=== PATIENT | female | born 1950 | race Caucasian/White ===

== ENCOUNTER 2017-11-22 10:30 | Observation (INO) | payer MEDICARE ==
[2017-11-22 12:33] LABS: BASOPHIL % 0.2 % (0.0-0.4); Basophil (Absolute #) 0.02 (0-0.4); Eosinophil % 0.5 % (0.00-5.0); Eosinophil (Absolute #) 0.04 (0-0.5); Granulocyte Absolute (ANC) 4.75 (1.4-6.9); Granulocytes % 59.2 % (36.0-66.0); Hemoglobin 12.4 gm/dl (12.0-16.0); Lymphocyte (Absolute #) 2.56 (1.0-4.6); Lymphocytes % 31.9 % (24.0-44.0); Mean Cell Volume 92.5 fl (78-100); Mean Corpuscular Hemoglobin 30.2 pg (26-32); Mean Corpuscular Hgb Concent. 32.6 g/dl (32-36); Mean Platelet Volume 11.1 fl (6-9.5); Monocyte (Absolute #) 0.66 (0.0-1.3); Monocytes % 8.2 % (0.0-12.0); Platelet Count 184 K/mm3 (150-450); Red Blood Count 4.11 M/mm3 (4.1-5.4); Red Cell Distribution Width 14.9 % (11.5-14.0)
[2017-11-22 13:16] LABS: ALKALINE PHOSPHATASE 72 U/L (38-126); ANION GAP 13.7 MEQ/L (5-15); BLOOD UREA NITROGEN 15 mg/dL (7-17); CHLORIDE 103 mmol/L (98-107); Calcium 9.4 mg/dL (8.4-10.2); Carbon Dioxide 27 mmol/L (22-30); Creatinine 1 0.76 mg/dL (0.52-1.04); Glucose 129 mg/dL (74-106); Potassium 4.4 mmol/L (3.5-5.1); SGOT/AST 24 U/L (14-36); SGPT/ALT 26 U/L (0-35); SODIUM 139 mmol/L (137-145); Total Protein 7.2 g/dL (6.3-8.2)
[2017-11-22] MEDS ORDERED: Zofran 4 MG/2 ML VIAL IV PRN (14:10)
[2017-11-22] MEDS ORDERED: NovoLOG Insulin SQ PRN (14:16)
[2017-11-22] MEDS: SUBLIMAZE 100 MCG/2 ML IV PRN ×2 (14:27→20:41)
[2017-11-22] MEDS ORDERED: TYLENOL 325 MG PO PRN (14:43)
[2017-11-22] MEDS ORDERED: PROVENTIL 2.5 MG/3 ML NEB IH PRN (14:43)
[2017-11-22] MEDS ORDERED: Nitrostat 0.4 MG Tablet SL PRN (14:45)
[2017-11-22] MEDS: FLAGYL 500 MG IVPB 500 MG/100 ML BAG IV SCH ×2 (14:53→22:26)
[2017-11-22] MEDS: Sodium Chloride 0.9% 1000 ML 1,000 ML IV SCH (14:53)
[2017-11-22] MEDS ORDERED: MEDICATION INTERVENTION MC SCH (15:00)
[2017-11-22] MEDS ORDERED: NON-FORMULARY ITEM (Dicyclomine Hcl [Dicyclomine Hcl] 10 MG) PO SCH (15:00)
[2017-11-22 16:12] LABS: AMYLASE 57 U/L (30-110); LIPASE 58 U/L (23-300)
[2017-11-22] MEDS: BENTYL 20 MG PO SCH ×2 (16:23→21:06)
[2017-11-22] MEDS: NovoLOG Insulin SQ SCH (16:24)
[2017-11-22] MEDS ORDERED: INSULIN ASPART 30 UNIT SQ SCH (17:00)
--- NOTE | 2017-11-22 18:11 | XRAY ---
Exam: CT of the abdomen and pelvis without and with IV contrast from 11/22/2017. CTDI: 23.68 Comparison: CT of the abdomen and pelvis without IV contrast from 08/20/2016. Indication: Complains of diffuse abdominal pain 1 day, constipation, nausea/vomiting. The patient gives a prior history of partial sigmoid colon resection due to diverticulitis, cholecystectomy, appendectomy, and hysterectomy. She also states that she has had a right lower lobe lung resection and prior right breast surgery. Technique: Non-IV contrast axial images were obtained through the abdomen down to the midpelvis. Subsequently, multiple post-IV contrast axial images were obtained through the abdomen and pelvis during and following automated injection of 100 cc of Isovue-370 contrast material.. Delayed axial images were obtained through the abdomen and pelvis as well. Reconstructed coronal and sagittal images were created and reviewed. No oral contrast was given. Findings: The lung bases reveal no active disease. There is some mild pleural thickening along the posterior and posterior medial aspects of the right lung base representing no change. The non-IV contrast images reveal an unremarkable uniform attenuation within the liver. There is evidence of prior cholecystectomy. No renal calculi or hydronephrosis is seen. Abundant stool is seen within the colon suggesting constipation. There appears to be a small supraumbilical ventral hernia. A portion of colon protrudes into the ventral hernia, although I see no obstruction or strangulation. In retrospect, I believe this is seen on the prior study, although it is easier to detect on the current exam. There is a prominent inferior portion of the right lobe of the liver suggestive of a Simona's lobe (normal variant). No hepatic mass or pathological biliary duct distention is seen. The spleen is of normal size and reveals no mass. A small calcified splenic granuloma is seen. The pancreas is identified and appears unremarkable. There is some prominence of the distal common bile duct at the level of pancreatic head. It measures 10 mm in diameter which is likely a consequence of prior cholecystectomy. The adrenal glands appear unremarkable. Both kidneys function and reveal no mass or hydronephrosis. Bilateral extrarenal pelvi are seen, larger on the right than left, as an incidental note. Portions of both ureters are identified which appear unremarkable. No gross abnormality of the urinary bladder is seen, although it is not well distended. Moderate atherosclerotic vascular calcification is seen within the abdominal aorta, renal arteries, mesenteric arteries, and iliac arteries including the common femoral arteries. No abdominal aortic aneurysm is seen. No abnormal retroperitoneal lymphadenopathy is seen. There is no free intraperitoneal air. The appendix is surgically absent. No inflammatory changes are seen within the right lower quadrant. Suture material is seen within the lower pelvis at the site of partial sigmoid colon resection with reanastomoses. This is unchanged. I still note some scattered diverticula within the descending colon and proximal sigmoid colon. No findings of acute diverticulitis are seen. There is no evidence of bowel obstruction or bowel wall thickening. I again note moderate colonic stool retention suggestive of constipation. The pelvis reveals evidence of prior hysterectomy. I cannot exclude a tiny amount of nonspecific free fluid within the lower pelvis just to the right of midline on delayed axial images #71 and #72. A small amount of air is seen within the vaginal vault. This is unchanged from 08/20/2016. The ovaries are unable to be confidently identified. The skeleton reveals no acute fracture or aggressive bone lesion. 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 Very prominent posterior osteophyte is seen at L3-L4 representing no change. There appears to be compromise of the spinal sac (i.e. spinal stenosis) at this level on axial image #39 of series #5 and sagittal images #95 through number #97 of series #106. I believe this is unchanged from 08/20/2016. Mild posterior osteophyte formation is seen at L4-L5 and L5-S1 as well. Impression: 1. There is a small supraumbilical ventral hernia which contains a "knuckle" of transverse colon within it. However, I see no evidence of bowel obstruction or strangulation. This ventral hernia is a bit more evident than on the prior study of 08/20/2016. 2. Status post partial sigmoid colon resection with reanastomosis. Mild scattered colonic diverticulosis is again seen throughout the remainder of the descending colon and proximal sigmoid colon. No findings of recurrent acute diverticulitis are seen. 3. Abundant scattered stool is seen within the colon consistent with constipation. 4. No other acute inflammatory process or free air or significant free fluid is seen. There may be a tiny amount of free intraperitoneal fluid within the lower pelvis to the right of midline. This is nonspecific. 5. The patient is status post appendectomy, cholecystectomy, and hysterectomy as well. 6. Skeletal findings, as discussed above. These findings are stable.
[2017-11-22] MEDS: Pepcid 20 MG VIAL IV SCH (21:05)
[2017-11-22] MEDS: Ranexa 500 MG PO SCH (21:06)
[2017-11-22] MEDS: NEURONTIN 300 MG PO SCH (21:06)
[2017-11-22] MEDS: FEOSOL 325 MG PO SCH (21:06)
[2017-11-22] MEDS: Novolin N SQ SCH (21:15)
[2017-11-22] MEDS ORDERED: DUONEB 0.5-3 MG/3 ml Neb IH PRN (21:23)
[2017-11-22] MEDS ORDERED: ZOCOR 20MG PO SCH (22:00)
[2017-11-22] MEDS ORDERED: PROTONIX 40 MG IV IV SCH (22:00)
[2017-11-22] MEDS ORDERED: NON-FORMULARY ITEM (Glycopyrrolate/Formoterol Fum [Bevespi Aerosphere Inhaler] 2 PUFF) IH SCH (22:00)
[2017-11-23] MEDS: Sodium Chloride 0.9% 1000 ML 1,000 ML IV SCH (04:33)
[2017-11-23] MEDS: FLAGYL 500 MG IVPB 500 MG/100 ML BAG IV SCH (06:30)
[2017-11-23] MEDS: Novolin N SQ SCH (08:37)
[2017-11-23] MEDS: NovoLOG Insulin SQ SCH ×2 (08:38→12:09)
[2017-11-23] MEDS ORDERED: Glucophage 500 MG PO SCH (10:00)
[2017-11-23] MEDS ORDERED: DHA PO SCH (10:00)
[2017-11-23] MEDS ORDERED: Colace 100 MG PO SCH (10:00)
[2017-11-23] MEDS ORDERED: FISH OIL PO SCH (10:00)
[2017-11-23] MEDS ORDERED: EPA PO SCH (10:00)
[2017-11-23] MEDS ORDERED: Zestril 5 MG PO SCH (10:00)
[2017-11-23] MEDS ORDERED: Imdur 30 MG PO SCH (10:00)
[2017-11-23] MEDS ORDERED: Prozac 20 MG PO SCH (10:00)
[2017-11-23] MEDS ORDERED: BABY ASPIRIN 81 MG CHEW PO SCH (10:00)
[2017-11-23] MEDS ORDERED: ECOTRIN 81 MG PO SCH (10:00)
[2017-11-23] MEDS ORDERED: Tricor 145 MG PO SCH (10:00)
[2017-11-23] MEDS ORDERED: FENOFIBRATE 145 MG PO SCH (10:00)
[2017-11-23] MEDS ORDERED: NON-FORMULARY ITEM (Docusate Sodium 100 MG) PO SCH (10:00)
[2017-11-23] MEDS ORDERED: HOLD METFORMIN PRODUCTS FOR 48 HOURS MC SCH (10:00)
[2017-11-23] MEDS ORDERED: FISH OIL 1,000 MG CAPSULE PO SCH (10:00)
[2017-11-23] MEDS ORDERED: SYNTHROID 25 MCG PO SCH (10:00)
[2017-11-23] MEDS ORDERED: AMARYL 4 MG PO SCH (10:00)
[2017-11-23] MEDS ORDERED: NON-FORMULARY ITEM (Fluoxetine Hcl [Fluoxetine Hcl] 40 MG) PO SCH (10:00)
[2017-11-23] MEDS: BENTYL 20 MG PO SCH (10:03)
[2017-11-23] MEDS: Ranexa 500 MG PO SCH (10:03)
[2017-11-23] MEDS: NEURONTIN 300 MG PO SCH (10:04)
[2017-11-23] MEDS: FEOSOL 325 MG PO SCH (10:04)
[2017-11-23] MEDS: Pepcid 20 MG VIAL IV SCH (10:05)
[2017-11-23 11:20] VITALS: BP 119/60; PULSE 63; O2SAT 98
--- NOTE | 2017-11-23 12:32 | PCM.DS ---
Discharge Summary Date of Admission: 11/22/17 11:05 Admitting Physician: BONIFACIO GRAY Primary Care Provider: MAYANK COX Allergies Allergies hydromorphone [From Dilaudid] Allergy (Severe, Verified 11/22/17 16:45) morphine Allergy (Severe, Verified 11/22/17 14:54) B/P issues. Becomes SOB. acetaminophen [From Darvocet-N 100] Allergy (Verified 03/20/13 15:41) "SHUTS DOWN MY SYSTEM" amoxicillin [From Augmentin] Allergy (Verified 11/22/17 16:59) clavulanic acid [From Augmentin] Allergy (Verified 11/22/17 16:59) codeine Allergy (Verified 03/20/13 15:41) "SHUTS MY SYSTEMS DOWN" nalbuphine HCl [From Nubain] Allergy (Verified 03/20/13 15:41) "SHUTS MY SYSTEM DOWN" propoxyphene napsylate [From Darvocet-N 100] Allergy (Verified 03/20/13 15:41) "SHUTS DOWN MY SYSTEM" smz-tmp ds Allergy (Uncoded 11/22/17 16:59) surgerical tape Adverse Reaction (Uncoded 11/22/17 17:27) Hospital Summary - Hospital Course Hospital Course: Chief Complaint Diagnosis Diverticulitis Allergies Allergy/AdvReac Type Severity Reaction Status Date / Time hydromorphone [From Dilaudid] Allergy Severe Verified 11/22/17 16:45 morphine Allergy Severe Verified 11/22/17 14:54 acetaminophen Allergy "SHUTS Verified 03/20/13 15:41 [From Darvocet-N 100] DOWN MY SYSTEM" amoxicillin [From Augmentin] Allergy Verified 11/22/17 16:59 clavulanic acid Allergy Verified 11/22/17 16:59 [From Augmentin] codeine Allergy "SHUTS MY Verified 03/20/13 15:41 SYSTEMS DOWN" nalbuphine HCl [From Nubain] Allergy "SHUTS MY Verified 03/20/13 15:41 SYSTEM DOWN" propoxyphene napsylate Allergy "SHUTS Verified 03/20/13 15:41 [From Darvocet-N 100] DOWN MY SYSTEM" smz-tmp ds Allergy Uncoded 11/22/17 16:59 surgerical tape AdvReac Uncoded 11/22/17 17:27 Vital Signs (Last 24 hours) Temp Pulse Resp BP BP Pulse Ox 11/23/17 11:20 98.0 F 63 18 119/60 98 11/23/17 07:37 99.4 F 67 18 112/56 97 11/23/17 04:03 98.2 F 63 18 121/59 98 11/22/17 23:57 98.5 F 63 18 114/56 96 11/22/17 19:54 98.4 F 64 18 106/51 106/51 96 11/22/17 19:21 63 18 94 L 11/22/17 16:06 98 F 67 20 138/61 96 Home Medications Medication Instructions Recorded Confirmed Last Taken Type Acetaminophen 325 mg [Tylenol 650 mg PO Q4H PRN PRN 11/22/17 11/22/17 Unknown History 325 mg] Albuterol 2.5 mg/3 ml Neb 2.5 mg IH Q6HPRN PRN 11/22/17 11/22/17 Unknown History [Proventil 2.5 mg/3 ml Neb] Dicyclomine HCl 10 mg PO TID 11/22/17 11/22/17 11/22/17 History Docusate Sodium 100 mg PO DAILY 11/22/17 11/22/17 11/22/17 History 100 mg Famotidine 20 mg [Pepcid 20 20 mg PO BID 11/22/17 11/22/17 11/22/17 History MG] 20 mg Ferrous Sulfate 325 mg PO BID 11/22/17 11/22/17 11/22/17 History Fish Oil/Dha/Epa [Fish Oil 1,200 1 each PO DAILY 11/22/17 11/22/17 11/22/17 History mg Fish Oil] Glimepiride 4 mg [Amaryl 4 4 mg PO BID 11/22/17 11/22/17 11/22/17 History mg] Glycopyrrolate/Formoterol Fum 2 puff IH BID 11/22/17 11/22/17 11/22/17 History [Bevespi Aerosphere Inhaler] Insulin Aspart [Novolog Flexpen] 30 unit SQ TID 11/22/17 11/22/17 11/22/17 History Insulin NPH Human Recom [Novolin 100 unit SQ BID 11/22/17 11/22/17 11/22/17 History N] Levothyroxine Sodium 25 Mcg 25 mcg PO DAILY 11/22/17 11/22/17 11/22/17 History [Synthroid 25 Mcg] Metformin HCl 500 mg PO DAILY 11/22/17 11/22/17 11/22/17 History 500 mg Nitroglycerin 0.4 mg Tablet 0.4 mg SL UD 11/22/17 11/22/17 Unknown History [Nitrostat 0.4 MG Tablet] Ranolazine 500 MG [Ranexa 500 500 mg PO BID 11/22/17 11/22/17 11/22/17 History MG] Simvastatin 40 mg [Zocor 40 mg] 40 mg PO HS 11/22/17 11/22/17 1 Day Ago History ~11/21/17 40 mg Current Medications Generic Name Dose Route Start Last Admin Trade Name Freq PRN Reason Stop Dose Admin Acetaminophen 650 mg 11/22/17 14:43 11/22/17 19:40 Tylenol 325 Mg PO 12/22/17 14:42 650 mg Q4H PRN PRN Administration pain or temp Albuterol/Ipratropium 3 ml 11/22/17 21:23 Duoneb 0.5-3 Mg/3 Ml Neb IH 12/22/17 21:22 QIDPRN PRN SHORTNESS OF BREATH/WHEEZING Aspirin 81 mg 11/23/17 10:00 11/23/17 10:03 Ecotrin 81 Mg PO 12/23/17 09:59 81 mg DAILY ERIC Administration Dicyclomine HCl 10 mg 11/22/17 15:00 11/23/17 10:03 Bentyl 20 Mg PO 12/22/17 14:59 10 mg TID ERIC Administration Docusate Sodium 100 mg 11/23/17 10:00 11/23/17 10:04 Colace 100 Mg PO 12/23/17 09:59 100 mg DAILY ERIC Administration Famotidine 20 mg 11/22/17 22:00 11/23/17 10:05 Pepcid 20 Mg Vial IV 12/22/17 21:59 20 mg Q12HT ERIC Administration Fenofibrate 145 mg 11/23/17 10:00 11/23/17 10:04 Tricor 145 Mg PO 12/23/17 09:59 145 mg DAILY ERIC Administration Fentanyl Citrate 50 mcg 11/22/17 14:08 11/22/17 20:41 Sublimaze 100 Mcg/2 Ml IV 11/27/17 14:07 50 mcg Q6H PRN PRN Administration PAIN Ferrous Sulfate 325 mg 11/22/17 22:00 11/23/17 10:04 Feosol 325 Mg PO 12/22/17 21:59 325 mg BID ERIC Administration Fish Oil 1,000 mg 11/23/17 10:00 11/23/17 10:04 Fish Oil 1,000 Mg Capsule PO 12/23/17 09:59 1,000 mg DAILY ERIC Administration Fluoxetine HCl 40 mg 11/23/17 10:00 11/23/17 10:04 Prozac 20 Mg PO 12/23/17 09:59 40 mg DAILY ERIC Administration Gabapentin 300 mg 11/22/17 22:00 11/23/17 10:04 Neurontin 300 Mg PO 12/22/17 21:59 300 mg BID ERIC Administration Glimepiride 4 mg 11/23/17 10:00 11/23/17 11:12 Amaryl 4 Mg PO 12/23/17 09:59 4 mg BID ERIC Administration Heparin Sodium (Beef Lung) 500 units 11/22/17 15:06 Heparin Lock Flush 100 Units/Ml 5ml Syringe PORT FLUSH 12/22/17 15:05 PRN PRN IV PORT FLUSH Metronidazole 500 mg in 100 mls @ 200 mls/hr 11/22/17 14:30 11/23/17 06:30 Flagyl 500 Mg Ivpb IV 12/22/17 14:29 200 mls/hr Q8HT ERIC Administration Sodium Chloride 1,000 mls @ 30 mls/hr 11/22/17 14:15 11/23/17 04:33 Sodium Chloride 0.9% 1000 Ml IV 12/22/17 14:14 60 mls/hr .Q24H ERIC Administration Insulin Aspart 0 unit 11/22/17 14:16 Novolog Insulin SQ 12/22/17 14:15 UD PRN HYPERGLYCEMIA Insulin Aspart 30 unit 11/22/17 17:00 11/23/17 12:09 Novolog Insulin SQ 12/22/17 16:59 30 unit TIDWM ERIC Administration Insulin Human NPH 100 unit 11/22/17 22:00 11/23/17 08:37 Novolin N SQ 12/22/17 21:59 Not Given BIDWM ERIC Isosorbide Mononitrate 30 mg 11/23/17 10:00 11/23/17 10:03 Imdur 30 Mg PO 12/23/17 09:59 30 mg DAILY ERIC Administration Levothyroxine Sodium 25 mcg 11/23/17 10:00 11/23/17 10:04 Synthroid 25 Mcg PO 12/23/17 09:59 25 mcg DAILY ERIC Administration Lisinopril 5 mg 11/23/17 10:00 11/23/17 10:04 Zestril 5 Mg PO 12/23/17 09:59 5 mg DAILY ERIC Administration Metformin HCl 500 mg 11/23/17 10:00 11/23/17 10:04 Glucophage 500 Mg PO 12/23/17 09:59 500 mg DAILY ERIC Administration Miscellaneous Information 0 each 11/22/17 15:00 Medication Intervention 12/22/17 14:59 .RT TO CHECK WITH PT [facility] Nitroglycerin 0.4 mg 11/22/17 14:45 Nitrostat 0.4 Mg Tablet 12/22/17 14:44 PRN PRN Non-Formulary Medication 1 each 11/23/17 10:00 Hold Metformin Products For 48 Hours 11/24/17 10:01 DAILY [facility] Ondansetron HCl 4 mg 11/22/17 14:10 Zofran 4 Mg/2 Ml Vial IV 12/22/17 14:09 Q6H PRN PRN NAUSEA/VOMITING Pantoprazole Sodium 40 mg 11/22/17 22:00 11/22/17 21:01 Protonix 40 Mg Iv IV 12/22/17 21:59 40 mg HS ERIC Administration Ranolazine 500 mg 11/22/17 22:00 11/23/17 10:03 Ranexa 500 Mg PO 12/22/17 21:59 500 mg BID ERIC Administration Simvastatin 40 mg 11/22/17 22:00 11/22/17 21:06 Zocor 20mg PO 12/22/17 21:59 40 mg HS ERIC Administration Discontinued Medications Generic Name Dose Route Start Last Admin Trade Name Freq PRN Reason Stop Dose Admin Albuterol Sulfate 2.5 mg 11/22/17 14:43 Proventil 2.5 Mg/3 Ml Neb IH 12/22/17 14:42 Q6HPRN PRN wheezing/sob Intake & Output (Last 24 hours) 11/21/17 11/22/17 11/23/17 11/24/17 11:59 11:59 11:59 11:59 Intake Total 2803 Output Total 3100 Balance -297 Weight 98.8 kg Laboratory Results (Last 24 hours) 11/22/17 11/22/17 11/22/17 Unknown 16:15 15:08 WBC RBC Hgb Hct MCV MCH MCHC RDW Plt Count MPV Gran % Eos # (Auto) Absolute Lymphs (auto) Absolute Monos (auto) Lymphocytes % Monocytes % Eosinophils % Basophils % Absolute Granulocytes Basophils # Sodium Potassium Chloride Carbon Dioxide Anion Gap BUN Creatinine Estimated GFR Glucose 42 L* Hemoglobin A1c 6.76 H Lactic Acid Calcium Total Bilirubin AST ALT Alkaline Phosphatase Serum Total Protein Albumin Amylase 57 Lipase 58 11/22/17 11/22/17 11/22/17 14:15 12:25 12:25 WBC 8.0 RBC 4.11 Hgb 12.4 Hct 38.0 MCV 92.5 MCH 30.2 MCHC 32.6 RDW 14.9 H Plt Count 184 MPV 11.1 H Gran % 59.2 Eos # (Auto) 0.04 Absolute Lymphs (auto) 2.56 Absolute Monos (auto) 0.66 Lymphocytes % 31.9 Monocytes % 8.2 Eosinophils % 0.5 Basophils % 0.2 Absolute Granulocytes 4.75 Basophils # 0.02 Sodium 139 Potassium 4.4 Chloride 103 Carbon Dioxide 27 Anion Gap 13.7 BUN 15 Creatinine 0.76 Estimated GFR > 60.0 Glucose 129 H Hemoglobin A1c Lactic Acid 1.2 Calcium 9.4 Total Bilirubin 0.60 AST 24 ALT 26 Alkaline Phosphatase 72 Serum Total Protein 7.2 Albumin 4.0 Amylase Lipase Orders (Last 24 hours) Category Date Time Status ACCUCHECK [Accucheck] ACHS Care 11/22/17 14:17 Active Infection Control Consult ROUTINE Cons 11/22/17 12:14 Active 1800 Calorie ADA Diet 11/22/17 Dinner Active ABDOMEN AND PELVIS W&WO CONTRA [CT] Routine Exams 11/22/17 14:18 Completed AMYLASE Routine Lab 11/22/17 15:08 Completed CBC W DIFF Urgent Lab 11/22/17 12:25 Completed CMP Urgent Lab 11/22/17 12:25 Completed Glucose Routine Lab 11/22/17 16:15 Completed LIPASE Routine Lab 11/22/17 15:08 Completed Lactic Acid Routine Lab 11/22/17 14:15 Completed Acetaminophen 325 mg [Tylenol 325 mg] Med 11/22/17 14:43 Active 650 mg PO Q4H PRN PRN Albuterol 2.5 mg/3 ml Neb [Proventil 2.5 mg/3 ml Neb Med 11/22/17 14:43 Discontinued ] 2.5 mg IH Q6HPRN PRN Albuterol/Ipratropium 3ml Neb* [DUONEB 0.5-3 MG/3 ml Med 11/22/17 21:23 Active Neb] 3 ml IH QIDPRN PRN Aspirin EC 81 mg [Ecotrin 81 mg] Med 11/23/17 10:00 Active 81 mg PO DAILY Dicyclomine HCl 20 mg [Bentyl 20 mg] Med 11/22/17 15:00 Active 10 mg PO TID Docusate Sodium 100 mg [Colace 100 MG] Med 11/23/17 10:00 Active 100 mg PO DAILY Famotidine 20 mg Vial [Pepcid 20 MG VIAL] Med 11/22/17 22:00 Active 20 mg IV Q12HT Fenofibrate,Micronized 145 mg* [Tricor 145 MG] Med 11/23/17 10:00 Active 145 mg PO DAILY Fentanyl Citrate 100 Mcg/2 ml* [Sublimaze 100 Mcg/2 ml* Med 11/22/17 14:08 Active ] 50 mcg IV Q6H PRN PRN Ferrous Sulfate 325 mg [Feosol 325 mg] Med 11/22/17 22:00 Active 325 mg PO BID Fluoxetine HCl 20 mg [Prozac 20 MG] Med 11/23/17 10:00 Active 40 mg PO DAILY Gabapentin 300 mg [Neurontin 300 mg] Med 11/22/17 22:00 Active 300 mg PO BID Glimepiride 4 mg [Amaryl 4 mg] Med 11/23/17 10:00 Active 4 mg PO BID Heparin Flush 500 units/5 ml [Heparin Lock Flush 100 Med 11/22/17 15:06 Active Units/ml 5ml Syringe] 500 units PORT FLUSH PRN PRN Hold Metformin [Hold Metformin Products For 48 Hours] Med 11/23/17 10:00 Active 1 each DAILY Insulin Aspart [NovoLOG Insulin] Med 11/22/17 17:00 Active 30 unit SQ TIDWM Insulin Aspart [NovoLOG Insulin] Med 11/22/17 14:16 Active See Dose Instructions SQ UD PRN Insulin NPH Human Recom [Novolin N] Med 11/22/17 22:00 Active 100 unit SQ BIDWM Isosorbide Mononitrate 30 mg [Imdur 30 MG] Med 11/23/17 10:00 Active 30 mg PO DAILY Levothyroxine Sodium 25 Mcg [Synthroid 25 Mcg] Med 11/23/17 10:00 Active 25 mcg PO DAILY Lisinopril 5 mg [Zestril 5 MG] Med 11/23/17 10:00 Active 5 mg PO DAILY Medication Intervention Med 11/22/17 15:00 Active 0 each .RT TO CHECK WITH PT Metformin HCl 500 mg [Glucophage 500 MG] Med 11/23/17 10:00 Active 500 mg PO DAILY Metronidazole 500 mg Premix [Flagyl 500 mg Ivpb] Med 11/22/17 14:30 Active 500 mg in 100 ml IV Q8HT NaCl 0.9% 1000 ml [Sodium Chloride 0.9% 1000 ML] 1,000 Med 11/22/17 14:15 Active ml IV 30 mls/hr Nitroglycerin 0.4 mg Tablet [Nitrostat 0.4 MG Tablet Med 11/22/17 14:45 Active ] 0.4 mg SL PRN PRN [place]-3 Fatty Acids/Fish Oil [Fish Oil 1,000 mg Med 11/23/17 10:00 Active Capsule] 1,000 mg PO DAILY Ondansetron HCl 4 mg/2 ml [Zofran 4 MG/2 ML VIAL] Med 11/22/17 14:10 Active 4 mg IV Q6H PRN PRN Pantoprazole 40 mg [Protonix 40 mg IV] Med 11/22/17 22:00 Active 40 mg IV HS Ranolazine 500 MG [Ranexa 500 MG] Med 11/22/17 22:00 Active 500 mg PO BID Simvastatin 20Mg [Zocor 20Mg] Med 11/22/17 22:00 Active 40 mg PO HS Respiratory Nebulizer PRN RT 11/22/17 21:23 Active Patient Care Notes (Last 24 hours) 11/23/17 08:38 Nursing Note by Anushka Michel AM scheduled insulin held , accu check 110. Discussed with pt regarding her low blood sugar 11/22/17. Pt refused insulin this am. Initialized on 11/23/17 08:38 - END OF NOTE 11/22/17 16:59 Nursing Note by Anushka Michel Glucose 42. Pt has eaten since glucose was taken. Accu check [address] Gray aware. Initialized on 11/22/17 16:59 - END OF NOTE 11/22/17 16:31 Nursing Note by Anushka Michel Dr called and received update on pt. Initialized on 11/22/17 16:31 - END OF NOTE 11/22/17 16:03 Nursing Note by Anushka Michel Callled the lab department to let them be aware of new order. Initialized on 11/22/17 16:03 - END OF NOTE - Vitals & Intake/Output Vital Signs: Vital Signs Temperature 98.0 F 11/23/17 11:20 Pulse Rate 63 11/23/17 11:20 Respiratory Rate 18 11/23/17 11:20 Blood Pressure 119/60 11/23/17 11:20 O2 Sat by Pulse Oximetry 98 11/23/17 11:20 Intake & Output: Intake & Output 11/21/17 11/22/17 11/23/17 11/24/17 11:59 11:59 11:59 11:59 Intake Total 2803 Output Total 3100 Balance -297 Weight 98.8 kg - Lab Result Diagrams: 11/22/17 12:25 11/22/17 12:25 Lab Results-Last 24 Hrs: Accuchecks Date 11/23/17 Date 11/23/17 Date 11/22/17 Date 11/22/17 Time 11:30 Time 07:30 Time 22:00 Time 16:00 Accucheck Value: 187 Accucheck Value: 110 Accucheck Value: 88 Accucheck Value: 45 Lab Results-Last 24 Hours 11/22/17 11/22/17 11/22/17 Range/Units 12:25 12:25 14:15 WBC 8.0 (4.0-10.5) K/mm3 RBC 4.11 (4.1-5.4) M/mm3 Hgb 12.4 (12.0-16.0) gm/dl Hct 38.0 (35-47) % MCV 92.5 (78-100) fl MCH 30.2 (26-32) pg MCHC 32.6 (32-36) g/dl RDW 14.9 H (11.5-14.0) % Plt Count 184 (150-450) K/mm3 MPV 11.1 H (6-9.5) fl Gran % 59.2 (36.0-66.0) % Eos # (Auto) 0.04 (0-0.5) Absolute Lymphs (auto) 2.56 (1.0-4.6) Absolute Monos (auto) 0.66 (0.0-1.3) Lymphocytes % 31.9 (24.0-44.0) % Monocytes % 8.2 (0.0-12.0) % Eosinophils % 0.5 (0.00-5.0) % Basophils % 0.2 (0.0-0.4) % Absolute Granulocytes 4.75 (1.4-6.9) Basophils # 0.02 (0-0.4) Sodium 139 (137-145) mmol/L Potassium 4.4 (3.5-5.1) mmol/L Chloride 103 (98-107) mmol/L Carbon Dioxide 27 (22-30) mmol/L Anion Gap 13.7 (5-15) MEQ/L BUN 15 (7-17) mg/dL Creatinine 0.76 (0.52-1.04) mg/dL Estimated GFR > 60.0 ML/MIN Glucose 129 H (74-106) mg/dL Hemoglobin A1c (4.5-6.0) % Lactic Acid 1.2 (0.4-2.0) Calcium 9.4 (8.4-10.2) mg/dL Total Bilirubin 0.60 (0.2-1.3) mg/dL AST 24 (14-36) U/L ALT 26 (0-35) U/L Alkaline Phosphatase 72 (38-126) U/L Serum Total Protein 7.2 (6.3-8.2) g/dL Albumin 4.0 (3.5-5.0) g/dL Amylase (30-110) U/L Lipase (23-300) U/L 11/22/17 11/22/17 11/22/17 Range/Units 15:08 16:15 Unknown WBC (4.0-10.5) K/mm3 RBC (4.1-5.4) M/mm3 Hgb (12.0-16.0) gm/dl Hct (35-47) % MCV (78-100) fl MCH (26-32) pg MCHC (32-36) g/dl RDW (11.5-14.0) % Plt Count (150-450) K/mm3 MPV (6-9.5) fl Gran % (36.0-66.0) % Eos # (Auto) (0-0.5) Absolute Lymphs (auto) (1.0-4.6) Absolute Monos (auto) (0.0-1.3) Lymphocytes % (24.0-44.0) % Monocytes % (0.0-12.0) % Eosinophils % (0.00-5.0) % Basophils % (0.0-0.4) % Absolute Granulocytes (1.4-6.9) Basophils # (0-0.4) Sodium (137-145) mmol/L Potassium (3.5-5.1) mmol/L Chloride (98-107) mmol/L Carbon Dioxide (22-30) mmol/L Anion Gap (5-15) MEQ/L BUN (7-17) mg/dL Creatinine (0.52-1.04) mg/dL Estimated GFR ML/MIN Glucose 42 L* (74-106) mg/dL Hemoglobin A1c 6.76 H (4.5-6.0) % Lactic Acid (0.4-2.0) Calcium (8.4-10.2) mg/dL Total Bilirubin (0.2-1.3) mg/dL AST (14-36) U/L ALT (0-35) U/L Alkaline Phosphatase (38-126) U/L Serum Total Protein (6.3-8.2) g/dL Albumin (3.5-5.0) g/dL Amylase 57 (30-110) U/L Lipase 58 (23-300) U/L Micro Results-Entire Visit: Accuchecks Date 11/23/17 Date 11/23/17 Date 11/22/17 Date 11/22/17 Time 11:30 Time 07:30 Time 22:00 Time 16:00 Accucheck Value: 187 Accucheck Value: 110 Accucheck Value: 88 Accucheck Value: 45 - Radiology Exams Ordered Rad Exams-Entire Visit: Radiology Procedures Category Date Time Status ABDOMEN AND PELVIS W&WO CONTRA [CT] Routine Exams 11/22/17 14:18 Completed - Procedures and Test Procedures and Tests throughout Hospitalization: Therapy Orders & Screens 11/22/17 21:23 Respiratory Nebulizer PRN Comment: JULIAN KENDRICK Diagnosis: Diverticulitis Discharge Exam General Appearance: no apparent distress, alert Neurologic Exam: alert, oriented x 3, cooperative, normal mood/affect, nml cerebellar function, sensation nml, No motor deficits Skin Exam: normal color, warm, dry Eye Exam: PERRL, EOMI, eyes nml inspection Ears, Nose, Throat Exam: normal ENT inspection, pharynx normal, moist mucous membranes Neck Exam: normal inspection, non-tender, supple, full range of motion Respiratory Exam: normal breath sounds, lungs clear, No respiratory distress Cardiovascular Exam: regular rate/rhythm, normal heart sounds Gastrointestinal/Abdomen Exam: soft, No tenderness, No mass Extremity Exam: normal inspection, normal range of motion Back Exam: normal inspection, normal range of motion, No CVA tenderness, No vertebral tenderness Pelvic Exam: deferred Rectal Exam: deferred Final Diagnosis/Problem List - Final Discharge Diagnosis/Problem (1) Diverticulitis Current Visit: Yes Status: Acute Onset Date: ~11/22/17 - Discharge Disposition: Home, Self-Care Condition: Stable Prescriptions: No Action Lisinopril 5 mg [Zestril 5 MG] 5 mg PO DAILY Omeprazole 20 MG [Prilosec 20 mg] 20 mg PO DAILY Gabapentin 300 mg [Neurontin 300 mg] 300 mg PO BID Fluoxetine HCl 40 mg PO DAILY Isosorbide Mononitrate 30 mg [Imdur 30 MG] 30 mg PO DAILY Fenofibrate [Lipofen] 145 mg PO DAILY Aspirin [Baby Aspirin] 81 mg PO DAILY Famotidine 20 mg [Pepcid 20 MG] 20 mg PO BID Simvastatin 40 mg [Zocor 40 mg] 40 mg PO HS Acetaminophen 325 mg [Tylenol 325 mg] 650 mg PO Q4H PRN PRN PRN Reason: pain or temp Docusate Sodium 100 mg PO DAILY Metformin HCl 500 mg PO DAILY Fish Oil/Dha/Epa [Fish Oil 1,200 mg Fish Oil] 1 each PO DAILY Nitroglycerin 0.4 mg Tablet [Nitrostat 0.4 MG Tablet] 0.4 mg SL UD Insulin NPH Human Recom [Novolin N] 100 unit SQ BID Ranolazine 500 MG [Ranexa 500 MG] 500 mg PO BID Ferrous Sulfate 325 mg PO BID Insulin Aspart [Novolog Flexpen] 30 unit SQ TID Dicyclomine HCl 10 mg PO TID Levothyroxine Sodium 25 Mcg [Synthroid 25 Mcg] 25 mcg PO DAILY Glimepiride 4 mg [Amaryl 4 mg] 4 mg PO BID Glycopyrrolate/Formoterol Fum [Bevespi Aerosphere Inhaler] 2 puff IH BID Albuterol 2.5 mg/3 ml Neb [Proventil 2.5 mg/3 ml Neb] 2.5 mg IH Q6HPRN PRN PRN Reason: wheezing/sob Follow up with: MAYANK COX [Primary Care Provider] - 1 Week
== END 2017-11-23 13:30 | disposition home or self-care (01) ==
LOC: MED SURG 11:05
PROVIDERS: ADMIT General Practice; ATTEND General Practice
DX: K57.32 Diverticulitis of large intestine without perforation or abscess without bleeding (principal); K57.12 Diverticulitis of small intestine without perforation or abscess without bleeding; E10.9 Type 1 diabetes mellitus without complications; Z79.4 Long term (current) use of insulin; M79.7 Fibromyalgia; M19.90 Unspecified osteoarthritis, unspecified site; J44.9 Chronic obstructive pulmonary disease, unspecified; Z85.118 Personal history of other malignant neoplasm of bronchus and lung; Z85.3 Personal history of malignant neoplasm of breast; Z79.899 Other long term (current) drug therapy
CPT/HCPCS: 36415; 74178; 80053; 82150; 82947; 83036; 83605; 83690; 85025; 94760; G0378; J1642; J3010; A9270-GY

== ENCOUNTER 2019-07-23 21:00 | Observation (INO) | payer MEDICARE ==
--- NOTE | 2019-07-23 21:48 | ERPHSYRPT ---
- History of Present Illness Time Seen by Provider: 07/23/19 21:10 Historian: patient Exam Limitations: no limitations Patient Subjective Stated Complaint: pt states she has been sick all day. states she has been weak and her blood sugar was 491 at home. states she began having chest pain on the way into the er. was seen at [facility] and had steroid shot today Triage Nursing Assessment: pt alert and oriented, answers questions approp. pt back per wheelchair and transfers to stretcher with minimal assist. respirations nonlabored with lungs cta. bilat upper and lower ext strength equal and wnl. puils equal and reacitve. heart rate 90 on monitor with sinus rhythm noted. Physician History: Patient is a 68-year-old female history of diabetes presents to our ED with complaints of generalized weakness and chest pain. Patient states that she had a steroid injection today for upper respiratory symptomology. Patient states shortly thereafter she began to feel generalized weakness. Patient checked her glucose at home. Blood glucose was 491. Patient was driving to our ED for an evaluation. In route patient developed chest pain. Chest pain is lower substernal. No radiation. Pain described as an ache. No specific worsening improving factors. No trauma. No fever. Symptoms are moderate in intensity. at bedside. They voiced no other complaints or concerns at this time. Timing/Duration: today Activities at Onset: none Quality: aching Location: substernal Chest Pain Radiation: no radiation Severity of Pain-Max: moderate Severity of Pain-Current: moderate Modifying Factors: Improves With: nothing Associated Symptoms: heartburn, cough, hurts to breathe, diaphoresis, fever, No nausea, No vomiting, No palpitations, No abdominal pain, No shortness of breath , No weakness, No headache Prior Chest Pain/Cardiac Workup: no prior chest pain Nitro Today/Relief: no nitro taken today Aspirin Treatment Today: no aspirin today Allergies/Adverse Reactions: hydromorphone [From Dilaudid] Allergy (Severe, Verified 07/23/19 21:27) morphine Allergy (Severe, Verified 07/24/19 01:46) B/P issues. Becomes SOB. acetaminophen [From Darvocet-N 100] Allergy (Verified 07/23/19 21:27) "SHUTS DOWN MY SYSTEM" amoxicillin [From Augmentin] Allergy (Verified 07/23/19 21:27) clavulanic acid [From Augmentin] Allergy (Verified 07/23/19 21:27) codeine Allergy (Verified 07/23/19 21:27) "SHUTS MY SYSTEMS DOWN" nalbuphine HCl [From Nubain] Allergy (Verified 07/23/19 21:27) "SHUTS MY SYSTEM DOWN" propoxyphene napsylate [From Darvocet-N 100] Allergy (Verified 07/23/19 21:27) "SHUTS DOWN MY SYSTEM" gabapentin [From Neurontin] Adverse Reaction (Verified 07/24/19 03:51) smz-tmp ds Allergy (Uncoded 07/23/19 21:27) surgerical tape Adverse Reaction (Uncoded 07/23/19 21:27) Home Medications: Aspirin [Baby Aspirin] 81 mg PO DAILY 03/20/13 [History] Fluoxetine HCl 40 mg PO HS 03/20/13 [History] Isosorbide Mononitrate 30 mg [Imdur 30 MG] 60 mg PO DAILY 03/20/13 [History ] Lisinopril 5 mg [Zestril 5 MG] 2.5 mg PO DAILY 03/20/13 [History] Omeprazole 20 MG [Prilosec 20 mg] 20 mg PO DAILY 03/20/13 [History] Acetaminophen 325 mg [Tylenol 325 mg] 650 mg PO Q4H PRN PRN 11/22/17 [ History] Docusate Sodium 100 mg PO DAILY 11/22/17 [History] Famotidine 20 mg [Pepcid 20 MG] 20 mg PO HS 11/22/17 [History] Ferrous Sulfate 325 mg PO BID 11/22/17 [History] Glimepiride 4 mg [Amaryl 4 mg] 4 mg PO BID 11/22/17 [History] Insulin Aspart [Novolog Flexpen] 30 unit SQ TID 11/22/17 [History] Insulin NPH Human Recom [Novolin N] 60 unit SQ BID 11/22/17 [History] Metformin HCl 250 mg PO BID 11/22/17 [History] Nitroglycerin 0.4 mg Tablet [Nitrostat 0.4 MG Tablet] 0.4 mg SL UD [History] Ranolazine 500 MG [Ranexa 500 MG] 0 mg PO BID 11/22/17 [History] Atorvastatin Calcium [Lipitor] 40 mg PO DAILY 07/24/19 [History] Carvedilol 3.125 mg [Coreg 3.125 MG] 3.125 mg PO BID 07/24/19 [History] Clopidogrel Bisulfate [Clopidogrel] 1 tab PO DAILY 07/24/19 [History] Ergocalciferol (Vitamin D2) [Vitamin D2] 1 cap PO UD 07/24/19 [History] Nabumetone [Relafen] 500 mg PO BID 07/24/19 [History] Hx Tetanus, Diphtheria Vaccination/Date Given: Yes Hx Influenza Vaccination/Date Given: Yes Hx Pneumococcal Vaccination/Date Given: Yes Immunizations Up to Date: Yes - Review of Systems Constitutional: No Fever, No Chills Eyes: No Symptoms Ears, Nose, & Throat: No Symptoms Respiratory: No Cough, No Dyspnea Cardiac: Chest Pain, No Edema, No Palpitations, No Syncope Abdominal/Gastrointestinal: No Abdominal Pain, No Nausea, No Vomiting, No Diarrhea Genitourinary Symptoms: No Dysuria Musculoskeletal: No Symptoms, No Back Pain, No Neck Pain Skin: No Symptoms, No Rash Neurological: No Dizziness, No Focal Weakness, No Sensory Changes Psychological: No Symptoms Endocrine: No Symptoms All Other Systems: Reviewed and Negative - Past Medical History Pertinent Past Medical History: Yes Neurological History: No Pertinent History ENT History: No Pertinent History Cardiac History: Coronary Artery Disease, High Cholesterol, Hypertension Respiratory History: COPD, Sleep Apnea Endocrine Medical History: Diabetes Type II, Hypothyroidism Musculoskeletal History: Arthritis, Fibromyalgia GI Medical History: Diverticulitis, Hernia History: Other Psycho-Social History: No Pertinent History Female Reproductive Disorders: Breast Cancer Other Medical History: BACK SURGERY LAMINECTOMY L4-L5 1987. BILATERAL CARPAL TUNNEL SURGERY. THORACIC OUTLET SURGERY. PARTIAL COLECTOMY DUE TO DIVERTICULITIS - Past Surgical History Past Surgical History: Yes Neuro Surgical History: No Pertinent History Cardiac: No Pertinent History, Cardiac Stent Respiratory: Lobectomy Gastrointestinal: Appendectomy, Cholecystectomy, Colon Resection, Hernia Repair Genitourinary: No Pertinent History Musculoskeletal: Other Female Surgical History: Hysterectomy, Other Other Surgical History: Right lower lobe lung removed, partial right mastectomy. carpal tunnel. EGD. Colonoscopy. - Social History Smoking Status: Former smoker Exposure to second hand smoke: No Drug Use: none Patient Lives Alone: No - Nursing Vital Signs Nursing Vital Signs: Initial Vital Signs Temperature 97.3 F 07/23/19 21:04 Pulse Rate 90 07/23/19 21:04 Respiratory Rate 20 07/23/19 21:04 Blood Pressure 162/92 07/23/19 21:04 O2 Sat by Pulse Oximetry 96 07/23/19 21:04 Pain Scale Pain Intensity 3 - Physical Exam General Appearance: no apparent distress, alert Eye Exam: PERRL/EOMI, eyes nml inspection Ears, Nose, Throat Exam: normal ENT inspection, moist mucous membranes Neck Exam: normal inspection, non-tender, supple, full range of motion Respiratory Exam: normal breath sounds, lungs clear, No respiratory distress Cardiovascular Exam: regular rate/rhythm, normal heart sounds Gastrointestinal/Abdomen Exam: soft, No tenderness, No mass Back Exam: normal inspection, No CVA tenderness, No vertebral tenderness Extremity Exam: normal inspection, normal range of motion Neurologic Exam: alert, oriented x 3, cooperative, normal mood/affect, sensation nml, No motor deficits Skin Exam: normal color, warm, dry SpO2 Interpretation: normal SpO2: 96 O2 Delivery: Room Air - Course EKG Interpreted by Me: Sinus Tach, Left Silas Deviation, NORMAL INTERVALS - Radiology Exams Chest X-ray Interpretation: Interpreted by me (Blunting of right costophrenic angle. Pleural effusion. 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 Care 07/23/19 21:35 Completed Code Status Order ROUTINE Care 07/24/19 02:53 Active EKG-ER Only STAT Care 07/23/19 21:35 Completed IV Care Q6H Care 07/24/19 02:53 Active IV Insertion STAT Care 07/23/19 21:35 Completed Neuro Checks Q4H Care 07/24/19 02:[address] in Observation ROUTINE Care 07/24/19 02:53 Active Pulse Oximetry (ED) STAT Care 07/23/19 21:35 Completed 2000 Calorie ADA Diet 07/24/19 Breakfast Active CHEST 1 VIEW (PORTABLE) Stat Exams 07/23/19 21:35 Taken CBC W DIFF AM.LAB Lab 07/24/19 04:05 Completed CBC W DIFF Stat Lab 07/23/19 21:10 Completed CMP AM.LAB Lab 07/24/19 04:05 Received CMP Stat Lab 07/23/19 21:10 Completed D-DIMER QUANTITATIVE Stat Lab 07/23/19 21:10 Completed PROTIME WITH INR Stat Lab 07/23/19 21:10 Completed TROPONIN AM.LAB Lab 07/24/19 04:05 Received TROPONIN Q3H Lab 07/23/19 21:10 Completed TROPONIN Q3H Lab 07/24/19 00:45 Completed TROPONIN Q3H Lab 07/24/19 06:57 Received TROPONIN Q3H Lab 07/24/19 09:45 Ordered Urine Triage Profile Stat Lab 07/23/19 21:50 Completed Pulse Oximetry CONTINUOUS RT 07/24/19 02:53 Active Medication Summary Generic Name Dose Route Start Last Admin Trade Name Dana PRN Reason Stop Dose Admin Heparin Sodium (Beef Lung) 500 units 07/24/19 04:17 07/24/19 04:24 Heparin Lock Flush 100 Units/Ml 5ml Syringe PORT FLUSH 08/23/19 04:16 500 units PRN PRN Administration IV PORT FLUSH Insulin Aspart 0 unit 07/24/19 03:00 Novolog Insulin SQ 08/23/19 02:59 UD PRN HYPERGLYCEMIA Insulin Human NPH 70 unit 07/24/19 18:00 07/24/19 00:56 Novolin N SQ 08/23/19 17:59 70 unit PMINSULIN ERIC Administration Sodium Chloride 10 ml 07/24/19 04:15 07/24/19 04:23 Sodium Chloride 0.9% 10 Ml Flush Syringe PORT FLUSH 08/23/19 04:14 10 ml PRN PRN Administration portacath flush Discontinued Medications Generic Name Dose Route Start Last Admin Trade Name Dana PRN Reason Stop Dose Admin Aspirin 324 mg 07/24/19 01:50 07/24/19 01:55 Baby Aspirin 81 Mg Chew PO 07/24/19 01:51 324 mg STAT ONE Administration Insulin Human NPH Confirm 07/24/19 00:36 Novolin N Administered 07/24/19 00:37 Dose 70 unit .ROUTE .Onovative Lab/Rad Data: Laboratory Result Diagrams 07/23/19 21:10 07/23/19 21:10 Laboratory Results 0207/23/19 07/23/19 Range/Units 00:45 21:50 21:10 WBC (4.0-10.5) K/mm3 RBC (4.1-5.4) M/mm3 Hgb (12.0-16.0) gm/dl Hct (35-47) % MCV (78-100) fl MCH (26-32) pg MCHC (32-36) g/dl RDW (11.5-14.0) % Plt Count (150-450) K/mm3 MPV (7.5-11.0) fl Gran % (36.0-66.0) % Eos # (Auto) (0-0.5) Absolute Lymphs (auto) (1.0-4.6) Absolute Monos (auto) (0.0-1.3) Lymphocytes % (24.0-44.0) % Monocytes % (0.0-12.0) % Eosinophils % (0.00-5.0) % Basophils % (0.0-0.4) % Absolute Granulocytes (1.4-6.9) Basophils # (0-0.4) PT (9.95-12.35) SECONDS INR (0.8-3.0) D-Dimer (215-500) ng/mL Sodium (137-145) mmol/L Potassium (3.5-5.1) mmol/L Chloride (98-107) mmol/L Carbon Dioxide (22-30) mmol/L Anion Gap (5-15) MEQ/L BUN (7-17) mg/dL Creatinine (0.52-1.04) mg/dL Estimated GFR ML/MIN Glucose (74-106) mg/dL Calcium (8.4-10.2) mg/dL Total Bilirubin (0.2-1.3) mg/dL AST (14-36) U/L ALT (0-35) U/L Alkaline Phosphatase (38-126) U/L Troponin I < 0.012 < 0.012 (0.000-0.034) ng/mL Serum Total Protein (6.3-8.2) g/dL Albumin (3.5-5.0) g/dL Urine Opiates Level NEGATIVE (NEGATIVE) Ur Methadone NEGATIVE (NEGATIVE) Urine Barbiturates NEGATIVE (NEGATIVE) Ur Phencyclidine (PCP) NEGATIVE (NEGATIVE) Urine Amphetamine NEGATIVE (NEGATIVE) U Benzodiazepine Level NEGATIVE (NEGATIVE) Urine Cocaine NEGATIVE (NEGATIVE) Urine Marijuana (THC) NEGATIVE (NEGATIVE) 07/23/19 07/23/19 07/23/19 Range/Units 21:10 21:10 21:10 WBC 6.4 (4.0-10.5) K/mm3 RBC 4.48 (4.1-5.4) M/mm3 Hgb 13.4 (12.0-16.0) gm/dl Hct 41.9 (35-47) % MCV 93.5 (78-100) fl MCH 29.9 (26-32) pg MCHC 32.0 (32-36) g/dl RDW 14.0 (11.5-14.0) % Plt Count 179 (150-450) K/mm3 MPV 12.1 H (7.5-11.0) fl Gran % 80.2 H (36.0-66.0) % Eos # (Auto) 0.01 (0-0.5) Absolute Lymphs (auto) 1.17 (1.0-4.6) Absolute Monos (auto) 0.07 (0.0-1.3) Lymphocytes % 18.3 L (24.0-44.0) % Monocytes % 1.1 (0.0-12.0) % Eosinophils % 0.2 (0.00-5.0) % Basophils % 0.2 (0.0-0.4) % Absolute Granulocytes 5.12 (1.4-6.9) Basophils # 0.01 (0-0.4) PT 11.8 (9.95-12.35) SECONDS INR 1.04 (0.8-3.0) D-Dimer 309 (215-500) ng/mL Sodium 135 L (137-145) mmol/L Potassium 4.7 (3.5-5.1) mmol/L Chloride 100 (98-107) mmol/L Carbon Dioxide 24 (22-30) mmol/L Anion Gap 14.9 (5-15) MEQ/L BUN 21 H (7-17) mg/dL Creatinine 0.84 (0.52-1.04) mg/dL Estimated GFR > 60.0 ML/MIN Glucose 485 H (74-106) mg/dL Calcium 9.7 (8.4-10.2) mg/dL Total Bilirubin 0.70 (0.2-1.3) mg/dL AST 27 (14-36) U/L ALT 27 (0-35) U/L Alkaline Phosphatase 72 (38-126) U/L Troponin I (0.000-0.034) ng/mL Serum Total Protein 8.0 (6.3-8.2) g/dL Albumin 4.6 (3.5-5.0) g/dL Urine Opiates Level (NEGATIVE) Ur Methadone (NEGATIVE) Urine Barbiturates (NEGATIVE) Ur Phencyclidine (PCP) (NEGATIVE) Urine Amphetamine (NEGATIVE) U Benzodiazepine Level (NEGATIVE) Urine Cocaine (NEGATIVE) Urine Marijuana (THC) (NEGATIVE) - Progress Progress: improved Air Movement: good Progress Note: 07/24/19 01:48 Patient reassessed. Patient feels much better. No chest pain. Troponin negative. EKG negative for STEMI. Patient continues to feel somewhat weak. Patient has hyperglycemia. No anion gap acidosis. Patient due for Novolin 70 units. Novolin administered per patient request. Case discussed with Dr. Simmons who accepts admission to observation. Plan of care discussed with patient. Patient agrees admission to [facility] for further evaluation and treatment. Blood Culture(s) Obtained: No Antibiotics given: No Discussed with : Lien Will see patient in: hospital (observation) Counseled pt/family regarding: lab results, diagnosis, rad results - Departure Departure Disposition: Home, In-patient Admission Clinical Impression: Hyperglycemia, Chest pain, Generalized weakness Condition: Stable Critical Care Time: No
[2019-07-23 22:22] LABS: INR 1.04 (0.8-3.0); PROTIME 11.8 SECONDS (9.95-12.35)
[2019-07-23 22:26] LABS: ALBUMIN 4.6 g/dL (3.5-5.0); ALKALINE PHOSPHATASE 72 U/L (38-126); ANION GAP 14.9 MEQ/L (5-15); BLOOD UREA NITROGEN 21 mg/dL (7-17); CHLORIDE 100 mmol/L (98-107); Calcium 9.7 mg/dL (8.4-10.2); Carbon Dioxide 24 mmol/L (22-30); Creatinine 1 0.84 mg/dL (0.52-1.04); Glucose 485 mg/dL (74-106); Potassium 4.7 mmol/L (3.5-5.1); SGOT/AST 27 U/L (14-36); SODIUM 135 mmol/L (137-145)
[2019-07-23 22:32] LABS: SGPT/ALT 27 U/L (0-35)
[2019-07-23 23:06] LABS: Amphetamine,Urine NEGATIVE (NEGATIVE); Barbiturate,Urine NEGATIVE (NEGATIVE); Benzodiazepine,Urine NEGATIVE (NEGATIVE); Cocaine,Urine NEGATIVE (NEGATIVE); Methadone,Urine NEGATIVE (NEGATIVE); Opiate,Urine NEGATIVE (NEGATIVE); PCP,Urine NEGATIVE (NEGATIVE); THC,Urine NEGATIVE (NEGATIVE)
[2019-07-23 23:15] LABS: Absolute Neutrophil Ct (ANC) 5.12 (1.4-6.9); BASOPHIL % 0.2 % (0.0-0.4); Basophil (Absolute #) 0.01 (0-0.4); Eosinophil % 0.2 % (0.00-5.0); Eosinophil (Absolute #) 0.01 (0-0.5); Hematocrit 41.9 % (35-47); Hemoglobin 13.4 gm/dl (12.0-16.0); Lymphocyte (Absolute #) 1.17 (1.0-4.6); Lymphocytes % 18.3 % (24.0-44.0); Mean Cell Volume 93.5 fl (78-100); Mean Corpuscular Hemoglobin 29.9 pg (26-32); Mean Platelet Volume 12.1 fl (7.5-11.0); Monocyte (Absolute #) 0.07 (0.0-1.3); Monocytes % 1.1 % (0.0-12.0); Neutrophil % 80.2 % (36.0-66.0); Platelet Count 179 K/mm3 (150-450); Red Blood Count 4.48 M/mm3 (4.1-5.4); White Blood Count 6.4 K/mm3 (4.0-10.5)
[2019-07-24] MEDS ORDERED: Novolin N ONE (00:36)
[2019-07-24] MEDS: Novolin N SQ SCH ×3 (00:40→21:22)
[2019-07-24] MEDS ORDERED: BABY ASPIRIN 81 MG CHEW PO ONE (01:50)
[2019-07-24] MEDS ORDERED: NovoLOG Insulin SQ PRN (03:00)
[2019-07-24 04:09] LABS: Absolute Neutrophil Ct (ANC) 8.49 (1.4-6.9); BASOPHIL % 0.1 % (0.0-0.4); Basophil (Absolute #) 0.01 (0-0.4); Eosinophil % 0.1 % (0.00-5.0); Eosinophil (Absolute #) 0.01 (0-0.5); Hematocrit 39.7 % (35-47); Hemoglobin 12.9 gm/dl (12.0-16.0); Lymphocyte (Absolute #) 1.69 (1.0-4.6); Lymphocytes % 15.8 % (24.0-44.0); Mean Cell Volume 92.3 fl (78-100); Mean Corpuscular Hgb Concent. 32.5 g/dl (32-36); Mean Platelet Volume 10.9 fl (7.5-11.0); Monocyte (Absolute #) 0.48 (0.0-1.3); Monocytes % 4.5 % (0.0-12.0); Neutrophil % 79.5 % (36.0-66.0); Platelet Count 185 K/mm3 (150-450); White Blood Count 10.7 K/mm3 (4.0-10.5)
[2019-07-24] MEDS: Sodium Chloride 0.9% 10 ML FLUSH Syringe PORT FLUSH PRN ×2 (04:23→06:59)
[2019-07-24 08:21] LABS: ALBUMIN 4.3 g/dL (3.5-5.0); ALKALINE PHOSPHATASE 62 U/L (38-126); ANION GAP 14.8 MEQ/L (5-15); BLOOD UREA NITROGEN 22 mg/dL (7-17); CHLORIDE 101 mmol/L (98-107); Calcium 9.6 mg/dL (8.4-10.2); Carbon Dioxide 24 mmol/L (22-30); Creatinine 1 0.78 mg/dL (0.52-1.04); Glucose 314 mg/dL (74-106); Potassium 4.6 mmol/L (3.5-5.1); SGOT/AST 26 U/L (14-36); SGPT/ALT 22 U/L (0-35); SODIUM 136 mmol/L (137-145); TROPONIN < 0.012 ng/mL (0.000-0.034); Total Protein 7.6 g/dL (6.3-8.2)
--- NOTE | 2019-07-24 08:59 | XRAY ---
Indication: Chest pain. Comparison: June 30, 2018. Portable chest again demonstrates right lung volume loss with right costophrenic angle blunting, chronic lung markings, and right Port-A-Cath. No focal infiltrate, consolidation, or large effusion. Heart is not enlarged. Bony thorax intact again with mild osteopenia and degenerative changes. Impression: Nonacute chest with chronic features.
[2019-07-24] MEDS ORDERED: TYLENOL 325 MG PO PRN (11:08)
[2019-07-24] MEDS ORDERED: VITAMIN D2 PO SCH (11:15)
[2019-07-24] MEDS ORDERED: Nitrostat 0.4 MG Tablet SL PRN (11:15)
[2019-07-24] MEDS ORDERED: MEDICATION INTERVENTION PO SCH ×2 (11:30)
[2019-07-24] MEDS ORDERED: NovoLOG Insulin SQ SCH (12:00)
[2019-07-24] MEDS: ECOTRIN 81 MG PO SCH (13:08)
[2019-07-24] MEDS: PLAVIX 75 MG Tablet PO SCH (13:08)
[2019-07-24] MEDS: Imdur 60MG PO SCH (13:08)
[2019-07-24] MEDS: Colace 100 MG PO SCH (13:08)
[2019-07-24] MEDS: AMARYL 4 MG PO SCH ×3 (13:08→21:19)
[2019-07-24] MEDS: Zestril 5 MG PO SCH (13:09)
[2019-07-24] MEDS: FEOSOL 325 MG PO SCH ×2 (13:09→21:15)
[2019-07-24] MEDS: Coreg 3.125 MG PO SCH ×2 (13:09→21:15)
[2019-07-24] MEDS: Protonix 40MG Tablet PO SCH (13:09)
[2019-07-24] MEDS: Glucophage 500 MG PO SCH ×3 (13:10→21:18)
[2019-07-24] MEDS ORDERED: INSULIN ASPART 30 UNIT SQ SCH (15:00)
[2019-07-24] MEDS ORDERED: HUMALOG SQ PRN (16:45)
[2019-07-24] MEDS ORDERED: Novolin N SQ SCH (17:00)
[2019-07-24] MEDS: HUMALOG SQ SCH (18:00)
--- NOTE | 2019-07-24 19:26 | PCM.HP ---
History of Present Illness - Chief Complaint Chief Complaint: Hyperglycemia History of Present Illness: is a 68 year old female with IDDM2 with hyperglycemia after IM steroid injection for COPD at PCP Dr Bain day prior to admit.Patient also c /o chest pain more frequent and at rest . She has CAD ,stent placed 05/14/19 . Hand Ii Blocker is Dr Tyson .Patient has had RLL resection 2011 for lung cancer and right breat lumpectomy for breast cancer 2009. - Review of Systems Constitutional: Chills, Fatigue, Lethargy Eyes: No Symptoms Ears, Nose, & Throat: No Symptoms Respiratory: Cough (better after Steroid injection at PCP), Short Of Breath Cardiac: Chest Pain (at rest and with exertion) Abdominal/Gastrointestinal: Other (GERD) Genitourinary Symptoms: Dysuria Musculoskeletal: Arthralgias Skin: No Symptoms Neurological: Headache (behind her eyes) Psychological: No Symptoms Endocrine: Cold Intolerance, Other (IDDM 2 states sugars are 200 and hard to control) Hematologic/Lymphatic: No Symptoms Immunological/Allergic: No Symptoms Medications & Allergies Home Medications: Home Medication List Aspirin [Baby Aspirin] 81 mg PO DAILY 03/20/13 [History Confirmed 07/24/19] Fluoxetine HCl 40 mg PO HS 03/20/13 [History Confirmed 07/24/19] Isosorbide Mononitrate 30 mg [Imdur 30 MG] 60 mg PO DAILY 03/20/13 [ History Confirmed 07/24/19] Lisinopril 5 mg [Zestril 5 MG] 2.5 mg PO DAILY 03/20/13 [History Confirmed 07/24/19] Omeprazole 20 MG [Prilosec 20 mg] 20 mg PO DAILY 03/20/13 [History Confirmed ] Acetaminophen 325 mg [Tylenol 325 mg] 650 mg PO Q4H PRN PRN 11/22/17 [ History Confirmed 07/24/19] Docusate Sodium 100 mg PO DAILY 11/22/17 [History Confirmed 07/24/19] Famotidine 20 mg [Pepcid 20 MG] 20 mg PO HS 11/22/17 [History Confirmed ] Ferrous Sulfate 325 mg PO BID 11/22/17 [History Confirmed 07/24/19] Glimepiride 4 mg [Amaryl 4 mg] 4 mg PO BID 11/22/17 [History Confirmed ] Insulin Aspart [Novolog Flexpen] 30 unit SQ TID 11/22/17 [History Confirmed ] Insulin NPH Human Recom [Novolin N] 60 unit SQ BID 11/22/17 [History Confirmed 07/24/19] Metformin HCl 250 mg PO BID 11/22/17 [History Confirmed 07/24/19] Nitroglycerin 0.4 mg Tablet [Nitrostat 0.4 MG Tablet] 0.4 mg SL UD [History Confirmed 07/24/19] Ranolazine 500 MG [Ranexa 500 MG] 500 mg PO BID 11/22/17 [History Confirmed 07/25/19] Atorvastatin Calcium [Lipitor] 40 mg PO DAILY 07/24/19 [History Confirmed ] Carvedilol 3.125 mg [Coreg 3.125 MG] 3.125 mg PO BID 07/24/19 [History Confirmed 07/24/19] Clopidogrel Bisulfate [Clopidogrel] 1 tab PO DAILY 07/24/19 [History Confirmed 07/24/19] Ergocalciferol (Vitamin D2) [Vitamin D2] 1 cap PO UD 07/24/19 [History Confirmed 07/24/19] Nabumetone [Relafen] 500 mg PO BID 07/24/19 [History Confirmed 07/24/19] Allergies/Adverse Reactions: Allergies Allergy/AdvReac Type Severity Reaction Status Date / Time hydromorphone [From Dilaudid] Allergy Severe Verified 07/23/19 21:27 morphine Allergy Severe Verified 07/24/19 01:46 acetaminophen Allergy "SHUTS Verified 07/23/19 21:27 [From Darvocet-N 100] DOWN MY SYSTEM" amoxicillin [From Augmentin] Allergy Verified 07/23/19 21:27 clavulanic acid Allergy Verified 07/23/19 21:27 [From Augmentin] codeine Allergy "SHUTS MY Verified 07/23/19 21:27 SYSTEMS DOWN" nalbuphine HCl [From Nubain] Allergy "SHUTS MY Verified 07/23/19 21:27 SYSTEM DOWN" propoxyphene napsylate Allergy "SHUTS Verified 07/23/19 21:27 [From Darvocet-N 100] DOWN MY SYSTEM" gabapentin [From Neurontin] AdvReac Verified 07/24/19 03:51 smz-tmp ds Allergy Uncoded 07/23/19 21:27 surgerical tape AdvReac Uncoded 07/23/19 21:27 - Past Medical History Past Medical History: Yes Neurological History: No Pertinent History ENT History: No Pertinent History Cardiac History: Coronary Artery Disease, High Cholesterol, Hypertension Respiratory History: COPD, Sleep Apnea Endocrine Medical History: Diabetes Type II, Hypothyroidism Musculoskelatal History: Arthritis, Fibromyalgia GI Medical History: Diverticulitis, Hernia History: Other Pyscho-Social History: No Pertinent History Reproductive Disorders: Breast Cancer Comment: BACK SURGERY LAMINECTOMY L4-L5 1987. BILATERAL CARPAL TUNNEL SURGERY. THORACIC OUTLET SURGERY. PARTIAL COLECTOMY DUE TO DIVERTICULITIS - Past Surgical History Past Surgical History: Yes Neuro Surgical History: No Pertinent History Cardiac History: No Pertinent History, Cardiac Stent Respiratory Surgery: Lobectomy GI Surgical History: Appendectomy, Cholecystectomy, Colon Resection, Hernia Repair Genitourinary Surgical Hx: No Pertinent History Musculskeletal Surgical Hx: Other Female Surgical History: Hysterectomy, Other Other Surgical History: Right lower lobe lung removed, partial right mastectomy. carpal tunnel. EGD. Colonoscopy. - Social History Smoking Status: Former smoker Exposure to second hand smoke: No Alcohol: None Drug Use: none - Physical Exam Vital Signs: Vital Signs - 24 hr Temp Pulse Pulse Resp BP Pulse Ox 07/24/19 16:00 97.9 F 62 18 120/64 95 07/24/19 11:27 98.2 F 70 18 139/71 98 07/24/19 07:42 94 L 07/24/19 07:27 98.2 F 81 18 135/71 98 07/24/19 07:00 96 07/24/19 05:20 87 22 93 L 07/24/19 05:10 98 07/24/19 04:42 97.6 F 87 20 134/63 95 07/24/19 03:11 97.6 F 87 20 134/63 95 07/24/19 02:30 94 H 18 131/65 97 07/24/19 02:09 87 18 131/65 95 07/24/19 01:12 88 18 108/60 94 L 07/24/19 00:04 88 24 105/57 95 07/23/19 23:21 92 H 20 138/53 95 07/23/19 22:28 97.9 F 90 20 146/69 94 L 07/23/19 21:44 96 07/23/19 21:04 97.3 F 90 90 20 162/92 96 General Appearance: no apparent distress Neurologic Exam: alert, oriented x 3, cooperative, machine whitener II-XII nml as tested, normal mood/affect, nml station & gait Eye Exam: PERRL/EOMI Ears, Nose, Throat Exam: normal ENT inspection Neck Exam: normal inspection Respiratory Exam: diminished breath sounds (bases), rhonchi, wheezing (right mid ) Cardiovascular Exam: regular rate/rhythm Gastrointestinal/Abdomen Exam: soft, normal bowel sounds, tenderness (epigastrum ,mild-no guarding no rebound no CVA tenderness) Pelvic Exam: not done Rectal Exam: deferred Back Exam: normal inspection Extremity Exam: other (trace ankle edema no calf tenderness) Skin Exam: warm, dry, other (dusky color) Results - Labs Lab/Micro Results: Accuchecks Accucheck Value: 226 Accucheck Value: 228 Accucheck Value: 323 Lab Results-Last 24 Hours 07/23/19 07/23/19 07/23/19 Range/Units 21:10 21:10 21:10 WBC 6.4 (4.0-10.5) K/mm3 RBC 4.48 (4.1-5.4) M/mm3 Hgb 13.4 (12.0-16.0) gm/dl Hct 41.9 (35-47) % MCV 93.5 (78-100) fl MCH 29.9 (26-32) pg MCHC 32.0 (32-36) g/dl RDW 14.0 (11.5-14.0) % Plt Count 179 (150-450) K/mm3 MPV 12.1 H (7.5-11.0) fl Gran % 80.2 H (36.0-66.0) % Eos # (Auto) 0.01 (0-0.5) Absolute Lymphs (auto) 1.17 (1.0-4.6) Absolute Monos (auto) 0.07 (0.0-1.3) Lymphocytes % 18.3 L (24.0-44.0) % Monocytes % 1.1 (0.0-12.0) % Eosinophils % 0.2 (0.00-5.0) % Basophils % 0.2 (0.0-0.4) % Absolute Granulocytes 5.12 (1.4-6.9) Basophils # 0.01 (0-0.4) PT 11.8 (9.95-12.35) SECONDS INR 1.04 (0.8-3.0) D-Dimer 309 (215-500) ng/mL Sodium 135 L (137-145) mmol/L Potassium 4.7 (3.5-5.1) mmol/L Chloride 100 (98-107) mmol/L Carbon Dioxide 24 (22-30) mmol/L Anion Gap 14.9 (5-15) MEQ/L BUN 21 H (7-17) mg/dL Creatinine 0.84 (0.52-1.04) mg/dL Estimated GFR > 60.0 ML/MIN Glucose 485 H (74-106) mg/dL Hemoglobin A1c (4.5-6.0) % Calcium 9.7 (8.4-10.2) mg/dL Total Bilirubin 0.70 (0.2-1.3) mg/dL AST 27 (14-36) U/L ALT 27 (0-35) U/L Alkaline Phosphatase 72 (38-126) U/L Troponin I (0.000-0.034) ng/mL Serum Total Protein 8.0 (6.3-8.2) g/dL Albumin 4.6 (3.5-5.0) g/dL Urine Opiates Level (NEGATIVE) Ur Methadone (NEGATIVE) Urine Barbiturates (NEGATIVE) Ur Phencyclidine (PCP) (NEGATIVE) Urine Amphetamine (NEGATIVE) U Benzodiazepine Level (NEGATIVE) Urine Cocaine (NEGATIVE) Urine Marijuana (THC) (NEGATIVE) 07/23/19 07/23/19 07/24/19 Range/Units 21:10 21:50 00:45 WBC (4.0-10.5) K/mm3 RBC (4.1-5.4) M/mm3 Hgb (12.0-16.0) gm/dl Hct (35-47) % MCV (78-100) fl MCH (26-32) pg MCHC (32-36) g/dl RDW (11.5-14.0) % Plt Count (150-450) K/mm3 MPV (7.5-11.0) fl Gran % (36.0-66.0) % Eos # (Auto) (0-0.5) Absolute Lymphs (auto) (1.0-4.6) Absolute Monos (auto) (0.0-1.3) Lymphocytes % (24.0-44.0) % Monocytes % (0.0-12.0) % Eosinophils % (0.00-5.0) % Basophils % (0.0-0.4) % Absolute Granulocytes (1.4-6.9) Basophils # (0-0.4) PT (9.95-12.35) SECONDS INR (0.8-3.0) D-Dimer (215-500) ng/mL Sodium (137-145) mmol/L Potassium (3.5-5.1) mmol/L Chloride (98-107) mmol/L Carbon Dioxide (22-30) mmol/L Anion Gap (5-15) MEQ/L BUN (7-17) mg/dL Creatinine (0.52-1.04) mg/dL Estimated GFR ML/MIN Glucose (74-106) mg/dL Hemoglobin A1c (4.5-6.0) % Calcium (8.4-10.2) mg/dL Total Bilirubin (0.2-1.3) mg/dL AST (14-36) U/L ALT (0-35) U/L Alkaline Phosphatase (38-126) U/L Troponin I < 0.012 < 0.012 (0.000-0.034) ng/mL Serum Total Protein (6.3-8.2) g/dL Albumin (3.5-5.0) g/dL Urine Opiates Level NEGATIVE (NEGATIVE) Ur Methadone NEGATIVE (NEGATIVE) Urine Barbiturates NEGATIVE (NEGATIVE) Ur Phencyclidine (PCP) NEGATIVE (NEGATIVE) Urine Amphetamine NEGATIVE (NEGATIVE) U Benzodiazepine Level NEGATIVE (NEGATIVE) Urine Cocaine NEGATIVE (NEGATIVE) Urine Marijuana (THC) NEGATIVE (NEGATIVE) 07/24/19 07/24/19 07/24/19 Range/Units 04:05 04:05 06:45 WBC 10.7 H (4.0-10.5) K/mm3 RBC 4.30 (4.1-5.4) M/mm3 Hgb 12.9 (12.0-16.0) gm/dl Hct 39.7 (35-47) % MCV 92.3 (78-100) fl MCH 30.0 (26-32) pg MCHC 32.5 (32-36) g/dl RDW 14.0 (11.5-14.0) % Plt Count 185 (150-450) K/mm3 MPV 10.9 (7.5-11.0) fl Gran % 79.5 H (36.0-66.0) % Eos # (Auto) 0.01 (0-0.5) Absolute Lymphs (auto) 1.69 (1.0-4.6) Absolute Monos (auto) 0.48 (0.0-1.3) Lymphocytes % 15.8 L (24.0-44.0) % Monocytes % 4.5 (0.0-12.0) % Eosinophils % 0.1 (0.00-5.0) % Basophils % 0.1 (0.0-0.4) % Absolute Granulocytes 8.49 H (1.4-6.9) Basophils # 0.01 (0-0.4) PT (9.95-12.35) SECONDS INR (0.8-3.0) D-Dimer (215-500) ng/mL Sodium 136 L (137-145) mmol/L Potassium 4.6 (3.5-5.1) mmol/L Chloride 101 (98-107) mmol/L Carbon Dioxide 24 (22-30) mmol/L Anion Gap 14.8 (5-15) MEQ/L BUN 22 H (7-17) mg/dL Creatinine 0.78 (0.52-1.04) mg/dL Estimated GFR > 60.0 ML/MIN Glucose 314 H (74-106) mg/dL Hemoglobin A1c 8.69 H (4.5-6.0) % Calcium 9.6 (8.4-10.2) mg/dL Total Bilirubin 0.70 (0.2-1.3) mg/dL AST 26 (14-36) U/L ALT 22 (0-35) U/L Alkaline Phosphatase 62 (38-126) U/L Troponin I < 0.012 (0.000-0.034) ng/mL Serum Total Protein 7.6 (6.3-8.2) g/dL Albumin 4.3 (3.5-5.0) g/dL Urine Opiates Level (NEGATIVE) Ur Methadone (NEGATIVE) Urine Barbiturates (NEGATIVE) Ur Phencyclidine (PCP) (NEGATIVE) Urine Amphetamine (NEGATIVE) U Benzodiazepine Level (NEGATIVE) Urine Cocaine (NEGATIVE) Urine Marijuana (THC) (NEGATIVE) 07/24/19 07/24/19 Range/Units 06:57 09:40 WBC (4.0-10.5) K/mm3 RBC (4.1-5.4) M/mm3 Hgb (12.0-16.0) gm/dl Hct (35-47) % MCV (78-100) fl MCH (26-32) pg MCHC (32-36) g/dl RDW (11.5-14.0) % Plt Count (150-450) K/mm3 MPV (7.5-11.0) fl Gran % (36.0-66.0) % Eos # (Auto) (0-0.5) Absolute Lymphs (auto) (1.0-4.6) Absolute Monos (auto) (0.0-1.3) Lymphocytes % (24.0-44.0) % Monocytes % (0.0-12.0) % Eosinophils % (0.00-5.0) % Basophils % (0.0-0.4) % Absolute Granulocytes (1.4-6.9) Basophils # (0-0.4) PT (9.95-12.35) SECONDS INR (0.8-3.0) D-Dimer (215-500) ng/mL Sodium (137-145) mmol/L Potassium (3.5-5.1) mmol/L Chloride (98-107) mmol/L Carbon Dioxide (22-30) mmol/L Anion Gap (5-15) MEQ/L BUN (7-17) mg/dL Creatinine (0.52-1.04) mg/dL Estimated GFR ML/MIN Glucose (74-106) mg/dL Hemoglobin A1c (4.5-6.0) % Calcium (8.4-10.2) mg/dL Total Bilirubin (0.2-1.3) mg/dL AST (14-36) U/L ALT (0-35) U/L Alkaline Phosphatase (38-126) U/L Troponin I < 0.012 < 0.012 (0.000-0.034) ng/mL Serum Total Protein (6.3-8.2) g/dL Albumin (3.5-5.0) g/dL Urine Opiates Level (NEGATIVE) Ur Methadone (NEGATIVE) Urine Barbiturates (NEGATIVE) Ur Phencyclidine (PCP) (NEGATIVE) Urine Amphetamine (NEGATIVE) U Benzodiazepine Level (NEGATIVE) Urine Cocaine (NEGATIVE) Urine Marijuana (THC) (NEGATIVE) Accuchecks Accucheck Value: 226 Accucheck Value: 228 Accucheck Value: 323 - Radiology Impressions Radiology Exams & Impressions: Radiology Procedures Category Date Time Status CHEST 1 VIEW (PORTABLE) Stat Exams 07/23/19 21:35 Completed - Other Procedures and Tests Respiratory Therapy 07/24/19 05:20 Oxygen Nasal Cannula 2 lpm Respiratory Therapy Assessment DAILY Assessment/Plan (1) Chest pain Current Visit: Yes Status: Acute Qualifiers: Ischemic chest pain type: unstable angina pectoris Assessment & Plan: negative Troponin series,no pain today but pain at rest in the past week Code(s): R07.9 - CHEST PAIN, UNSPECIFIED (2) Acute bronchitis Current Visit: Yes Status: Acute Assessment & Plan: WBC mildly elevated and sinus drainage and chest congestion worse today. Start IV fluids and IV Zithromax. Code(s): J20.9 - ACUTE BRONCHITIS, UNSPECIFIED (3) Diabetes type 2, uncontrolled Current Visit: Yes Status: Acute Assessment & Plan: recent steroid injection contributing to hyperglycemia Code(s): E11.65 - TYPE 2 DIABETES MELLITUS WITH HYPERGLYCEMIA (4) Hx of cancer of lung Current Visit: Yes Status: Acute Assessment & Plan: S/P RLL mass resection 2011 Code(s): Z85.118 - PERSONAL HISTORY OF MALIGNANT NEOPLASM OF BRONCHUS AND LUNG (5) History of cancer of right breast Current Visit: Yes Status: Acute Assessment & Plan: lumpectomy right breast 2009 Code(s): Z85.3 - PERSONAL HISTORY OF MALIGNANT NEOPLASM OF BREAST (6) COPD (chronic obstructive pulmonary disease) Current Visit: Yes Status: Acute (7) Sleep apnea Current Visit: Yes Status: Acute Code(s): G47.30 - SLEEP APNEA, UNSPECIFIED
[2019-07-24] MEDS ORDERED: Zithromax 500 MG/ 250 ML NaCl Premix 500 MG/250 ML IVPB IV SCH (19:30)
[2019-07-24 21:09] LABS: Appearance CLEAR (CLEAR); Bacteria MODERATE /HPF (NEGATIVE); Bilirubin NEGATIVE (NEGATIVE); Blood NEGATIVE Ery/ul (0-5); Glucose NEGATIVE (NEGATIVE); Ketones NEGATIVE (NEGATIVE); Leukocyte Esterase NEGATIVE (NEGATIVE); Mucus SLIGHT /HPF (NEGATIVE); Nitrite NEGATIVE (NEGATIVE); Protein,Urine Dip NEGATIVE (Negative); Specific Gravity 1.008 (1.005-1.025); Urobilinogen NEGATIVE mg/dL (0-1); WBC 0-2 /HPF (0-5)
[2019-07-24] MEDS ORDERED: Ranexa 500 MG PO SCH (22:00)
[2019-07-24] MEDS ORDERED: Prozac 20 MG PO SCH (22:00)
[2019-07-24] MEDS ORDERED: NON-FORMULARY ITEM (Fluoxetine Hcl [Fluoxetine Hcl] 40 MG) PO SCH (22:00)
[2019-07-24] MEDS ORDERED: NON-FORMULARY ITEM (Nabumetone [Relafen] 500 MG) PO SCH (22:00)
[2019-07-24] MEDS ORDERED: Pepcid 20 MG PO SCH (22:00)
[2019-07-25] MEDS ORDERED: Tums EX 750 MG PO PRN (01:30)
[2019-07-25] MEDS: Glucophage 500 MG PO SCH (08:42)
[2019-07-25] MEDS: AMARYL 4 MG PO SCH (08:42)
[2019-07-25] MEDS: HUMALOG SQ SCH ×3 (08:43→17:24)
[2019-07-25] MEDS: Novolin N SQ SCH (08:44)
[2019-07-25] MEDS: Coreg 3.125 MG PO SCH (09:48)
[2019-07-25] MEDS: Imdur 60MG PO SCH (09:48)
[2019-07-25] MEDS: Colace 100 MG PO SCH (09:48)
[2019-07-25] MEDS: Zestril 5 MG PO SCH (09:48)
[2019-07-25] MEDS: FEOSOL 325 MG PO SCH (09:48)
[2019-07-25] MEDS: PLAVIX 75 MG Tablet PO SCH (09:48)
[2019-07-25] MEDS: Protonix 40MG Tablet PO SCH (09:48)
[2019-07-25] MEDS: ECOTRIN 81 MG PO SCH (09:48)
[2019-07-25] MEDS ORDERED: NON-FORMULARY ITEM (Docusate Sodium 100 MG) PO SCH (10:00)
[2019-07-25] MEDS ORDERED: Ranexa 500 MG PO SCH (10:00)
[2019-07-25] MEDS ORDERED: NON-FORMULARY ITEM (Atorvastatin Calcium [Lipitor] 40 MG) PO SCH (10:00)
[2019-07-25] MEDS ORDERED: NON-FORMULARY ITEM (Omeprazole 20 Mg [Prilosec 20 Mg] 20 MG) PO SCH (10:00)
[2019-07-25 16:34] VITALS: BP 129/63; PULSE 90; O2SAT 96
--- NOTE | 2019-07-25 17:13 | PCM.NOTE ---
Date and Time: 07/25/19 1707 Subjective Assessment: Patient c/o increase in chest pain at rest. He Bead Forming Machine Set Up Operator is Dr Tyson and he will be doing a telecardiology visit soon. Objective Exam General Appearance: no apparent distress Neurologic Exam: alert, oriented x 3, cooperative Skin Exam: other (dusky color,dry no diaphoresis) Respiratory Exam: wheezing (right mid fine eew,improved from yesterday) Cardiovascular Exam: regular rate/rhythm (distant,no pitting edema) Gastrointestinal/Abdomen Exam: soft (nontender) OBJECTIVE DATA Vital Signs: Vital Signs - 24 hr Temp Pulse Resp BP Pulse Ox 07/25/19 16:00 98.3 F 90 18 129/63 96 07/25/19 11:47 98.1 F 59 L 18 111/57 99 07/25/19 09:25 91 L 07/25/19 08:00 98.4 F 59 L 18 107/52 100 07/25/19 04:00 98.0 F 52 L 19 114/54 99 07/25/19 00:00 97.9 F 60 20 130/60 98 07/24/19 20:00 98.1 F 63 19 118/57 93 L 07/24/19 19:47 98 Oxygen-Last 24 hours Oxygen Flowrate (L/min)-RT 2 Pain Assessment - Last Documented Pain Intensity 3 Pain Scale Used 0-10 Pain Scale Intake and Output: Intake & Output 07/23/19 07/24/19 07/25/19 07/26/19 11:59 11:59 11:59 11:59 Intake Total 480 2573 480 Output Total 2050 Balance 480 523 480 Weight 97.1 kg Lab Results: Accuchecks Date 07/25/19 Date 07/25/19 Date 07/24/19 Time 11:30 Time 07:30 Time 21:00 Accucheck Value: 137 Accucheck Value: 51 Accucheck Value: 168 Lab Results-Last 24 Hours 07/24/19 Range/Units 20:52 Urine Color STRAW (YELLOW) Urine Appearance CLEAR (CLEAR) Urine pH 6.0 (5-6) Ur Specific [place] 1.008 (1.005-1.025) Urine Protein NEGATIVE (Negative) Urine Ketones NEGATIVE (NEGATIVE) Urine Blood NEGATIVE (0-5) Jens/ul Urine Nitrite NEGATIVE (NEGATIVE) Urine Bilirubin NEGATIVE (NEGATIVE) Urine Urobilinogen NEGATIVE (0-1) mg/dL Ur Leukocyte Esterase NEGATIVE (NEGATIVE) Urine WBC (Auto) 0-2 (0-5) /HPF Urine RBC (Auto) NONE (0-2) /HPF U Epithel Cells (Auto) NONE (FEW) /HPF Urine Bacteria (Auto) MODERATE (NEGATIVE) /HPF Urine Mucus (Auto) SLIGHT (NEGATIVE) /HPF Urine Culture Reflexed YES (NO) Urine Glucose NEGATIVE (NEGATIVE) mg/dL Radiology Exams: Radiology Procedures Category Date Time Status CHEST 1 VIEW (PORTABLE) Stat Exams 07/23/19 21:35 Completed Assessment/Plan (1) Chest pain Current Visit: Yes Status: Acute Qualifiers: Ischemic chest pain type: unstable angina pectoris Assessment & Plan: transfer to [facility] with Dr Tyson Bead Forming Machine Set Up Operator . Code(s): R07.9 - CHEST PAIN, UNSPECIFIED (2) Acute bronchitis Current Visit: Yes Status: Acute Assessment & Plan: improved . Has received Zithromax IV one [id number] 07/24/2019. Code(s): J20.9 - ACUTE BRONCHITIS, UNSPECIFIED (3) Diabetes type 2, uncontrolled Current Visit: Yes Status: Acute Code(s): E11.65 - TYPE 2 DIABETES MELLITUS WITH HYPERGLYCEMIA (4) Hx of cancer of lung Current Visit: Yes Status: Acute Code(s): Z85.118 - PERSONAL HISTORY OF MALIGNANT NEOPLASM OF BRONCHUS AND LUNG (5) History of cancer of right breast Current Visit: Yes Status: Acute Code(s): Z85.3 - PERSONAL HISTORY OF MALIGNANT NEOPLASM OF BREAST (6) COPD (chronic obstructive pulmonary disease) Current Visit: Yes Status: Acute (7) Sleep apnea Current Visit: Yes Status: Acute Code(s): G47.30 - SLEEP APNEA, UNSPECIFIED
--- NOTE | 2019-07-25 17:40 | PCM.DS ---
Discharge Summary Date of Admission: 07/24/19 02:46 Admitting Physician: AUGUSTUS WATSON DO Consults: Consults on Case 07/25/19 08:00 Consult Tele-Health [Tele-Health Consult] ROUTINE Primary Care Provider: AUGUSTUS WATSON DO Allergies Allergies hydromorphone [From Dilaudid] Allergy (Severe, Verified 07/23/19 21:27) morphine Allergy (Severe, Verified 07/24/19 01:46) B/P issues. Becomes SOB. acetaminophen [From Darvocet-N 100] Allergy (Verified 07/23/19 21:27) "SHUTS DOWN MY SYSTEM" amoxicillin [From Augmentin] Allergy (Verified 07/23/19 21:27) clavulanic acid [From Augmentin] Allergy (Verified 07/23/19 21:27) codeine Allergy (Verified 07/23/19 21:27) "SHUTS MY SYSTEMS DOWN" nalbuphine HCl [From Nubain] Allergy (Verified 07/23/19 21:27) "SHUTS MY SYSTEM DOWN" propoxyphene napsylate [From Darvocet-N 100] Allergy (Verified 07/23/19 21:27) "SHUTS DOWN MY SYSTEM" gabapentin [From Neurontin] Adverse Reaction (Verified 07/24/19 03:51) smz-tmp ds Allergy (Uncoded 07/23/19 21:27) surgerical tape Adverse Reaction (Uncoded 07/23/19 21:27) Hospital Summary - Hospital Course Hospital Course: Patient is a 68 yr old female with IDDM2,CAD,COPD,sleep apnea,remote Hx lung cancer and breast cancer was admitted through ER with chest pain,fatigue and hyperglycemia. Dr Ernesto Romano is her PCP. Cardiologuist is Dr Tyson who placed a stent APR 2019. Patient has been very inactive for several months. Troponin levels have not been elevated this admission. WBC mildly elevated and eew right mid lung so started tx bronchitis IV Zithromax,received 1 dose. Telecardiology consult ordered due to unstable angina symptoms . Dr Tyson requested patient to be transfered to [facility] coronary ICU with plans for heart cath in AM. - Vitals & Intake/Output Vital Signs: Vital Signs Temperature 98.3 F 07/25/19 16:00 Pulse Rate 90 07/25/19 16:00 Respiratory Rate 18 02/26/20 16:00 Blood Pressure 129/63 07/25/19 16:00 O2 Sat by Pulse Oximetry 96 07/25/19 16:00 Intake & Output: Intake & Output 07/23/19 07/24/19 07/25/19 07/26/19 11:59 11:59 11:59 11:59 Intake Total 480 2573 480 Output Total 2050 Balance 480 523 480 Weight 97.1 kg - Lab Result Diagrams: 07/24/19 04:05 07/24/19 04:05 Lab Results-Last 24 Hrs: Accuchecks Date 07/25/19 Date 07/25/19 Date 07/25/19 Date 07/24/19 Time 16:30 Time 11:30 Time 07:30 Time 21:00 Accucheck Value: 94 Accucheck Value: 137 Accucheck Value: 51 Accucheck Value: 168 Lab Results-Last 24 Hours 07/24/19 Range/Units 20:52 Urine Color STRAW (YELLOW) Urine Appearance CLEAR (CLEAR) Urine pH 6.0 (5-6) Ur Specific [place] 1.008 (1.005-1.025) Urine Protein NEGATIVE (Negative) Urine Ketones NEGATIVE (NEGATIVE) Urine Blood NEGATIVE (0-5) Jens/ul Urine Nitrite NEGATIVE (NEGATIVE) Urine Bilirubin NEGATIVE (NEGATIVE) Urine Urobilinogen NEGATIVE (0-1) mg/dL Ur Leukocyte Esterase NEGATIVE (NEGATIVE) Urine WBC (Auto) 0-2 (0-5) /HPF Urine RBC (Auto) NONE (0-2) /HPF U Epithel Cells (Auto) NONE (FEW) /HPF Urine Bacteria (Auto) MODERATE (NEGATIVE) /HPF Urine Mucus (Auto) SLIGHT (NEGATIVE) /HPF Urine Culture Reflexed YES (NO) Urine Glucose NEGATIVE (NEGATIVE) mg/dL Micro Results-Entire Visit: Accuchecks Date 07/25/19 Date 07/25/19 Date 07/25/19 Date 07/24/19 Time 16:30 Time 11:30 Time 07:30 Time 21:00 Accucheck Value: 94 Accucheck Value: 137 Accucheck Value: 51 Accucheck Value: 168 - Radiology Exams Ordered Rad Exams-Entire Visit: Radiology Procedures Category Date Time Status CHEST 1 VIEW (PORTABLE) Stat Exams 07/23/19 21:35 Completed - Procedures and Test Procedures and Tests throughout Hospitalization: Therapy Orders & Screens 07/24/19 05:20 Oxygen Nasal Cannula 2 lpm Comment: Diagnosis: Hyperglycemia Respiratory Therapy Assessment DAILY Comment: Diagnosis: Hyperglycemia Discharge Exam General Appearance: no apparent distress (while resting in bed.) Neurologic Exam: alert, oriented x 3, cooperative Eye Exam: PERRL Ears, Nose, Throat Exam: normal ENT inspection Neck Exam: normal inspection Respiratory Exam: wheezing (right mid), other (no dyspnea) Gastrointestinal/Abdomen Exam: soft (nontender) Extremity Exam: other (trace ankle edema) Skin Exam: other (dusky skin color,dry) Final Diagnosis/Problem List - Final Discharge Diagnosis/Problem (1) Chest pain Current Visit: Yes Status: Acute Assessment & Plan: unstable anginia Code(s): R07.9 - CHEST PAIN, UNSPECIFIED (2) Acute bronchitis Current Visit: Yes Status: Acute Code(s): J20.9 - ACUTE BRONCHITIS, UNSPECIFIED (3) Diabetes type 2, uncontrolled Current Visit: Yes Status: Acute Code(s): E11.65 - TYPE 2 DIABETES MELLITUS WITH HYPERGLYCEMIA (4) Hx of cancer of lung Current Visit: Yes Status: Acute Code(s): Z85.118 - PERSONAL HISTORY OF MALIGNANT NEOPLASM OF BRONCHUS AND LUNG (5) History of cancer of right breast Current Visit: Yes Status: Acute Code(s): Z85.3 - PERSONAL HISTORY OF MALIGNANT NEOPLASM OF BREAST (6) COPD (chronic obstructive pulmonary disease) Current Visit: Yes Status: Acute (7) Sleep apnea Current Visit: Yes Status: Acute Code(s): G47.30 - SLEEP APNEA, UNSPECIFIED - Discharge Disposition: DC TO [facility] Condition: Fair Prescriptions: No Action Lisinopril 5 mg [Zestril 5 MG] 2.5 mg PO DAILY Omeprazole 20 MG [Prilosec 20 mg] 20 mg PO DAILY Fluoxetine HCl 40 mg PO HS Isosorbide Mononitrate 30 mg [Imdur 30 MG] 60 mg PO DAILY Aspirin [Baby Aspirin] 81 mg PO DAILY Famotidine 20 mg [Pepcid 20 MG] 20 mg PO HS Acetaminophen 325 mg [Tylenol 325 mg] 650 mg PO Q4H PRN PRN PRN Reason: pain or temp Docusate Sodium 100 mg PO DAILY Metformin HCl 250 mg PO BID Nitroglycerin 0.4 mg Tablet [Nitrostat 0.4 MG Tablet] 0.4 mg SL UD Insulin NPH Human Recom [Novolin N] 60 unit SQ BID Ranolazine 500 MG [Ranexa 500 MG] 500 mg PO BID Ferrous Sulfate 325 mg PO BID Insulin Aspart [Novolog Flexpen] 30 unit SQ TID Glimepiride 4 mg [Amaryl 4 mg] 4 mg PO BID Atorvastatin Calcium [Lipitor] 40 mg PO DAILY Carvedilol 3.125 mg [Coreg 3.125 MG] 3.125 mg PO BID Clopidogrel Bisulfate [Clopidogrel] 1 tab PO DAILY Ergocalciferol (Vitamin D2) [Vitamin D2] 1 cap PO UD Nabumetone [Relafen] 500 mg PO BID Follow up with: OPAL TYSON [CONSULTING PHYSICIAN] - 1 Week MAYANK ROMANO [ACTIVE STAFF] - 1 Week
[2019-07-25] MEDS ORDERED: Zithromax 500 MG/ 250 ML NaCl Premix 500 MG/250 ML IVPB IV SCH (20:00)
== END 2019-07-25 17:57 | disposition home or self-care (01) ==
LOC: ED 21:00 → MED SURG 07-24 02:46 → INTOOBSV 07-24 02:46
PROVIDERS: ADMIT Family Medicine; ATTEND Family Medicine
DX: R07.9 Chest pain, unspecified (principal); J20.9 Acute bronchitis, unspecified; E11.65 Type 2 diabetes mellitus with hyperglycemia; J44.9 Chronic obstructive pulmonary disease, unspecified; G47.30 Sleep apnea, unspecified; I25.10 Atherosclerotic heart disease of native coronary artery without angina pectoris; R53.83 Other fatigue; R51 Headache; I10 Essential (primary) hypertension; E78.00 Pure hypercholesterolemia, unspecified; E03.9 Hypothyroidism, unspecified; Z79.899 Other long term (current) drug therapy; Z85.118 Personal history of other malignant neoplasm of bronchus and lung; Z85.3 Personal history of malignant neoplasm of breast
CPT/HCPCS: 36000; 36415; 71045; 80053; 80307; 81001; 82962; 83036; 84484; 85025; 85379; 85610; 87086; 93005; 93041; 93268; 94760; 94762; 96372; 99284; G0378; Q3014; J0456; J1642; J1817; A9270-GY

== ENCOUNTER 2020-11-11 07:59 | Day surgery (SDC) | payer MEDICARE ==
[~2020-11-11 07:59] MED LIST: Ak-Dilate OPHTHALMIC*** 1.065 ML, Cyclogyl 1% OPHTH SOL 5 ML 1.065 ML, GATIFLOXACIN 0.5... OP ONE; BETADINE 5% OPHTHALMIC 30 ML OP ONE; Lactated Ringers 1,000 ML IV SCH; NON-FORMULARY ITEM OP ONE; TETRACAINE 0.5% STERI-UNIT SOL OP ONE; cefUROXime sodium 0.005 GM in Sodium Chloride Flush 30 ML*** 0.5 ML IJ SCH
[2020-11-11] MEDS ORDERED: Lactated Ringers 1,000 ML IV ONE (08:10)
[2020-11-11 08:36] LABS: INR 1.03 (0.8-3.0); PROTIME 12.1 SECONDS (9.4-12.5)
[2020-11-11 08:45] VITALS: O2SAT 100
[2020-11-11] MEDS ORDERED: Zofran 4 MG/2 ML VIAL IV PRN (09:00)
[2020-11-11] MEDS ORDERED: DIPRIVAN 200 MG/20 ML IV ONE (10:40)
[2020-11-11 11:33] VITALS: PULSE 59
[2020-11-11 11:37] VITALS: BP 149/73
[2020-11-11] MEDS ORDERED: Sodium Chloride 0.9% 10 ML FLUSH Syringe PORT FLUSH PRN (11:42)
[2020-11-11] MEDS ORDERED: Epinephrine Preservative Free 1 MG/ML INTRAOP ONE (14:15)
[2020-11-11] MEDS ORDERED: LIDOCAINE HCL 1% 50 MG/5 ML VL PF IJ ONE (14:15)
== END 2020-11-11 11:54 | disposition left against medical advice (07) ==
LOC: SDC 07:59
PROVIDERS: ATTEND Ophthalmology
DX: H25.811 Combined forms of age-related cataract, right eye (principal); E11.9 Type 2 diabetes mellitus without complications; I10 Essential (primary) hypertension; Z79.899 Other long term (current) drug therapy; I51.9 Heart disease, unspecified; F41.9 Anxiety disorder, unspecified; Z79.01 Long term (current) use of anticoagulants
CPT/HCPCS: 36415; 82947; 85610; 99100; C1780; J0171; J1642; J2001; J2704; A9270-GY

== ENCOUNTER 2020-12-09 18:44 | Observation (INO) | payer MEDICARE ==
[2020-12-09 19:42] LABS: Appearance CLEAR (CLEAR); Bilirubin NEGATIVE (NEGATIVE); Blood NEGATIVE Ery/ul (0-5); Glucose NEGATIVE (NEGATIVE); Ketones NEGATIVE (NEGATIVE); Leukocyte Esterase NEGATIVE (NEGATIVE); Nitrite NEGATIVE (NEGATIVE); Protein,Urine Dip NEGATIVE (Negative); Specific Gravity 1.002 (1.005-1.025); Urobilinogen NEGATIVE mg/dL (0-1)
[2020-12-09 19:45] LABS: RBC NONE SEEN /HPF (0-2)
[2020-12-09 19:46] LABS: Bacteria NONE SEEN /HPF (NEGATIVE)
[2020-12-09 20:00] LABS: ALBUMIN 4.4 g/dL (3.5-5.0); ALKALINE PHOSPHATASE 67 U/L (38-126); ANION GAP 13.9 MEQ/L (5-15); BLOOD UREA NITROGEN 11 mg/dL (7-17); CHLORIDE 102 mmol/L (98-107); Calcium 9.5 mg/dL (8.4-10.2); Carbon Dioxide 28 mmol/L (22-30); Creatinine 1 0.72 mg/dL (0.52-1.04); EST GLOMERULAR FILTRATION RATE > 60.0 ML/MIN; Glucose 88 mg/dL (74-106); NT PRO BNP 97.6 pg/mL (0-900); Potassium 4.1 mmol/L (3.5-5.1); SGOT/AST 24 U/L (14-36); SGPT/ALT 15 U/L (0-35); SODIUM 140 mmol/L (137-145); Total Protein 7.6 g/dL (6.3-8.2)
[2020-12-09] MEDS ORDERED: NITRO-BID 2% UD PACKETS TOP ONE (20:01)
[2020-12-09 20:02] LABS: Absolute Neutrophil Ct (ANC) 3.76 (1.4-6.9); BASOPHIL % 0.1 % (0.0-0.4); Basophil (Absolute #) 0.01 (0-0.4); Eosinophil % 2.6 % (0.00-5.0); Eosinophil (Absolute #) 0.18 (0-0.5); Hematocrit 34.2 % (35-47); Hemoglobin 10.1 gm/dl (12.0-16.0); Lymphocytes % 34.4 % (24.0-44.0); Mean Cell Volume 89.5 fl (78-100); Mean Corpuscular Hemoglobin 26.4 pg (26-32); Mean Corpuscular Hgb Concent. 29.5 g/dl (32-36); Mean Platelet Volume 12.2 fl (7.5-11.0); Monocyte (Absolute #) 0.63 (0.0-1.3); Neutrophil % 53.9 % (36.0-66.0); Platelet Count 206 K/mm3 (150-450); Red Blood Count 3.82 M/mm3 (4.1-5.4); Red Cell Distribution Width 15.1 % (11.5-14.0)
[2020-12-09] MEDS ORDERED: BABY ASPIRIN 81 MG CHEW PO ONE (20:02)
--- NOTE | 2020-12-09 20:03 | ERPHSYRPT ---
- History of Present Illness Time Seen by Provider: 12/09/20 18:55 Historian: patient Exam Limitations: no limitations Patient Subjective Stated Complaint: pt here for chest pain since 1800 today that radiates to jaw,she took 2 nitro with some relief, Triage Nursing Assessment: pt alert, arrived per wc, resp easy, o2 at 2 l nc per home, skin w./d/p chest clear, Physician History: Patient is a 77-year-old female presents to our emergency department with her for evaluation of chest pain heart palpitations. Symptoms started today. Patient has a history of coronary artery stents placed approximately 2 years ago. Patient's chief crew scheduler is Dr. infante. Chest pain described as an ache that is substernal tends to radiate to her neck. Patient took 2 nitroglycerin sublingual tablets prior to arrival. EKG performed shows sinus tachycardia. Patient denies nausea vomiting dizziness. No diaphoresis. No syncope. Patient voices no other complaints or concerns at this time. Timing/Duration: today Activities at Onset: none Quality: aching Location: substernal Chest Pain Radiation: neck Severity of Pain-Max: moderate Severity of Pain-Current: mild Modifying Factors: Improves With: nothing Associated Symptoms: denies symptoms Nitro Today/Relief: 0.4 mg x 2 Aspirin Treatment Today: no aspirin today Allergies/Adverse Reactions: hydromorphone [From Dilaudid] Allergy (Severe, Verified 12/09/20 13:51) acetaminophen [From Darvocet-N 100] Allergy (Verified 12/09/20 13:51) "SHUTS DOWN MY SYSTEM" amoxicillin [From Augmentin] Allergy (Verified 12/09/20 13:51) clavulanic acid [From Augmentin] Allergy (Verified 12/09/20 13:51) codeine Allergy (Verified 12/09/20 13:51) "SHUTS MY SYSTEMS DOWN" nalbuphine HCl [From Nubain] Allergy (Verified 12/09/20 13:51) "SHUTS MY SYSTEM DOWN" propoxyphene napsylate [From Darvocet-N 100] Allergy (Verified 12/09/20 13:51) "SHUTS DOWN MY SYSTEM" gabapentin [From Neurontin] Adverse Reaction (Verified 12/09/20 13:51) smz-tmp ds Allergy (Uncoded 11/11/20 08:20) surgerical tape Adverse Reaction (Uncoded 11/11/20 08:20) Home Medications: Fluoxetine HCl 20 mg PO HS 03/20/13 [History] Isosorbide Mononitrate 30 mg [Imdur 30 MG] 60 mg PO DAILY 03/20/13 [History] Lisinopril 5 mg [Zestril 5 MG] 2.5 mg PO DAILY 03/20/13 [History] Omeprazole 20 MG [Prilosec 20 mg] 20 mg PO DAILY 03/20/13 [History] Famotidine 20 mg [Pepcid 20 MG] 20 mg PO BID 11/22/17 [History] Glimepiride 4 mg [Amaryl 4 mg] 4 mg PO BID 11/22/17 [History] Metformin HCl 500 mg PO BID 11/22/17 [History] Nitroglycerin 0.4 mg Tablet [Nitrostat 0.4 MG Tablet] 0.4 mg SL UD 11/22/17 [History] Ranolazine 500 MG [Ranexa 500 MG] 500 mg PO BID 11/22/17 [History] Atorvastatin Calcium [Lipitor] 80 mg PO DAILY 07/24/19 [History] Albuterol 2.5 mg/3 ml Neb [Proventil 2.5 mg/3 ml Neb] 2.5 mg IH QID 10/29/20 [History] Aspirin 81 mg PO BID 10/29/20 [History] Calcium Acetate 667 mg PO BID 10/29/20 [History] Carvedilol 6.25 mg [Coreg 6.25 MG] 6.25 mg PO BID 10/29/20 [History] Clopidogrel Bisulfate 75 mg [PLAVIX 75 MG Tablet] 75 mg PO DAILY 10/29/20 [History] Docusate Sodium 100 mg [Colace 100 MG] 100 mg PO DAILY 10/29/20 [History] Ferrous Sulfate 325 mg [Feosol 325 mg] 325 mg PO BID 10/29/20 [History] Insulin Lispro [Humalog] 30 unit SQ TID 10/29/20 [History] Insulin NPH Human Isophane [Humulin N] 60 unit SQ BID 10/29/20 [History] Linaclotide [Linzess] 145 mcg PO BID 10/29/20 [History] Hx Tetanus, Diphtheria Vaccination/Date Given: Yes Hx Influenza Vaccination/Date Given: Yes Hx Pneumococcal Vaccination/Date Given: Yes Immunizations Up to Date: Yes Travel Risk - International Travel Have you traveled outside of the country in past 3 weeks: No - Coronavirus Screening Are you exhibiting any of the following symptoms?: No Close contact with a COVID-19 positive Pt in past 14-21 Days: No - Vaccine Status Have you recieved a Covid-19 vaccination: Yes Agents' Records Clerk: Moderna - Vaccination Dates Date of 2cond Vaccination (if applicable): jun - Review of Systems Constitutional: No Symptoms, No Fever, No Chills Eyes: No Symptoms Ears, Nose, & Throat: No Symptoms Respiratory: No Symptoms, No Cough, No Dyspnea Cardiac: No Symptoms, No Chest Pain, No Edema, No Syncope Abdominal/Gastrointestinal: No Symptoms, No Abdominal Pain, No Nausea, No Vomiting, No Diarrhea Genitourinary Symptoms: No Symptoms, No Dysuria Musculoskeletal: No Symptoms, No Back Pain, No Neck Pain Skin: No Symptoms, No Rash Neurological: No Symptoms, No Dizziness, No Focal Weakness, No Sensory Changes Psychological: No Symptoms Endocrine: No Symptoms Hematologic/Lymphatic: No Symptoms Immunological/Allergic: No Symptoms All Other Systems: Reviewed and Negative - Past Medical History Pertinent Past Medical History: Yes Neurological History: No Pertinent History ENT History: No Pertinent History Cardiac History: Coronary Artery Disease, High Cholesterol, Hypertension Respiratory History: COPD, Sleep Apnea Endocrine Medical History: Diabetes Type II, Hypothyroidism Musculoskeletal History: Arthritis, Fibromyalgia GI Medical History: Diverticulitis, Hernia History: Other Psycho-Social History: No Pertinent History Female Reproductive Disorders: Breast Cancer Other Medical History: BACK SURGERY LAMINECTOMY L4-L5 1987. BILATERAL CARPAL TUNNEL SURGERY. THORACIC OUTLET SURGERY. PARTIAL COLECTOMY DUE TO DIVERTICULITIS - Past Surgical History Past Surgical History: Yes Neuro Surgical History: No Pertinent History Cardiac: No Pertinent History, Cardiac Stent Respiratory: Lobectomy Gastrointestinal: Appendectomy, Cholecystectomy, Colon Resection, Hernia Repair Genitourinary: No Pertinent History Musculoskeletal: Other Female Surgical History: Hysterectomy, Other Other Surgical History: Right lower lobe lung removed, partial right mastectomy. carpal tunnel. EGD. Colonoscopy. - Social History Smoking Status: Former smoker Exposure to second hand smoke: No Drug Use: none Patient Lives Alone: No - Female History Hx Last Menstrual Period: post - Nursing Vital Signs Nursing Vital Signs: Initial Vital Signs Temperature 97.2 F 12/09/20 18:53 Pulse Rate 130 H 12/09/20 18:53 Respiratory Rate 24 12/09/20 18:53 Blood Pressure 154/96 12/09/20 18:53 O2 Sat by Pulse Oximetry 100 12/09/20 18:53 Pain Scale Pain Intensity 0 - Physical Exam General Appearance: no apparent distress, alert Eye Exam: PERRL/EOMI, eyes nml inspection Ears, Nose, Throat Exam: normal ENT inspection, moist mucous membranes Neck Exam: normal inspection, non-tender, supple, full range of motion Respiratory Exam: normal breath sounds, lungs clear, airway intact, No respiratory distress Cardiovascular Exam: normal heart sounds, tachycardia, capillary refill <2 sec Gastrointestinal/Abdomen Exam: soft, No tenderness, No mass Back Exam: normal inspection, No CVA tenderness, No vertebral tenderness Extremity Exam: normal inspection, normal range of motion Neurologic Exam: alert, oriented x 3, cooperative, normal mood/affect, sensation nml, No motor deficits Skin Exam: normal color, warm, dry Lymphatic Exam: No adenopathy SpO2 Interpretation: normal SpO2: 98 O2 Delivery: Room Air - Course Nursing assessment & vital signs reviewed: Yes EKG Interpreted by Me: RATE, Sinus Tach, NORMAL AXIS, NORMAL INTERVALS - Radiology Exams Chest X-ray Interpretation: Interpreted by me (Lung markings. Mild blunting right CPA. Port-A-Cath intact bony thorax normal cardiac silhouette osteopenia degenerative changes.) Ordered Tests: Active Orders 24 hr Category Date Time Status Engineering Research Manager STAT Care 12/09/20 19:05 Active EKG-ER Only STAT Care 12/09/20 19:04 Active IV Insertion STAT Care 12/09/20 19:04 Active Pulse Oximetry (ED) STAT Care 12/09/20 19:04 Active CHEST 1 VIEW (PORTABLE) Stat Exams 12/09/20 19:05 Taken CBC W DIFF Stat Lab 12/09/20 18:05 Completed CMP Stat Lab 12/09/20 18:05 Completed D-DIMER QUANTITATIVE Stat Lab 12/09/20 18:33 Completed Lactic Acid Stat Lab 12/09/20 19:04 Completed NT PRO BNP Stat Lab 12/09/20 18:05 Completed POCT GLUCOSE Stat Lab 12/10/20 00:16 Completed TROPONIN Q3H Lab 12/09/20 18:05 Completed TROPONIN Q3H Lab 12/09/20 21:58 Completed TROPONIN Q3H Lab 12/10/20 01:14 Completed TROPONIN Q3H Lab 12/10/20 04:34 Completed TROPONIN Q3H Lab 12/10/20 07:15 Ordered UA W/RFX UR CULTURE Stat Lab 12/09/20 19:17 Completed Medication Summary Discontinued Medications Generic Name Dose Route Start Last Admin Trade Name Freq PRN Reason Stop Dose Admin Aspirin 324 mg 12/09/20 20:02 12/09/20 20:28 Baby Aspirin 81 Mg Chew PO 12/09/20 20:03 324 mg STAT ONE Administration Nitroglycerin 1 gm 12/09/20 20:01 12/09/20 20:29 Nitro-Bid 2% Ud Packets TOP 12/09/20 20:02 1 gm STAT ONE Administration Nitroglycerin Confirm 12/09/20 20:29 Nitro-Bid 2% Ud Packets Administered 12/09/20 20:30 Dose 1 gm .ROUTE .[employer] ONE Lab/Rad Data: Laboratory Result Diagrams 12/09/20 18:05 12/09/20 18:05 Laboratory Results 12/10/20 12/10/20 12/10/20 Range/Units 04:34 01:14 00:16 WBC (4.0-10.5) K/mm3 RBC (4.1-5.4) M/mm3 Hgb (12.0-16.0) gm/dl Hct (35-47) % MCV (78-100) fl MCH (26-32) pg MCHC (32-36) g/dl RDW (11.5-14.0) % Plt Count (150-450) K/mm3 MPV (7.5-11.0) fl Gran % (36.0-66.0) % Eos # (Auto) (0-0.5) Absolute Lymphs (auto) (1.0-4.6) Absolute Monos (auto) (0.0-1.3) Lymphocytes % (24.0-44.0) % Monocytes % (0.0-12.0) % Eosinophils % (0.00-5.0) % Basophils % (0.0-0.4) % Absolute Granulocytes (1.4-6.9) Basophils # (0-0.4) D-Dimer (215-500) ng/mL Sodium (137-145) mmol/L Potassium (3.5-5.1) mmol/L Chloride (98-107) mmol/L Carbon Dioxide (22-30) mmol/L Anion Gap (5-15) MEQ/L BUN (7-17) mg/dL Creatinine (0.52-1.04) mg/dL Estimated GFR ML/MIN Glucose (74-106) mg/dL POC Glucometer 69 L (74 to 106) mg/dL Lactic Acid (0.4-2.0) Calcium (8.4-10.2) mg/dL Total Bilirubin (0.2-1.3) mg/dL AST (14-36) U/L ALT (0-35) U/L Alkaline Phosphatase (38-126) U/L Troponin I < 0.012 < 0.012 (0.000-0.034) ng/mL NT-Pro-B Natriuret Pep (0-900) pg/mL Serum Total Protein (6.3-8.2) g/dL Albumin (3.5-5.0) g/dL Urine Color (YELLOW) Urine Appearance (CLEAR) Urine pH (5-6) Ur Specific [place] (1.005-1.025) Urine Protein (Negative) Urine Ketones (NEGATIVE) Urine Blood (0-5) Jens/ul Urine Nitrite (NEGATIVE) Urine Bilirubin (NEGATIVE) Urine Urobilinogen (0-1) mg/dL Ur Leukocyte Esterase (NEGATIVE) Urine WBC (Auto) (0-5) /HPF Urine RBC (Auto) (0-2) /HPF U Epithel Cells (Auto) (FEW) /HPF Urine Bacteria (Auto) (NEGATIVE) /HPF Urine Culture Reflexed (NO) Urine Glucose (NEGATIVE) mg/dL 12/09/20 12/09/20 12/09/20 Range/Units 21:58 19:17 19:04 WBC (4.0-10.5) K/mm3 RBC (4.1-5.4) M/mm3 Hgb (12.0-16.0) gm/dl Hct (35-47) % MCV (78-100) fl MCH (26-32) pg MCHC (32-36) g/dl RDW (11.5-14.0) % Plt Count (150-450) K/mm3 MPV (7.5-11.0) fl Gran % (36.0-66.0) % Eos # (Auto) (0-0.5) Absolute Lymphs (auto) (1.0-4.6) Absolute Monos (auto) (0.0-1.3) Lymphocytes % (24.0-44.0) % Monocytes % (0.0-12.0) % Eosinophils % (0.00-5.0) % Basophils % (0.0-0.4) % Absolute Granulocytes (1.4-6.9) Basophils # (0-0.4) D-Dimer (215-500) ng/mL Sodium (137-145) mmol/L Potassium (3.5-5.1) mmol/L Chloride (98-107) mmol/L Carbon Dioxide (22-30) mmol/L Anion Gap (5-15) MEQ/L BUN (7-17) mg/dL Creatinine (0.52-1.04) mg/dL Estimated GFR ML/MIN Glucose (74-106) mg/dL POC Glucometer (74 to 106) mg/dL Lactic Acid 0.9 (0.4-2.0) Calcium (8.4-10.2) mg/dL Total Bilirubin (0.2-1.3) mg/dL AST (14-36) U/L ALT (0-35) U/L Alkaline Phosphatase (38-126) U/L Troponin I < 0.012 (0.000-0.034) ng/mL NT-Pro-B Natriuret Pep (0-900) pg/mL Serum Total Protein (6.3-8.2) g/dL Albumin (3.5-5.0) g/dL Urine Color COLORLESS (YELLOW) Urine Appearance CLEAR (CLEAR) Urine pH 8.0 (5-6) Ur Specific [place] 1.002 (1.005-1.025) Urine Protein NEGATIVE (Negative) Urine Ketones NEGATIVE (NEGATIVE) Urine Blood NEGATIVE (0-5) Jens/ul Urine Nitrite NEGATIVE (NEGATIVE) Urine Bilirubin NEGATIVE (NEGATIVE) Urine Urobilinogen NEGATIVE (0-1) mg/dL Ur Leukocyte Esterase NEGATIVE (NEGATIVE) Urine WBC (Auto) NONE (0-5) /HPF Urine RBC (Auto) NONE SEEN (0-2) /HPF U Epithel Cells (Auto) NONE (FEW) /HPF Urine Bacteria (Auto) NONE SEEN (NEGATIVE) /HPF Urine Culture Reflexed NO (NO) Urine Glucose NEGATIVE (NEGATIVE) mg/dL 12/09/20 12/09/20 12/09/20 Range/Units 18:33 18:05 18:05 WBC (4.0-10.5) K/mm3 RBC (4.1-5.4) M/mm3 Hgb (12.0-16.0) gm/dl Hct (35-47) % MCV (78-100) fl MCH (26-32) pg MCHC (32-36) g/dl RDW (11.5-14.0) % Plt Count (150-450) K/mm3 MPV (7.5-11.0) fl Gran % (36.0-66.0) % Eos # (Auto) (0-0.5) Absolute Lymphs (auto) (1.0-4.6) Absolute Monos (auto) (0.0-1.3) Lymphocytes % (24.0-44.0) % Monocytes % (0.0-12.0) % Eosinophils % (0.00-5.0) % Basophils % (0.0-0.4) % Absolute Granulocytes (1.4-6.9) Basophils # (0-0.4) D-Dimer 586 H* (215-500) ng/mL Sodium 140 (137-145) mmol/L Potassium 4.1 (3.5-5.1) mmol/L Chloride 102 (98-107) mmol/L Carbon Dioxide 28 (22-30) mmol/L Anion Gap 13.9 (5-15) MEQ/L BUN 11 (7-17) mg/dL Creatinine 0.72 (0.52-1.04) mg/dL Estimated GFR > 60.0 ML/MIN Glucose 88 (74-106) mg/dL POC Glucometer (74 to 106) mg/dL Lactic Acid (0.4-2.0) Calcium 9.5 (8.4-10.2) mg/dL Total Bilirubin 0.30 (0.2-1.3) mg/dL AST 24 (14-36) U/L ALT 15 (0-35) U/L Alkaline Phosphatase 67 (38-126) U/L Troponin I < 0.012 (0.000-0.034) ng/mL NT-Pro-B Natriuret Pep 97.6 (0-900) pg/mL Serum Total Protein 7.6 (6.3-8.2) g/dL Albumin 4.4 (3.5-5.0) g/dL Urine Color (YELLOW) Urine Appearance (CLEAR) Urine pH (5-6) Ur Specific [place] (1.005-1.025) Urine Protein (Negative) Urine Ketones (NEGATIVE) Urine Blood (0-5) Jens/ul Urine Nitrite (NEGATIVE) Urine Bilirubin (NEGATIVE) Urine Urobilinogen (0-1) mg/dL Ur Leukocyte Esterase (NEGATIVE) Urine WBC (Auto) (0-5) /HPF Urine RBC (Auto) (0-2) /HPF U Epithel Cells (Auto) (FEW) /HPF Urine Bacteria (Auto) (NEGATIVE) /HPF Urine Culture Reflexed (NO) Urine Glucose (NEGATIVE) mg/dL 12/09/20 Range/Units 18:05 WBC 7.0 (4.0-10.5) K/mm3 RBC 3.82 L (4.1-5.4) M/mm3 Hgb 10.1 L (12.0-16.0) gm/dl Hct 34.2 L (35-47) % MCV 89.5 (78-100) fl MCH 26.4 (26-32) pg MCHC 29.5 L (32-36) g/dl RDW 15.1 H (11.5-14.0) % Plt Count 206 (150-450) K/mm3 MPV 12.2 H (7.5-11.0) fl Gran % 53.9 (36.0-66.0) % Eos # (Auto) 0.18 (0-0.5) Absolute Lymphs (auto) 2.40 (1.0-4.6) Absolute Monos (auto) 0.63 (0.0-1.3) Lymphocytes % 34.4 (24.0-44.0) % Monocytes % 9.0 (0.0-12.0) % Eosinophils % 2.6 (0.00-5.0) % Basophils % 0.1 (0.0-0.4) % Absolute Granulocytes 3.76 (1.4-6.9) Basophils # 0.01 (0-0.4) D-Dimer (215-500) ng/mL Sodium (137-145) mmol/L Potassium (3.5-5.1) mmol/L Chloride (98-107) mmol/L Carbon Dioxide (22-30) mmol/L Anion Gap (5-15) MEQ/L BUN (7-17) mg/dL Creatinine (0.52-1.04) mg/dL Estimated GFR ML/MIN Glucose (74-106) mg/dL POC Glucometer (74 to 106) mg/dL Lactic Acid (0.4-2.0) Calcium (8.4-10.2) mg/dL Total Bilirubin (0.2-1.3) mg/dL AST (14-36) U/L ALT (0-35) U/L Alkaline Phosphatase (38-126) U/L Troponin I (0.000-0.034) ng/mL NT-Pro-B Natriuret Pep (0-900) pg/mL Serum Total Protein (6.3-8.2) g/dL Albumin (3.5-5.0) g/dL Urine Color (YELLOW) Urine Appearance (CLEAR) Urine pH (5-6) Ur Specific [place] (1.005-1.025) Urine Protein (Negative) Urine Ketones (NEGATIVE) Urine Blood (0-5) Jens/ul Urine Nitrite (NEGATIVE) Urine Bilirubin (NEGATIVE) Urine Urobilinogen (0-1) mg/dL Ur Leukocyte Esterase (NEGATIVE) Urine WBC (Auto) (0-5) /HPF Urine RBC (Auto) (0-2) /HPF U Epithel Cells (Auto) (FEW) /HPF Urine Bacteria (Auto) (NEGATIVE) /HPF Urine Culture Reflexed (NO) Urine Glucose (NEGATIVE) mg/dL - Progress Progress: improved Air Movement: good Progress Note: We have no available beds here at [facility]. We contacted [facility]. I discussed the case with hospitalist Dr. Barrientos who accepts transfer. We are awaiting transfer center to provide us with a bed assignment. Plan of care discussed with patient. She agrees to transfer to [facility] for further evaluation and treatment. 12/09/20 21:40 Dimer is 586 however adjusted to age indicates a normal D-dimer. No indication for CTA chest at this time. 12/10/20 01:25 12/10/20 07:23 Reassessed. She feels well. Patient slept throughout the night. Patient states that she will only go to [facility]. [facility] has no beds available at this time. We are awaiting transfer. Patient was initially tachycardic upon arrival. Tachycardia spontaneously resolved to a sinus rhythm, rate 65. X3. 12/10/20 07:[address] Hilliard at change of shift. Blood Culture(s) Obtained: No Antibiotics given: No Counseled pt/family regarding: lab results, diagnosis, rad results - Departure Departure Disposition: Transfer Clinical Impression: ACS (acute coronary syndrome), Tachycardia Condition: Stable Critical Care Time: No Referrals: MAYANK COX [Primary Care Provider] -
[2020-12-09] MEDS ORDERED: NITRO-BID 2% UD PACKETS ONE (20:29)
[2020-12-10] MEDS ORDERED: TYLENOL 325 MG PO STA (07:45)
[2020-12-10] MEDS ORDERED: TYLENOL 325 MG ONE (07:47)
[2020-12-10] MEDS ORDERED: Zofran 4 MG/2 ML VIAL IV PRN (15:54)
[2020-12-10] MEDS ORDERED: DUONEB 0.5-3 MG/3 ml Neb IH PRN (15:54)
[2020-12-10] MEDS ORDERED: NON-FORMULARY ITEM (Linaclotide [Linzess] 145 MCG) PO PRN (16:56)
[2020-12-10] MEDS ORDERED: Nitrostat 0.4 MG Tablet SL PRN (17:00)
[2020-12-10] MEDS ORDERED: MEDICATION INTERVENTION PO SCH (17:15)
[2020-12-10] MEDS: AMARYL 4 MG PO SCH (17:39)
[2020-12-10] MEDS: Novolin N SQ SCH (17:39)
[2020-12-10] MEDS: HUMALOG SQ SCH (17:39)
[2020-12-10] MEDS: ECOTRIN 81 MG PO SCH (17:40)
[2020-12-10] MEDS: Protonix 40MG Tablet PO SCH (17:40)
[2020-12-10] MEDS: PLAVIX 75 MG Tablet PO SCH (17:40)
[2020-12-10] MEDS: Glucophage 500 MG PO SCH (17:40)
[2020-12-10] MEDS: ZOCOR 20MG PO SCH (17:40)
[2020-12-10] MEDS: Imdur 60MG PO SCH (17:40)
[2020-12-10] MEDS: Zestril 5 MG PO SCH (17:40)
[2020-12-10] MEDS: Colace 100 MG PO SCH (17:41)
[2020-12-10] MEDS ORDERED: PROVENTIL 2.5 MG/3 ML NEB IH SCH (19:00)
[2020-12-10] MEDS: HUMALOG SQ PRN (21:33)
[2020-12-10] MEDS: Ranexa 500 MG PO SCH (21:33)
[2020-12-10] MEDS: Pepcid 20 MG PO SCH (21:33)
[2020-12-10] MEDS: Coreg 6.25 MG PO SCH (21:33)
[2020-12-10] MEDS ORDERED: FLUOXETINE HCL 20 MG PO SCH (22:00)
[2020-12-10] MEDS ORDERED: INSULIN LISPRO 30 UNIT SQ SCH (22:00)
[2020-12-10] MEDS ORDERED: Prozac 20 MG PO SCH (22:00)
--- NOTE | 2020-12-11 05:23 | XRAY ---
Exam: AP upright portable chest film from 12/09/2020. Comparison: Two-view chest series from 05/28/2020. Indication: Chest pain. Findings: The transverse heart size is normal. A right-sided portacatheter is seen with the tip pointing inferiorly within the distal SVC. I again note mild elevation of the right hemidiaphragm with perhaps slight blunting of the right lateral costophrenic angle. I cannot exclude a couple tiny surgical clips within the lower right axilla/right lateral chest wall. The lungs are adequately expanded. Minimal bibasilar chronic interstitial markings are seen. No air space infiltrates, vascular congestion, pneumothorax, or pleural fluid on the left is seen. Prominent lateral osteophytes are seen within the mid and lower thoracic spine. Respiratory tubing overlies left lung apex. There appears to be a small calcified granuloma at the right lung apex. Impression: 1. No acute cardiopulmonary disease is seen. 2. Minimal chronic bibasilar interstitial markings, mild elevation/eventration of the right hemidiaphragm with slight blunting of the right costophrenic angle, and right-sided portacatheter are again seen.
[2020-12-11 05:48] LABS: BASOPHIL % 0.2 % (0.0-0.4); Basophil (Absolute #) 0.01 (0-0.4); Eosinophil % 2.3 % (0.00-5.0); Eosinophil (Absolute #) 0.14 (0-0.5); Hematocrit 32.7 % (35-47); Hemoglobin 9.6 gm/dl (12.0-16.0); Lymphocyte (Absolute #) 1.82 (1.0-4.6); Lymphocytes % 30.5 % (24.0-44.0); Mean Cell Volume 89.8 fl (78-100); Mean Corpuscular Hemoglobin 26.4 pg (26-32); Mean Corpuscular Hgb Concent. 29.4 g/dl (32-36); Mean Platelet Volume 12.3 fl (7.5-11.0); Monocyte (Absolute #) 0.59 (0.0-1.3); Monocytes % 9.9 % (0.0-12.0); Neutrophil % 57.1 % (36.0-66.0); Platelet Count 153 K/mm3 (150-450); Red Blood Count 3.64 M/mm3 (4.1-5.4)
[2020-12-11 06:08] LABS: ALBUMIN 3.8 g/dL (3.5-5.0); ALKALINE PHOSPHATASE 58 U/L (38-126); BLOOD UREA NITROGEN 13 mg/dL (7-17); CHLORIDE 102 mmol/L (98-107); Calcium 8.9 mg/dL (8.4-10.2); Carbon Dioxide 28 mmol/L (22-30); Creatinine 1 0.64 mg/dL (0.52-1.04); EST GLOMERULAR FILTRATION RATE > 60.0 ML/MIN; Glucose 137 mg/dL (74-106); Potassium 4.3 mmol/L (3.5-5.1); SGOT/AST 19 U/L (14-36); SGPT/ALT 13 U/L (0-35); SODIUM 138 mmol/L (137-145); Total Protein 6.8 g/dL (6.3-8.2)
[2020-12-11] MEDS: AMARYL 4 MG PO SCH (08:08)
[2020-12-11] MEDS: Glucophage 500 MG PO SCH (08:08)
[2020-12-11] MEDS: Novolin N SQ SCH (08:11)
[2020-12-11] MEDS: HUMALOG SQ SCH ×2 (08:11→12:02)
--- NOTE | 2020-12-11 08:28 | PCM.HP ---
History of Present Illness - Chief Complaint Chief Complaint: Acute Coronary Syndrome History of Present Illness: is a 70 year old female.presents to our emergency department with her for evaluation of chest pain heart palpitations. Symptoms started today. Patient has a history of coronary artery stents placed approximately 2 years ago. 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 Patient took 2 nitroglycerin sublingual tablets prior to arrival. EKG performed shows sinus tachycardia. Patient denies nausea vomiting dizziness. No diaphoresis. No syncope. Patient voices no other complaints or concerns at this time. - Review of Systems Constitutional: No Fever, No Chills Eyes: No Symptoms Ears, Nose, & Throat: No Symptoms Respiratory: No Cough, No Short Of Breath Cardiac: Chest Pain, No Edema, No Syncope Abdominal/Gastrointestinal: No Abdominal Pain, No Nausea, No Vomiting, No Diarrhea Genitourinary Symptoms: No Dysuria Musculoskeletal: No Back Pain, No Neck Pain Skin: No Rash Neurological: No Dizziness, No Focal Weakness, No Sensory Changes Psychological: No Symptoms Endocrine: No Symptoms Hematologic/Lymphatic: No Symptoms Immunological/Allergic: No Symptoms Medications & Allergies Home Medications: Home Medication List Fluoxetine HCl 20 mg PO HS 03/20/13 [History Confirmed 12/10/20] Isosorbide Mononitrate 30 mg [Imdur 30 MG] 60 mg PO DAILY 03/20/13 [History Confirmed 12/10/20] Lisinopril 5 mg [Zestril 5 MG] 2.5 mg PO DAILY 03/20/13 [History Confirmed 12/10/20] Omeprazole 20 MG [Prilosec 20 mg] 20 mg PO DAILY 03/20/13 [History Confirmed 12/10/20] Famotidine 20 mg [Pepcid 20 MG] 20 mg PO BID 11/22/17 [History Confirmed 12/10/20] Glimepiride 4 mg [Amaryl 4 mg] 4 mg PO BID 11/22/17 [History Confirmed 12/10/20] Metformin HCl 500 mg PO BID 11/22/17 [History Confirmed 12/10/20] Nitroglycerin 0.4 mg Tablet [Nitrostat 0.4 MG Tablet] 0.4 mg SL UD 11/22/17 [History Confirmed 12/10/20] Ranolazine 500 MG [Ranexa 500 MG] 500 mg PO BID 11/22/17 [History Confirmed 12/10/20] Atorvastatin Calcium [Lipitor] 80 mg PO DAILY 07/24/19 [History Confirmed 12/10/20] Albuterol 2.5 mg/3 ml Neb [Proventil 2.5 mg/3 ml Neb] 2.5 mg IH QID 0 10/29/20 [History Confirmed 12/10/20] Aspirin 81 mg PO DAILY 10/29/20 [History Confirmed 12/10/20] Carvedilol 6.25 mg [Coreg 6.25 MG] 6.25 mg PO BID 10/29/20 [History Confirmed 12/10/20] Clopidogrel Bisulfate 75 mg [PLAVIX 75 MG Tablet] 75 mg PO DAILY 10/29/20 [History Confirmed 12/10/20] Docusate Sodium 100 mg [Colace 100 MG] 100 mg PO DAILY 10/29/20 [History Confirmed 12/10/20] Insulin Lispro [Humalog] 30 unit SQ TID 10/29/20 [History Confirmed 12/10/20] Insulin NPH Human Isophane [Humulin N] 60 unit SQ BID 10/29/20 [History Confirmed 12/10/20] Linaclotide [Linzess] 145 mcg PO DAILY PRN 10/29/20 [History Confirmed 12/10/20] Allergies/Adverse Reactions: Allergies Allergy/AdvReac Type Severity Reaction Status Date / Time hydromorphone [From Dilaudid] Allergy Severe Verified 12/09/20 13:51 sulfamethoxazole Allergy Intermediate Verified 12/10/20 15:58 [From Sulfamethoxazole-Trimethoprim] trimethoprim Allergy Intermediate Verified 12/10/20 15:58 [From Sulfamethoxazole-Trimethoprim] acetaminophen Allergy "SHUTS Verified 12/09/20 13:51 [From Darvocet-N 100] DOWN MY SYSTEM" amoxicillin [From Augmentin] Allergy Verified 12/09/20 13:51 clavulanic acid Allergy Verified 12/09/20 13:51 [From Augmentin] codeine Allergy "SHUTS MY Verified 12/09/20 13:51 SYSTEMS DOWN" nalbuphine HCl [From Nubain] Allergy "SHUTS MY Verified 12/09/20 13:51 SYSTEM DOWN" propoxyphene napsylate Allergy "SHUTS Verified 12/09/20 13:51 [From Darvocet-N 100] DOWN MY SYSTEM" gabapentin [From Neurontin] AdvReac Verified 12/09/20 13:51 surgical tape Allergy Uncoded 12/10/20 15:58 - Past Medical History Past Medical History: Yes Neurological History: No Pertinent History ENT History: Cataracts Cardiac History: Coronary Artery Disease, High Cholesterol, Hypertension, Myocardial Infarction ([place]) Respiratory History: COPD, Sleep Apnea Endocrine Medical History: Diabetes Type II, Hypothyroidism Musculoskelatal History: Arthritis, Fibromyalgia GI Medical History: Diverticulitis, GERD, Hernia, Irritable Bowel History: No Pertinent History Pyscho-Social History: Depression Reproductive Disorders: Breast Cancer Comment: BACK SURGERY LAMINECTOMY L4-L5 1987. BILATERAL CARPAL TUNNEL SURGERY. THORACIC OUTLET SURGERY. PARTIAL COLECTOMY DUE TO DIVERTICULITIS - Female History Hx Last Menstrual Period: post Are you now?: No - Past Surgical History Past Surgical History: Yes Neuro Surgical History: No Pertinent History Cardiac History: No Pertinent History, Cardiac Catheterization, Cardiac Stent Respiratory Surgery: Lobectomy GI Surgical History: Appendectomy, Cholecystectomy, Colon Resection, Hernia Repair Genitourinary Surgical Hx: No Pertinent History Musculskeletal Surgical Hx: Other Female Surgical History: Hysterectomy, Other Other Surgical History: partial right mastectomy. carpal tunnel. EGD. Colonoscopy. - Social History Smoking Status: Former smoker Exposure to second hand smoke: No Alcohol: None Drug Use: none - Physical Exam Vital Signs: Vital Signs - 24 hr Temp Pulse Resp BP Pulse Ox 12/11/20 08:06 111/54 12/11/20 07:37 97.1 F 56 L 18 88/49 99 12/11/20 04:00 98.1 F 63 17 106/56 100 12/11/20 00:00 98.1 F 69 17 118/56 99 12/10/20 20:00 97.4 F 65 18 146/64 100 12/10/20 17:06 84 16 98 12/10/20 16:20 98.0 F 68 16 180/77 100 12/10/20 15:54 98.0 F 68 16 180/77 100 12/10/20 13:48 70 18 138/87 100 12/10/20 12:40 61 16 142/68 100 12/10/20 11:04 68 18 128/104 98 12/10/20 10:59 65 15 128/104 100 General Appearance: no apparent distress, alert Neurologic Exam: alert, oriented x 3, cooperative, normal mood/affect, nml cerebellar function, nml station & gait, sensation nml, No motor deficits Eye Exam: PERRL/EOMI, eyes nml inspection Ears, Nose, Throat Exam: normal ENT inspection, TMs normal, pharynx normal, moist mucous membranes Neck Exam: normal inspection, non-tender, supple, full range of motion Respiratory Exam: normal breath sounds, lungs clear, No respiratory distress Cardiovascular Exam: regular rate/rhythm, normal heart sounds, normal peripheral pulses Gastrointestinal/Abdomen Exam: soft, normal bowel sounds, No tenderness, No mass Back Exam: normal inspection, normal range of motion, No CVA tenderness, No vertebral tenderness Extremity Exam: normal inspection, normal range of motion, pelvis stable Skin Exam: normal color, warm, dry, No rash Lymphatic Exam: No adenopathy Results - Labs Lab/Micro Results: Lab Results-Last 24 Hours 12/10/20 12/10/20 12/10/20 Range/Units 13:01 16:46 20:52 WBC (4.0-10.5) K/mm3 RBC (4.1-5.4) M/mm3 Hgb (12.0-16.0) gm/dl Hct (35-47) % MCV (78-100) fl MCH (26-32) pg MCHC (32-36) g/dl RDW (11.5-14.0) % Plt Count (150-450) K/mm3 MPV (7.5-11.0) fl Gran % (36.0-66.0) % Eos # (Auto) (0-0.5) Absolute Lymphs (auto) (1.0-4.6) Absolute Monos (auto) (0.0-1.3) Lymphocytes % (24.0-44.0) % Monocytes % (0.0-12.0) % Eosinophils % (0.00-5.0) % Basophils % (0.0-0.4) % Absolute Granulocytes (1.4-6.9) Basophils # (0-0.4) Sodium (137-145) mmol/L Potassium (3.5-5.1) mmol/L Chloride (98-107) mmol/L Carbon Dioxide (22-30) mmol/L Anion Gap (5-15) MEQ/L BUN (7-17) mg/dL Creatinine (0.52-1.04) mg/dL Estimated GFR ML/MIN Glucose (74-106) mg/dL POC Glucometer 300 H 258 H (74 to 106) mg/dL Calcium (8.4-10.2) mg/dL Total Bilirubin (0.2-1.3) mg/dL AST (14-36) U/L ALT (0-35) U/L Alkaline Phosphatase (38-126) U/L Serum Total Protein (6.3-8.2) g/dL Albumin (3.5-5.0) g/dL SARS-CoV-2 (PCR) NEGATIVE (NEGATIVE) 12/11/20 12/11/20 12/11/20 Range/Units 05:37 05:37 07:25 WBC 6.0 (4.0-10.5) K/mm3 RBC 3.64 L (4.1-5.4) M/mm3 Hgb 9.6 L (12.0-16.0) gm/dl Hct 32.7 L (35-47) % MCV 89.8 (78-100) fl MCH 26.4 (26-32) pg MCHC 29.4 L (32-36) g/dl RDW 15.0 H (11.5-14.0) % Plt Count 153 (150-450) K/mm3 MPV 12.3 H (7.5-11.0) fl Gran % 57.1 (36.0-66.0) % Eos # (Auto) 0.14 (0-0.5) Absolute Lymphs (auto) 1.82 (1.0-4.6) Absolute Monos (auto) 0.59 (0.0-1.3) Lymphocytes % 30.5 (24.0-44.0) % Monocytes % 9.9 (0.0-12.0) % Eosinophils % 2.3 (0.00-5.0) % Basophils % 0.2 (0.0-0.4) % Absolute Granulocytes 3.40 (1.4-6.9) Basophils # 0.01 (0-0.4) Sodium 138 (137-145) mmol/L Potassium 4.3 (3.5-5.1) mmol/L Chloride 102 (98-107) mmol/L Carbon Dioxide 28 (22-30) mmol/L Anion Gap 12.0 (5-15) MEQ/L BUN 13 (7-17) mg/dL Creatinine 0.64 (0.52-1.04) mg/dL Estimated GFR > 60.0 ML/MIN Glucose 137 H (74-106) mg/dL POC Glucometer 109 H (74 to 106) mg/dL Calcium 8.9 (8.4-10.2) mg/dL Total Bilirubin 0.20 (0.2-1.3) mg/dL AST 19 (14-36) U/L ALT 13 (0-35) U/L Alkaline Phosphatase 58 (38-126) U/L Serum Total Protein 6.8 (6.3-8.2) g/dL Albumin 3.8 (3.5-5.0) g/dL SARS-CoV-2 (PCR) (NEGATIVE) Accuchecks Date 12/11/20 Date 12/10/20 Date 12/10/20 Time 16:48 - Radiology Impressions Radiology Exams & Impressions: Radiology Procedures Category Date Time Status CHEST 1 VIEW (PORTABLE) Stat Exams 12/09/20 19:05 Completed - Other Procedures and Tests Respiratory Therapy 12/10/20 15:54 Oxygen Nasal Cannula 2 lpm 12/10/20 16:58 BiPap/CPAP ROUTINE Respiratory Therapy Assessment DAILY Assessment/Plan (1) ACS (acute coronary syndrome) Current Visit: Yes Status: Acute Code(s): I24.9 - ACUTE ISCHEMIC HEART DISEASE, UNSPECIFIED (2) Tachycardia Current Visit: Yes Status: Acute Code(s): R00.0 - TACHYCARDIA, UNSPECIFIED (3) COPD (chronic obstructive pulmonary disease) Current Visit: No Status: Chronic Qualifiers: COPD type: unspecified COPD Qualified Code(s): J44.9 - Chronic obstructive pulmonary disease, unspecified (4) Diabetes type 2, uncontrolled Current Visit: No Status: Chronic Code(s): E11.65 - TYPE 2 DIABETES MELLITUS WITH HYPERGLYCEMIA
[2020-12-11] MEDS: Ranexa 500 MG PO SCH (09:31)
[2020-12-11] MEDS: Coreg 6.25 MG PO SCH (09:32)
[2020-12-11] MEDS: ECOTRIN 81 MG PO SCH (09:32)
[2020-12-11] MEDS: Pepcid 20 MG PO SCH (09:32)
[2020-12-11] MEDS: Protonix 40MG Tablet PO SCH (09:32)
[2020-12-11] MEDS: Imdur 60MG PO SCH (09:32)
[2020-12-11] MEDS: ZOCOR 20MG PO SCH (09:32)
[2020-12-11] MEDS: Zestril 5 MG PO SCH (09:32)
[2020-12-11] MEDS: Colace 100 MG PO SCH (09:33)
[2020-12-11] MEDS: PLAVIX 75 MG Tablet PO SCH (09:38)
[2020-12-11] MEDS ORDERED: NON-FORMULARY ITEM (Omeprazole 20 Mg [Prilosec 20 Mg] 20 MG) PO SCH (10:00)
[2020-12-11] MEDS ORDERED: NON-FORMULARY ITEM (Aspirin [Aspirin] 81 MG) PO SCH (10:00)
[2020-12-11] MEDS ORDERED: PROTONIX 40 MG IV IV SCH (10:00)
[2020-12-11] MEDS ORDERED: LIPITOR 40MG PO SCH (10:00)
[2020-12-11 10:27] LABS: TSH, 3RD Generation 1.31 mIU/L (0.47-4.68)
[2020-12-11] MEDS ORDERED: TYLENOL 325 MG PO PRN (11:43)
[2020-12-11] MEDS: HUMALOG SQ PRN (12:01)
[2020-12-11 13:25] VITALS: BP 115/58; PULSE 64; O2SAT 100
== END 2020-12-11 13:50 | disposition home or self-care (01) ==
LOC: ED 18:44 → MED SURG 12-10 15:43
PROVIDERS: ADMIT General Practice; ATTEND General Practice
DX: I24.9 Acute ischemic heart disease, unspecified (principal); E11.65 Type 2 diabetes mellitus with hyperglycemia; I10 Essential (primary) hypertension; E78.00 Pure hypercholesterolemia, unspecified; E03.9 Hypothyroidism, unspecified; R00.0 Tachycardia, unspecified; J44.9 Chronic obstructive pulmonary disease, unspecified; Z86.79 Personal history of other diseases of the circulatory system; Z79.01 Long term (current) use of anticoagulants; Z79.899 Other long term (current) drug therapy; Z20.828 Contact with and (suspected) exposure to other viral communicable diseases
CPT/HCPCS: 36000; 36415; 71045; 80053; 81001; 82306; 82947; 83605; 83735; 83880; 84443; 84484; 85025; 85379; 93005; 93041; 93268; 94640; 94760; 99285; G0378; U0003; J1642; J1817; J2405; J7609; A9270-GY

== ENCOUNTER 2021-01-13 06:53 | Day surgery (SDC) | payer MEDICARE ==
[2021-01-13] MEDS ORDERED: Lactated Ringers 1,000 ML IV SCH (07:00)
[2021-01-13] MEDS ORDERED: BETADINE 5% OPHTHALMIC 30 ML OP ONE (07:00)
[2021-01-13] MEDS ORDERED: TETRACAINE 0.5% STERI-UNIT SOL OP ONE ×2 (07:00)
[2021-01-13] MEDS ORDERED: cefUROXime sodium 0.005 GM in Sodium Chloride Flush 30 ML*** 0.5 ML IJ SCH (07:00)
[2021-01-13] MEDS ORDERED: NON-FORMULARY ITEM OP ONE (07:00)
[2021-01-13] MEDS ORDERED: Ak-Dilate OPHTHALMIC*** 1.065 ML, Cyclogyl 1% OPHTH SOL 5 ML 1.065 ML, GATIFLOXACIN 0.5... OP ONE ×4 (07:00)
[2021-01-13] MEDS ORDERED: Lactated Ringers 1,000 ML IV ONE (07:08)
[2021-01-13] MEDS ORDERED: Zofran 4 MG/2 ML VIAL IV PRN (09:00)
[2021-01-13] MEDS ORDERED: DIPRIVAN 200 MG/20 ML IV ONE ×2 (09:30→09:44)
[2021-01-13] MEDS ORDERED: Xylocaine-Mpf 2% 5 Ml Vial ONE (09:30)
[2021-01-13] MEDS ORDERED: ROBINUL ONE (09:30)
[2021-01-13] MEDS ORDERED: LIDOCAINE HCL 1% 50 MG/5 ML VL PF IJ ONE (10:00)
[2021-01-13] MEDS ORDERED: Epinephrine Preservative Free 1 MG/ML IJ ONE (10:00)
[2021-01-13 10:17] VITALS: O2SAT 100
[2021-01-13] MEDS ORDERED: Sodium Chloride 0.9% 10 ML FLUSH Syringe PORT FLUSH PRN (10:36)
[2021-01-13 10:46] VITALS: BP 138/77; PULSE 72
== END 2021-01-13 10:55 | disposition home or self-care (01) ==
LOC: SDC 06:53
PROVIDERS: ATTEND Ophthalmology
DX: H25.811 Combined forms of age-related cataract, right eye (principal); E11.9 Type 2 diabetes mellitus without complications; Z79.899 Other long term (current) drug therapy
CPT/HCPCS: 82947; 99100; C1780; J0171; J1642; J2001; J2704; A9270-GY

== ENCOUNTER 2021-09-12 20:33 | Observation (INO) | payer MEDICARE ==
[2021-09-12] MEDS ORDERED: SUBLIMAZE 100 MCG/2 ML IV ONE ×2 (20:42→22:35)
[2021-09-12] MEDS ORDERED: LOPRESSOR 5 MG/5 ML INJECTION IV ONE ×2 (20:42→21:15)
[2021-09-12] MEDS ORDERED: Sodium Chloride 0.9% 1000 ML 1,000 ML IV SCH (20:45)
[2021-09-12 21:13] LABS: Absolute Neutrophil Ct (ANC) 3.47 (1.4-6.9); Basophil (Absolute #) 0.02 (0-0.4); Eosinophil % 1.4 % (0.00-5.0); Eosinophil (Absolute #) 0.09 (0-0.5); Hematocrit 39.1 % (35-47); Lymphocyte (Absolute #) 2.09 (1.0-4.6); Lymphocytes % 33.5 % (24.0-44.0); Mean Cell Volume 92.2 fl (78-100); Mean Corpuscular Hemoglobin 28.3 pg (26-32); Mean Corpuscular Hgb Concent. 30.7 g/dl (32-36); Mean Platelet Volume 11.9 fl (7.5-11.0); Monocyte (Absolute #) 0.57 (0.0-1.3); Monocytes % 9.1 % (0.0-12.0); Neutrophil % 55.7 % (36.0-66.0); Platelet Count 158 K/mm3 (150-450); Red Blood Count 4.24 M/mm3 (4.1-5.4); Red Cell Distribution Width 18.9 % (11.5-14.0); White Blood Count 6.2 K/mm3 (4.0-10.5)
[2021-09-12] MEDS ORDERED: SUBLIMAZE 100 MCG/2 ML ONE ×2 (21:16→22:26)
[2021-09-12 21:19] LABS: INR 1.04 (0.8-3.0); PROTIME 12.3 SECONDS (9.4-12.5)
[2021-09-12 21:32] LABS: ALKALINE PHOSPHATASE 81 U/L (38-126); AMYLASE 53 U/L (30-110); BLOOD UREA NITROGEN 14 mg/dL (7-17); CHLORIDE 103 mmol/L (98-107); Calcium 9.2 mg/dL (8.4-10.2); Carbon Dioxide 26 mmol/L (22-30); Creatinine 1 0.74 mg/dL (0.52-1.04); EST GLOMERULAR FILTRATION RATE > 60.0 ML/MIN; Glucose 278 mg/dL (74-106); LIPASE 106 U/L (23-300); MAGNESIUM 1.7 mg/dL (1.6-2.3); NT PRO BNP 120 pg/mL (0-900); Potassium 4.2 mmol/L (3.5-5.1); SGOT/AST 27 U/L (14-36); SGPT/ALT 25 U/L (0-35); SODIUM 138 mmol/L (137-145)
--- NOTE | 2021-09-12 21:58 | XRAY ---
Indication: Chest pain. Short of breath. Comparison: December 09, 2020. Portable chest remains clear again with chronic right hemidiaphragm elevation. Heart not enlarged again with right Port-A-Cath. Bony thorax intact again with osteopenia and degenerative changes. Impression: Continued nonacute chest with chronic features.
[2021-09-12 22:19] LABS: Appearance CLEAR (CLEAR); Bilirubin NEGATIVE (NEGATIVE); Glucose 250 mg/dL (NEGATIVE); Ketones NEGATIVE (NEGATIVE)
[2021-09-12 22:20] LABS: Dipstick done @ ? MAIN LAB; Nitrite NEGATIVE (NEGATIVE); Ph 6.5 (5-6); Protein,Urine Dip TRACE (Negative); RBC TRACE-INTACT Ery/ul (0-5); Urobilinogen 0.2 mg/dL (0-1)
[2021-09-12 22:23] LABS: Epithelial Cells RARE /HPF (FEW)
[2021-09-12 22:24] LABS: Bacteria NONE SEEN /HPF (NEGATIVE); Urine Cultured Indicated? YES
--- NOTE | 2021-09-13 00:09 | ERPHSYRPT ---
- History of Present Illness Time Seen by Provider: 09/12/21 20:45 Historian: patient Exam Limitations: no limitations Patient Subjective Stated Complaint: Pt states "I was laying in bed and my chest started hurting. I took 2 nitro and some aspirin and it brought the pain down Triage Nursing Assessment: Pt alert and oriented x3, pt was brought to ED in wheelchair along with 2 L NC that she wears all the time, pt is tachycardic, pt c/o L sided chest pain that shoots to her L shoulder and neck that started 30 mins prior to arrival, pt took 2 nitro and 3 baby aspirin Physician History: Patient is a 70-year-old white female who has a history of some cardiac disease including 2 previous stents who presents with left-sided chest pain which goes through to the left side of the neck and shoulder. It started 1/2-hour prior to arrival associated with some nausea no vomiting she is chronically short of breath she took 2 nitros at home and 3 aspirin and had only brief relief. Timing/Duration: today Activities at Onset: none Quality: pressure Location: substernal Chest Pain Radiation: neck, arm Severity of Pain-Max: moderate Severity of Pain-Current: moderate Modifying Factors: Improves With: nothing Associated Symptoms: nausea Prior Chest Pain/Cardiac Workup: recently seen/treated Nitro Today/Relief: 0.4 mg x 2 Aspirin Treatment Today: 81 mg x 3 Allergies/Adverse Reactions: hydromorphone [From Dilaudid] Allergy (Severe, Verified 12/09/20 13:51) sulfamethoxazole [From Sulfamethoxazole-Trimethoprim] Allergy (Intermediate, Verified 12/10/20 15:58) trimethoprim [From Sulfamethoxazole-Trimethoprim] Allergy (Intermediate, Verified 12/10/20 15:58) acetaminophen [From Darvocet-N 100] Allergy (Verified 12/09/20 13:51) "SHUTS DOWN MY SYSTEM" amoxicillin [From Augmentin] Allergy (Verified 12/09/20 13:51) clavulanic acid [From Augmentin] Allergy (Verified 12/09/20 13:51) codeine Allergy (Verified 12/09/20 13:51) "SHUTS MY SYSTEMS DOWN" nalbuphine HCl [From Nubain] Allergy (Verified 12/09/20 13:51) "SHUTS MY SYSTEM DOWN" propoxyphene napsylate [From Darvocet-N 100] Allergy (Verified 12/09/20 13:51) "SHUTS DOWN MY SYSTEM" gabapentin [From Neurontin] Adverse Reaction (Verified 12/09/20 13:51) surgical tape Allergy (Uncoded 12/10/20 15:58) Home Medications: Isosorbide Mononitrate 30 mg [Imdur 30 MG] 60 mg PO DAILY 03/20/13 [H istory] Lisinopril 5 mg [Zestril 5 MG] 2.5 mg PO DAILY 03/20/13 [History] Omeprazole 20 MG [Prilosec 20 mg] 20 mg PO DAILY 03/20/13 [History] Famotidine 20 mg [Pepcid 20 MG] 20 mg PO BID 11/22/17 [History] Glimepiride 4 mg [Amaryl 4 mg] 4 mg PO BID 11/22/17 [History] Metformin HCl 500 mg PO BID 11/22/17 [History] Nitroglycerin 0.4 mg Tablet [Nitrostat 0.4 MG Tablet] 0.4 mg SL UD 11/22/17 [History] Atorvastatin Calcium [Lipitor] 80 mg PO DAILY 07/24/19 [History] Aspirin 81 mg PO DAILY 10/29/20 [History] Clopidogrel Bisulfate 75 mg [PLAVIX 75 MG Tablet] 75 mg PO DAILY 10/29/20 [History] Insulin Lispro [Humalog] 30 unit SQ TID 10/29/20 [History] Desvenlafaxine [Desvenlafaxine ER] 50 mg PO DAILY 09/12/21 [History] Insulin NPH Hum/Reg Insulin Hm [Relion Novolin 70-30 Flexpen] 55 units SQ BID 09/12/21 [History] Metoprolol Tartrate 50 mg [Lopressor 50 MG] 50 mg PO BID 09/12/21 [History] clonazePAM [Clonazepam] 0.5 mg PO DAILY PRN PRN 09/12/21 [History] Hx Tetanus, Diphtheria Vaccination/Date Given: Yes Hx Influenza Vaccination/Date Given: Yes Hx Pneumococcal Vaccination/Date Given: Yes Immunizations Up to Date: Yes Travel Risk - International Travel Have you traveled outside of the country in past 3 weeks: No - Coronavirus Screening Are you exhibiting any of the following symptoms?: No Close contact with a COVID-19 positive Pt in past 14-21 Days: No - Vaccine Status Have you recieved a Covid-19 vaccination: Yes [employer]: Moderna - Vaccination Dates Date of 2cond Vaccination (if applicable): 07/28/20 - Review of Systems Constitutional: No Fever, No Chills Eyes: No Symptoms Ears, Nose, & Throat: No Symptoms Respiratory: Dyspnea, No Cough Cardiac: Chest Pain, No Edema, No Syncope Abdominal/Gastrointestinal: No Abdominal Pain, No Nausea, No Vomiting, No Diarrhea Genitourinary Symptoms: No Dysuria Musculoskeletal: No Back Pain, No Neck Pain Skin: No Rash Neurological: No Dizziness, No Focal Weakness, No Sensory Changes Psychological: No Symptoms Endocrine: No Symptoms All Other Systems: Reviewed and Negative - Past Medical History Pertinent Past Medical History: Yes Neurological History: No Pertinent History ENT History: Cataracts Cardiac History: Coronary Artery Disease, High Cholesterol, Hypertension, Myocardial Infarction (ME) Respiratory History: COPD, Lung Cancer, Sleep Apnea Endocrine Medical History: Diabetes Type II, Hypothyroidism Musculoskeletal History: Arthritis, Fibromyalgia GI Medical History: Diverticulitis, GERD, Hernia, Irritable Bowel History: No Pertinent History Psycho-Social History: Depression Female Reproductive Disorders: Breast Cancer Other Medical History: BACK SURGERY LAMINECTOMY L4-L5 1987. BILATERAL CARPAL TUNNEL SURGERY. THORACIC OUTLET SURGERY. PARTIAL COLECTOMY DUE TO DIVERTICULITIS - Past Surgical History Past Surgical History: Yes Neuro Surgical History: No Pertinent History Cardiac: No Pertinent History, Cardiac Catheterization, Cardiac Stent Respiratory: Lobectomy Gastrointestinal: Appendectomy, Cholecystectomy, Colon Resection, Hernia Repair Genitourinary: No Pertinent History Musculoskeletal: Other Female Surgical History: Hysterectomy, Other Other Surgical History: partial right mastectomy. carpal tunnel. EGD. Colonoscopy. - Social History Smoking Status: Former smoker Exposure to second hand smoke: No Drug Use: none Patient Lives Alone: No - Nursing Vital Signs Nursing Vital Signs: Initial Vital Signs Pulse Rate 120 H 09/12/21 20:35 Pain Scale Pain Intensity 6 - Physical Exam General Appearance: mild distress, alert Eye Exam: PERRL/EOMI, eyes nml inspection Ears, Nose, Throat Exam: normal ENT inspection, moist mucous membranes Neck Exam: normal inspection, non-tender, supple, full range of motion Respiratory Exam: normal breath sounds, lungs clear, No respiratory distress Cardiovascular Exam: regular rate/rhythm, normal heart sounds Gastrointestinal/Abdomen Exam: soft, No tenderness, No mass Back Exam: normal inspection, No CVA tenderness, No vertebral tenderness Extremity Exam: normal inspection, normal range of motion Neurologic Exam: alert, oriented x 3, cooperative, normal mood/affect, sensation nml, No motor deficits Skin Exam: normal color, warm, dry SpO2: 100 - Course Nursing assessment & vital signs reviewed: Yes EKG Interpreted by Me: RATE ([id number]), SVT, LAFB, Right Bundle Branch Block, Non- specific ST Changes - Radiology Exams Chest X-ray Interpretation: Interpreted by me, Negative (Elevation of the right hemidiaphragm and the presence of a port on that side are noted.) - CT Exams Chest CT Interpretation: Tele-radiologist Report Ordered Tests: Active Orders 24 hr Category Date Time Status EKG-ER Only STAT Care 09/12/21 20:42 Active IV Insertion STAT Care 09/12/21 20:42 Active CHEST 1 VIEW (PORTABLE) Stat Exams 09/12/21 20:43 Completed CHEST WITH CONTRAST [CT] Stat Exams 09/12/21 22:28 Taken AMYLASE Stat Lab 09/12/21 21:09 Completed CBC W DIFF Stat Lab 09/12/21 21:09 Completed CMP Stat Lab 09/12/21 21:09 Completed CULTURE,URINE Stat Lab 09/12/21 22:10 Received LIPASE Stat Lab 09/12/21 21:09 Completed Lactic Acid Stat Lab 09/12/21 21:19 Completed MAGNESIUM Stat Lab 09/12/21 21:09 Completed NT PRO BNP Stat Lab 09/12/21 21:09 Completed PROTIME WITH INR Stat Lab 09/12/21 21:09 Completed TROPONIN Q3H Lab 09/12/21 21:09 Completed TROPONIN Q3H Lab 09/12/21 23:30 Completed TROPONIN Q3H Lab 09/13/21 02:45 Ordered TROPONIN Q3H Lab 09/13/21 05:45 Ordered TROPONIN Q3H Lab 09/13/21 08:45 Ordered Medication Summary Generic Name Dose Route Start Last Admin Trade Name Freq PRN Reason Stop Dose Admin Sodium Chloride 1,000 mls @ 50 mls/hr 09/12/21 20:45 09/12/21 21:17 Sodium Chloride 0.9% 1000 Ml IV 10/12/21 20:44 50 mls/hr .Q20H ERIC Administration Discontinued Medications Generic Name Dose Route Start Last Admin Trade Name Dana PRN Reason Stop Dose Admin Fentanyl Citrate 50 mcg 09/12/21 20:42 09/12/21 21:18 Fentanyl Citrate 100 Mcg/2 Ml* Vial IV 09/12/21 20:43 50 mcg STAT ONE Administration Fentanyl Citrate Confirm 09/12/21 21:16 Fentanyl Citrate 100 Mcg/2 Ml* Vial Administered 09/12/21 21:17 Dose 100 mcg .ROUTE .STK-MED ONE Fentanyl Citrate Confirm 09/12/21 22:26 Fentanyl Citrate 100 Mcg/2 Ml* Vial Administered 09/12/21 22:27 Dose 100 mcg .ROUTE .STK-MED ONE Fentanyl Citrate 75 mcg 09/12/21 22:35 09/12/21 22:36 Fentanyl Citrate 100 Mcg/2 Ml* Vial IV 09/12/21 22:36 75 mcg STAT ONE Administration Metoprolol Tartrate 2.5 mg 09/12/21 20:42 09/12/21 21:18 Metoprolol Tartrate 5 Mg/5 Ml Injection IV 09/12/21 20:43 2.5 mg STAT ONE Administration Metoprolol Tartrate Confirm 09/12/21 21:15 Metoprolol Tartrate 5 Mg/5 Ml Injection Administered 09/12/21 21:16 Dose 5 mg IV .STK-MED ONE Lab/Rad Data: Laboratory Result Diagrams 09/12/21 21:09 09/12/21 21:09 Laboratory Results 09/12/21 09/12/21 09/12/21 Range/Units 23:30 22:10 21:19 WBC (4.0-10.5) K/mm3 RBC (4.1-5.4) M/mm3 Hgb (12.0-16.0) gm/dl Hct (35-47) % MCV (78-100) fl MCH (26-32) pg MCHC (32-36) g/dl RDW (11.5-14.0) % Plt Count (150-450) K/mm3 MPV (7.5-11.0) fl Gran % (36.0-66.0) % Eos # (Auto) (0-0.5) Absolute Lymphs (auto) (1.0-4.6) Absolute Monos (auto) (0.0-1.3) Lymphocytes % (24.0-44.0) % Monocytes % (0.0-12.0) % Eosinophils % (0.00-5.0) % Basophils % (0.0-0.4) % Absolute Granulocytes (1.4-6.9) Basophils # (0-0.4) PT (9.4-12.5) SECONDS INR (0.8-3.0) Sodium (137-145) mmol/L Potassium (3.5-5.1) mmol/L Chloride (98-107) mmol/L Carbon Dioxide (22-30) mmol/L Anion Gap (5-15) MEQ/L BUN (7-17) mg/dL Creatinine (0.52-1.04) mg/dL Estimated GFR ML/MIN Glucose (74-106) mg/dL Lactic Acid 1.3 (0.4-2.0) Calcium (8.4-10.2) mg/dL Magnesium (1.6-2.3) mg/dL Total Bilirubin (0.2-1.3) mg/dL AST (14-36) U/L ALT (0-35) U/L Alkaline Phosphatase (38-126) U/L Troponin I < 0.012 (0.000-0.034) ng/mL NT-Pro-B Natriuret Pep (0-900) pg/mL Serum Total Protein (6.3-8.2) g/dL Albumin (3.5-5.0) g/dL Amylase (30-110) U/L Lipase (23-300) U/L Urinalys Dipstick Clnc MAIN LAB Urine Color YELLOW (YELLOW) Urine Appearance CLEAR (CLEAR) Urine pH 6.5 (5-6) Ur Specific D Hanis 1.020 (1.005-1.025) POC Urine Protein Conf TRACE (Negative) Urine Ketones NEGATIVE (NEGATIVE) Urine Nitrite NEGATIVE (NEGATIVE) Urine Bilirubin NEGATIVE (NEGATIVE) Urine Urobilinogen 0.2 (0-1) mg/dL Urine Leukocytes NEGATIVE (NEGATIVE) Urine WBC (Auto) 3-5 (0-5) /HPF Urine RBC (Auto) NONE (0-2) /HPF U Epithel Cells (Auto) RARE (FEW) /HPF Urine Bacteria (Auto) NONE SEEN (NEGATIVE) /HPF Urine RBC TRACE-INTACT (0-5) Jens/ul Ur Culture Indicated? YES Urine Glucose 250 (NEGATIVE) mg/dL 09/12/21 09/12/21 09/12/21 Range/Units 21:09 21:09 21:09 WBC (4.0-10.5) K/mm3 RBC (4.1-5.4) M/mm3 Hgb (12.0-16.0) gm/dl Hct (35-47) % MCV (78-100) fl MCH (26-32) pg MCHC (32-36) g/dl RDW (11.5-14.0) % Plt Count (150-450) K/mm3 MPV (7.5-11.0) fl Gran % (36.0-66.0) % Eos # (Auto) (0-0.5) Absolute Lymphs (auto) (1.0-4.6) Absolute Monos (auto) (0.0-1.3) Lymphocytes % (24.0-44.0) % Monocytes % (0.0-12.0) % Eosinophils % (0.00-5.0) % Basophils % (0.0-0.4) % Absolute Granulocytes (1.4-6.9) Basophils # (0-0.4) PT 12.3 (9.4-12.5) SECONDS INR 1.04 (0.8-3.0) Sodium 138 (137-145) mmol/L Potassium 4.2 (3.5-5.1) mmol/L Chloride 103 (98-107) mmol/L Carbon Dioxide 26 (22-30) mmol/L Anion Gap 13.0 (5-15) MEQ/L BUN 14 (7-17) mg/dL Creatinine 0.74 (0.52-1.04) mg/dL Estimated GFR > 60.0 ML/MIN Glucose 278 H (74-106) mg/dL Lactic Acid (0.4-2.0) Calcium 9.2 (8.4-10.2) mg/dL Magnesium 1.7 (1.6-2.3) mg/dL Total Bilirubin 0.70 (0.2-1.3) mg/dL AST 27 (14-36) U/L ALT 25 (0-35) U/L Alkaline Phosphatase 81 (38-126) U/L Troponin I < 0.012 (0.000-0.034) ng/mL NT-Pro-B Natriuret Pep 120 (0-900) pg/mL Serum Total Protein 7.0 (6.3-8.2) g/dL Albumin 4.0 (3.5-5.0) g/dL Amylase 53 (30-110) U/L Lipase 106 (23-300) U/L Urinalys Dipstick Clnc Urine Color (YELLOW) Urine Appearance (CLEAR) Urine pH (5-6) Ur Specific D Hanis (1.005-1.025) POC Urine Protein Conf (Negative) Urine Ketones (NEGATIVE) Urine Nitrite (NEGATIVE) Urine Bilirubin (NEGATIVE) Urine Urobilinogen (0-1) mg/dL Urine Leukocytes (NEGATIVE) Urine WBC (Auto) (0-5) /HPF Urine RBC (Auto) (0-2) /HPF U Epithel Cells (Auto) (FEW) /HPF Urine Bacteria (Auto) (NEGATIVE) /HPF Urine RBC (0-5) Jens/ul Ur Culture Indicated? Urine Glucose (NEGATIVE) mg/dL 09/12/21 Range/Units 21:09 WBC 6.2 (4.0-10.5) K/mm3 RBC 4.24 (4.1-5.4) M/mm3 Hgb 12.0 (12.0-16.0) gm/dl Hct 39.1 (35-47) % MCV 92.2 (78-100) fl MCH 28.3 (26-32) pg MCHC 30.7 L (32-36) g/dl RDW 18.9 H (11.5-14.0) % Plt Count 158 (150-450) K/mm3 MPV 11.9 H (7.5-11.0) fl Gran % 55.7 (36.0-66.0) % Eos # (Auto) 0.09 (0-0.5) Absolute Lymphs (auto) 2.09 (1.0-4.6) Absolute Monos (auto) 0.57 (0.0-1.3) Lymphocytes % 33.5 (24.0-44.0) % Monocytes % 9.1 (0.0-12.0) % Eosinophils % 1.4 (0.00-5.0) % Basophils % 0.3 (0.0-0.4) % Absolute Granulocytes 3.47 (1.4-6.9) Basophils # 0.02 (0-0.4) PT (9.4-12.5) SECONDS INR (0.8-3.0) Sodium (137-145) mmol/L Potassium (3.5-5.1) mmol/L Chloride (98-107) mmol/L Carbon Dioxide (22-30) mmol/L Anion Gap (5-15) MEQ/L BUN (7-17) mg/dL Creatinine (0.52-1.04) mg/dL Estimated GFR ML/MIN Glucose (74-106) mg/dL Lactic Acid (0.4-2.0) Calcium (8.4-10.2) mg/dL Magnesium (1.6-2.3) mg/dL Total Bilirubin (0.2-1.3) mg/dL AST (14-36) U/L ALT (0-35) U/L Alkaline Phosphatase (38-126) U/L Troponin I (0.000-0.034) ng/mL NT-Pro-B Natriuret Pep (0-900) pg/mL Serum Total Protein (6.3-8.2) g/dL Albumin (3.5-5.0) g/dL Amylase (30-110) U/L Lipase (23-300) U/L Urinalys Dipstick Clnc Urine Color (YELLOW) Urine Appearance (CLEAR) Urine pH (5-6) Ur Specific D Hanis (1.005-1.025) POC Urine Protein Conf (Negative) Urine Ketones (NEGATIVE) Urine Nitrite (NEGATIVE) Urine Bilirubin (NEGATIVE) Urine Urobilinogen (0-1) mg/dL Urine Leukocytes (NEGATIVE) Urine WBC (Auto) (0-5) /HPF Urine RBC (Auto) (0-2) /HPF U Epithel Cells (Auto) (FEW) /HPF Urine Bacteria (Auto) (NEGATIVE) /HPF Urine RBC (0-5) Jens/ul Ur Culture Indicated? Urine Glucose (NEGATIVE) mg/dL - Progress Progress: unchanged Air Movement: good Blood Culture(s) Obtained: No Antibiotics given: No Discussed with : Nathan Will see patient in: hospital (observation) - Departure Departure Disposition: Observation Clinical Impression: Chest pain Condition: Stable Critical Care Time: Yes Critical Care Time(excluding separately billable procedures): Critical 30-74 mins (35) Referrals: MAYANK COX [Primary Care Provider] - Follow up/PCP as directed
[2021-09-13] MEDS ORDERED: MILK OF MAGNESIA 30 ML PO PRN (00:10)
[2021-09-13] MEDS ORDERED: MAALOX ES 30 ML UNIT DOSE PO PRN (00:10)
[2021-09-13] MEDS ORDERED: Senokot-S Tablet PO PRN (00:10)
[2021-09-13] MEDS ORDERED: TYLENOL 325 MG PO PRN (00:10)
[2021-09-13] MEDS ORDERED: Zofran 4 MG/2 ML VIAL IV PRN (00:10)
[2021-09-13] MEDS ORDERED: ENOXAPARIN SODIUM SQ SCH ×2 (00:15→12:00)
[2021-09-13] MEDS ORDERED: SUBLIMAZE 100 MCG/2 ML IV PRN (00:15)
[2021-09-13 00:58] LABS: INFLUENZA A NEGATIVE (NEGATIVE); INFLUENZA B NEGATIVE (NEGATIVE); RESPIRATORY SYNCTIAL VIRUS NEGATIVE (Negative); SARS-CoV-2 Xpert Express NEGATIVE (NEGATIVE)
[2021-09-13] MEDS ORDERED: GENTAMICIN 80 MG/50 ML PREMIX*** 80 MG/50 ML ML IV SCH (06:00)
[2021-09-13 07:49] VITALS: O2SAT 100
--- NOTE | 2021-09-13 07:56 | XRAY ---
Indication: Short of breath and left chest pain. History left lung, right breast, and liver cancer. Multiple contiguous axial images obtained through the chest using 80 cc Isovue 370 contrast and PE protocol. Comparison: December 22, 2006. There is good opacification of the pulmonary arteries to include the lobar and segmental branches. No pulmonary embolus. Heart not enlarged with new right Port-A-Cath. Aorta is mildly arteriosclerotic without aneurysm/dissection. Tiny subcarinal and right hilar calcified nodes. No pathologic mediastinal/hilar lymphadenopathy. Lungs demonstrates new mild diffuse bilateral fibrosis/scarring, mild right base pleural thickening, and mild pulmonary emphysema. No suspicious pulmonary mass, infiltrate, effusion, or pneumothorax. Bony thorax intact with osteopenia and moderate degenerative changes throughout the spine. Limited upper abdomen again demonstrates mild fatty liver and cholecystectomy clips. Impression: 1. Negative pulmonary embolus. No acute cardiopulmonary abnormalities. 2. New scattered pulmonary fibrosis/scarring, right base pleural thickening, and pulmonary emphysema. 3. Incidental fatty liver and chronic bony findings. Comment: Preliminary interpretation may by [facility]. No critical discrepancy.
[2021-09-13 08:14] LABS: Risk Ratio 4.6
[2021-09-13] MEDS ORDERED: CLINDAMYCIN-D5W 900 MG/50 ML*** 900 MG/50 ML BAG IV SCH (09:00)
[2021-09-13] MEDS ORDERED: clonazePAM PO PRN (09:12)
[2021-09-13] MEDS ORDERED: NON-FORMULARY ITEM (Linaclotide [Linzess] 72 MCG Capsule) PO PRN (09:12)
[2021-09-13] MEDS ORDERED: Nitrostat 0.4 MG Tablet SL SCH (09:15)
[2021-09-13] MEDS ORDERED: MEDICATION INTERVENTION MC SCH (09:30)
[2021-09-13] MEDS ORDERED: NON-FORMULARY ITEM (Aspirin [Aspirin] 81 MG Tablet) PO SCH (10:00)
[2021-09-13] MEDS ORDERED: [UNRECOGNIZED DRUG - OTHER] SQ SCH (10:00)
[2021-09-13] MEDS ORDERED: PRISTIQ ER PO SCH (10:00)
[2021-09-13] MEDS ORDERED: HUMALOG SQ SCH ×2 (10:00→12:00)
[2021-09-13] MEDS ORDERED: Zestril 5 MG PO SCH (10:00)
[2021-09-13] MEDS ORDERED: Ecotrin 325 MG PO SCH (10:00)
[2021-09-13] MEDS ORDERED: Imdur 30 MG PO SCH (10:00)
[2021-09-13] MEDS ORDERED: ECOTRIN 81 MG PO SCH (10:00)
[2021-09-13] MEDS ORDERED: ZOCOR 20MG PO SCH (10:00)
[2021-09-13] MEDS ORDERED: Pepcid 20 MG PO SCH (10:00)
[2021-09-13] MEDS ORDERED: Novolin 70/30 SQ SCH (10:00)
[2021-09-13] MEDS ORDERED: AMARYL 4 MG PO SCH (10:00)
[2021-09-13] MEDS ORDERED: NON-FORMULARY ITEM (Desvenlafaxine [Desvenlafaxine Er] 50 MG Tab.Er.24h) PO SCH (10:00)
[2021-09-13] MEDS ORDERED: NON-FORMULARY ITEM (Insulin Lispro 1 UNIT Ml) SQ SCH (10:00)
[2021-09-13] MEDS ORDERED: INSULIN REGULAR SQ SCH (10:00)
[2021-09-13] MEDS ORDERED: PLAVIX 75 MG Tablet PO SCH (10:00)
[2021-09-13] MEDS ORDERED: Protonix 40MG Tablet PO SCH (10:00)
[2021-09-13] MEDS ORDERED: LIPITOR 40MG PO SCH (10:00)
[2021-09-13] MEDS ORDERED: NON-FORMULARY ITEM (Omeprazole 20 Mg [Prilosec 20 Mg] 20 MG Capsule.Dr) PO SCH (10:00)
[2021-09-13] MEDS ORDERED: INSULIN ISOPHANE SQ SCH (10:00)
[2021-09-13] MEDS: Lopressor 50 MG PO SCH ×2 (10:28→10:30)
[2021-09-13 11:55] VITALS: BP 152/70; PULSE 54
--- NOTE | 2021-09-13 12:49 | PCM.SSS ---
History of Present Illness - Chief Complaint Chief Complaint: CP History of Present Illness: is a 70 year old female pt of DR. Ernesto Cox who was admitted through ER with chest pain to rule out MT. She has PMHx of CAD (stents x2 and hx MT - sees Dr. Tyson). Also has PMHx of HTN, DM II (on insulin), anx/depression, GERD, hyperlipidemia, hypothyroidism, OA, fibromyalgia, divertic ulitis (hx partial colectomy), hernia, IBS, Hx lung Ca (2009) and hx breast Ca (in 2011). She c/o L chest pain, 10/10, sharp, radiating to L arm and bilat neck. It eased up with nitro but didn't resolve; this morning still had pain 5/10. Does chronically have chest pain, but this episode was worse. 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 had recent carotid dopp ler.) Psychological: Other ("stressed" recently - mom 1 mo ago.) All Other Systems: Reviewed and Negative Medications & Allergies Home Medications: Home Medication List Isosorbide Mononitrate 30 mg [Imdur 30 MG] 30 mg PO DAILY 03/20/13 [History Confirmed 09/13/21] Lisinopril 5 mg [Zestril 5 MG] 2.5 mg PO DAILY 03/20/13 [History Confirmed 09/12/21] Omeprazole 20 MG [Prilosec 20 mg] 20 mg PO DAILY 03/20/13 [History Confirmed 09/12/21] Famotidine 20 mg [Pepcid 20 MG] 20 mg PO BID 11/22/17 [History Confirmed 09/12/21] Glimepiride 4 mg [Amaryl 4 mg] 4 mg PO BID 11/22/17 [History Confirmed 09/12/21] Metformin HCl 500 mg PO BID 11/22/17 [History Confirmed 09/12/21] Nitroglycerin 0.4 mg Tablet [Nitrostat 0.4 MG Tablet] 0.4 mg SL UD 11/22/17 [History Confirmed 09/12/21] Atorvastatin Calcium [Lipitor] 40 mg PO DAILY 07/24/19 [History Confirmed 09/13/21] Aspirin 81 mg PO DAILY 10/29/20 [History Confirmed 09/12/21] Clopidogrel Bisulfate 75 mg [PLAVIX 75 MG Tablet] 75 mg PO DAILY 10/29/20 [History Confirmed 09/12/21] Insulin Lispro [Humalog] 30 unit SQ TID 10/29/20 [History Confirmed 09/12/21] Desvenlafaxine [Desvenlafaxine ER] 50 mg PO DAILY 09/12/21 [History Confirmed 09/12/21] Insulin NPH Hum/Reg Insulin Hm [Relion Novolin 70-30 Flexpen] 55 units SQ BID 09/12/21 [History Confirmed 09/12/21] Metoprolol Tartrate 50 mg [Lopressor 50 MG] 50 mg PO BID 09/12/21 [History Confirmed 09/12/21] clonazePAM [Clonazepam] 0.5 mg PO DAILY PRN PRN 09/12/21 [History Confirmed 09/12/21] Linaclotide [Linzess] 145 mcg PO DAILY PRN 09/13/21 [History Confirmed 09/13/21] Allergies/Adverse Reactions: Allergies Allergy/AdvReac Type Severity Reaction Status Date / Time hydromorphone [From Dilaudid] Allergy Severe Verified 12/09/20 13:51 sulfamethoxazole Allergy Intermediate Verified 12/10/20 15:58 [From Sulfamethoxazole-Trimethoprim] trimethoprim Allergy Intermediate Verified 12/10/20 15:58 [From Sulfamethoxazole-Trimethoprim] acetaminophen Allergy "SHUTS Verified 12/09/20 13:51 [From Darvocet-N 100] DOWN MY SYSTEM" amoxicillin [From Augmentin] Allergy Verified 12/09/20 13:51 clavulanic acid Allergy Verified 12/09/20 13:51 [From Augmentin] codeine Allergy "SHUTS MY Verified 12/09/20 13:51 SYSTEMS DOWN" nalbuphine HCl [From Nubain] Allergy "SHUTS MY Verified 12/09/20 13:51 SYSTEM DOWN" propoxyphene napsylate Allergy "SHUTS Verified 12/09/20 13:51 [From Darvocet-N 100] DOWN MY SYSTEM" gabapentin [From Neurontin] AdvReac Verified 12/09/20 13:51 surgical tape Allergy Uncoded 12/10/20 15:58 - Past Medical History Past Medical History: Yes Neurological History: No Pertinent History ENT History: Cataracts Cardiac History: Coronary Artery Disease, High Cholesterol, Hypertension, Myocardial Infarction (MT) Respiratory History: COPD, Lung Cancer, Sleep Apnea Endocrine Medical History: Diabetes Type II, Hypothyroidism Musculoskelatal History: Arthritis, Fibromyalgia GI Medical History: Diverticulitis, GERD, Hernia, Irritable Bowel History: No Pertinent History Pyscho-Social History: Depression Reproductive Disorders: Breast Cancer Comment: BACK SURGERY LAMINECTOMY L4-L5 1987. BILATERAL CARPAL TUNNEL SURGERY. THORACIC OUTLET SURGERY. PARTIAL COLECTOMY DUE TO DIVERTICULITIS - Past Surgical History Past Surgical History: Yes Neuro Surgical History: No Pertinent History Cardiac History: No Pertinent History, Cardiac Catheterization, Cardiac Stent Respiratory Surgery: Lobectomy GI Surgical History: Appendectomy, Cholecystectomy, Colon Resection, Hernia Repair Genitourinary Surgical Hx: No Pertinent History Musculskeletal Surgical Hx: Other Female Surgical History: Hysterectomy, Other Other Surgical History: partial right mastectomy. carpal tunnel. EGD. Colonoscopy. - Social History Smoking Status: Former smoker Exposure to second hand smoke: No Alcohol: None Drug Use: none - Physical Exam Vital Signs: Vital Signs - 24 hr Temp Pulse Pulse Resp BP Pulse Ox 09/13/21 11:54 97.3 F 54 L 20 152/70 100 09/13/21 07:49 96.0 F 55 L 18 136/63 100 09/13/21 07:24 99 09/13/21 03:40 97.5 F 113 H 20 158/81 100 09/13/21 01:53 97.5 F 113 H 20 158/81 100 09/13/21 01:05 110 H 19 172/101 100 09/13/21 00:10 100 09/13/21 00:05 110 H 19 157/87 100 09/12/21 23:12 105 H 16 162/102 100 09/12/21 22:19 106 H 18 150/93 100 09/12/21 21:34 109 H 18 156/87 100 09/12/21 20:47 97.8 F 117 H 18 189/96 100 09/12/21 20:35 120 H General Appearance: no apparent distress, alert, obese Neurologic Exam: oriented x 3, cooperative, normal mood/affect Eye Exam: eyes nml inspection Ears, Nose, Throat Exam: moist mucous membranes Neck Exam: normal inspection Respiratory Exam: normal breath sounds, lungs clear, No crackles/rales, No rhonc hi, No wheezing Cardiovascular Exam: regular rate/rhythm, normal heart sounds, No murmur Gastrointestinal/Abdomen Exam: soft, normal bowel sounds, No tenderness, No distention, No mass, No guarding, No rebound Extremity Exam: normal inspection, No pedal edema, No swelling Skin Exam: normal color, warm, dry, No rash Results - Labs Lab/Micro Results: Lab Results-Last 24 Hours 09/12/21 09/12/21 09/12/21 Range/Units 21:09 21:09 21:09 WBC 6.2 (4.0-10.5) K/mm3 RBC 4.24 (4.1-5.4) M/mm3 Hgb 12.0 (12.0-16.0) gm/dl Hct 39.1 (35-47) % MCV 92.2 (78-100) fl MCH 28.3 (26-32) pg MCHC 30.7 L (32-36) g/dl RDW 18.9 H (11.5-14.0) % Plt Count 158 (150-450) K/mm3 MPV 11.9 H (7.5-11.0) fl Gran % 55.7 (36.0-66.0) % Eos # (Auto) 0.09 (0-0.5) Absolute Lymphs (auto) 2.09 (1.0-4.6) Absolute Monos (auto) 0.57 (0.0-1.3) Lymphocytes % 33.5 (24.0-44.0) % Monocytes % 9.1 (0.0-12.0) % Eosinophils % 1.4 (0.00-5.0) % Basophils % 0.3 (0.0-0.4) % Absolute Granulocytes 3.47 (1.4-6.9) Basophils # 0.02 (0-0.4) PT 12.3 (9.4-12.5) SECONDS INR 1.04 (0.8-3.0) Sodium 138 (137-145) mmol/L Potassium 4.2 (3.5-5.1) mmol/L Chloride 103 (98-107) mmol/L Carbon Dioxide 26 (22-30) mmol/L Anion Gap 13.0 (5-15) MEQ/L BUN 14 (7-17) mg/dL Creatinine 0.74 (0.52-1.04) mg/dL Estimated GFR > 60.0 ML/MIN Glucose 278 H (74-106) mg/dL POC Glucometer (74 to 106) mg/dL Lactic Acid (0.4-2.0) Calcium 9.2 (8.4-10.2) mg/dL Magnesium 1.7 (1.6-2.3) mg/dL Total Bilirubin 0.70 (0.2-1.3) mg/dL AST 27 (14-36) U/L ALT 25 (0-35) U/L Alkaline Phosphatase 81 (38-126) U/L Troponin I (0.000-0.034) ng/mL NT-Pro-B Natriuret Pep 120 (0-900) pg/mL Serum Total Protein 7.0 (6.3-8.2) g/dL Albumin 4.0 (3.5-5.0) g/dL Triglycerides (30-150) mg/dL Cholesterol (50-200) mg/dL LDL Cholesterol (30-100) mg/dL HDL Cholesterol (40-60) mg/dL Heart Disease Risk Ratio Amylase 53 (30-110) U/L Lipase 106 (23-300) U/L Urinalys Dipstick Clnc Urine Color (YELLOW) Urine Appearance (CLEAR) Urine pH (5-6) Ur Specific [place] (1.005-1.025) POC Urine Protein Conf (Negative) Urine Ketones (NEGATIVE) Urine Nitrite (NEGATIVE) Urine Bilirubin (NEGATIVE) Urine Urobilinogen (0-1) mg/dL Urine Leukocytes (NEGATIVE) Urine WBC (Auto) (0-5) /HPF Urine RBC (Auto) (0-2) /HPF U Epithel Cells (Auto) (FEW) /HPF Urine Bacteria (Auto) (NEGATIVE) /HPF Urine RBC (0-5) Jens/ul Ur Culture Indicated? Urine Glucose (NEGATIVE) mg/dL Influenza Type A Ag (NEGATIVE) Influenza Type B Ag (NEGATIVE) RSV (PCR) (Negative) SARS-CoV-2 (PCR) (NEGATIVE) 09/12/21 09/12/21 09/12/21 Range/Units 21:09 21:19 22:10 WBC (4.0-10.5) K/mm3 RBC (4.1-5.4) M/mm3 Hgb (12.0-16.0) gm/dl Hct (35-47) % MCV (78-100) fl MCH (26-32) pg MCHC (32-36) g/dl RDW (11.5-14.0) % Plt Count (150-450) K/mm3 MPV (7.5-11.0) fl Gran % (36.0-66.0) % Eos # (Auto) (0-0.5) Absolute Lymphs (auto) (1.0-4.6) Absolute Monos (auto) (0.0-1.3) Lymphocytes % (24.0-44.0) % Monocytes % (0.0-12.0) % Eosinophils % (0.00-5.0) % Basophils % (0.0-0.4) % Absolute Granulocytes (1.4-6.9) Basophils # (0-0.4) PT (9.4-12.5) SECONDS INR (0.8-3.0) Sodium (137-145) mmol/L Potassium (3.5-5.1) mmol/L Chloride (98-107) mmol/L Carbon Dioxide (22-30) mmol/L Anion Gap (5-15) MEQ/L BUN (7-17) mg/dL Creatinine (0.52-1.04) mg/dL Estimated GFR ML/MIN Glucose (74-106) mg/dL POC Glucometer (74 to 106) mg/dL Lactic Acid 1.3 (0.4-2.0) Calcium (8.4-10.2) mg/dL Magnesium (1.6-2.3) mg/dL Total Bilirubin (0.2-1.3) mg/dL AST (14-36) U/L ALT (0-35) U/L Alkaline Phosphatase (38-126) U/L Troponin I < 0.012 (0.000-0.034) ng/mL NT-Pro-B Natriuret Pep (0-900) pg/mL Serum Total Protein (6.3-8.2) g/dL Albumin (3.5-5.0) g/dL Triglycerides (30-150) mg/dL Cholesterol (50-200) mg/dL LDL Cholesterol (30-100) mg/dL HDL Cholesterol (40-60) mg/dL Heart Disease Risk Ratio Amylase (30-110) U/L Lipase (23-300) U/L Urinalys Dipstick Clnc MAIN LAB Urine Color YELLOW (YELLOW) Urine Appearance CLEAR (CLEAR) Urine pH 6.5 (5-6) Ur Specific [place] 1.020 (1.005-1.025) POC Urine Protein Conf TRACE (Negative) Urine Ketones NEGATIVE (NEGATIVE) Urine Nitrite NEGATIVE (NEGATIVE) Urine Bilirubin NEGATIVE (NEGATIVE) Urine Urobilinogen 0.2 (0-1) mg/dL Urine Leukocytes NEGATIVE (NEGATIVE) Urine WBC (Auto) 3-5 (0-5) /HPF Urine RBC (Auto) NONE (0-2) /HPF U Epithel Cells (Auto) RARE (FEW) /HPF Urine Bacteria (Auto) NONE SEEN (NEGATIVE) /HPF Urine RBC TRACE-INTACT (0-5) Jens/ul Ur Culture Indicated? YES Urine Glucose 250 (NEGATIVE) mg/dL Influenza Type A Ag (NEGATIVE) Influenza Type B Ag (NEGATIVE) RSV (PCR) (Negative) SARS-CoV-2 (PCR) (NEGATIVE) 09/12/21 09/13/21 09/13/21 Range/Units 23:30 00:20 03:14 WBC (4.0-10.5) K/mm3 RBC (4.1-5.4) M/mm3 Hgb (12.0-16.0) gm/dl Hct (35-47) % MCV (78-100) fl MCH (26-32) pg MCHC (32-36) g/dl RDW (11.5-14.0) % Plt Count (150-450) K/mm3 MPV (7.5-11.0) fl Gran % (36.0-66.0) % Eos # (Auto) (0-0.5) Absolute Lymphs (auto) (1.0-4.6) Absolute Monos (auto) (0.0-1.3) Lymphocytes % (24.0-44.0) % Monocytes % (0.0-12.0) % Eosinophils % (0.00-5.0) % Basophils % (0.0-0.4) % Absolute Granulocytes (1.4-6.9) Basophils # (0-0.4) PT (9.4-12.5) SECONDS INR (0.8-3.0) Sodium (137-145) mmol/L Potassium (3.5-5.1) mmol/L Chloride (98-107) mmol/L Carbon Dioxide (22-30) mmol/L Anion Gap (5-15) MEQ/L BUN (7-17) mg/dL Creatinine (0.52-1.04) mg/dL Estimated GFR ML/MIN Glucose (74-106) mg/dL POC Glucometer (74 to 106) mg/dL Lactic Acid (0.4-2.0) Calcium (8.4-10.2) mg/dL Magnesium (1.6-2.3) mg/dL Total Bilirubin (0.2-1.3) mg/dL AST (14-36) U/L ALT (0-35) U/L Alkaline Phosphatase (38-126) U/L Troponin I < 0.012 0.014 (0.000-0.034) ng/mL NT-Pro-B Natriuret Pep (0-900) pg/mL Serum Total Protein (6.3-8.2) g/dL Albumin (3.5-5.0) g/dL Triglycerides (30-150) mg/dL Cholesterol (50-200) mg/dL LDL Cholesterol (30-100) mg/dL HDL Cholesterol (40-60) mg/dL Heart Disease Risk Ratio Amylase (30-110) U/L Lipase (23-300) U/L Urinalys Dipstick Clnc Urine Color (YELLOW) Urine Appearance (CLEAR) Urine pH (5-6) Ur Specific [place] (1.005-1.025) POC Urine Protein Conf (Negative) Urine Ketones (NEGATIVE) Urine Nitrite (NEGATIVE) Urine Bilirubin (NEGATIVE) Urine Urobilinogen (0-1) mg/dL Urine Leukocytes (NEGATIVE) Urine WBC (Auto) (0-5) /HPF Urine RBC (Auto) (0-2) /HPF U Epithel Cells (Auto) (FEW) /HPF Urine Bacteria (Auto) (NEGATIVE) /HPF Urine RBC (0-5) Jens/ul Ur Culture Indicated? Urine Glucose (NEGATIVE) mg/dL Influenza Type A Ag NEGATIVE (NEGATIVE) Influenza Type B Ag NEGATIVE (NEGATIVE) RSV (PCR) NEGATIVE (Negative) SARS-CoV-2 (PCR) NEGATIVE (NEGATIVE) 09/13/21 09/13/21 09/13/21 Range/Units 06:10 06:10 07:10 WBC (4.0-10.5) K/mm3 RBC (4.1-5.4) M/mm3 Hgb (12.0-16.0) gm/dl Hct (35-47) % MCV (78-100) fl MCH (26-32) pg MCHC (32-36) g/dl RDW (11.5-14.0) % Plt Count (150-450) K/mm3 MPV (7.5-11.0) fl Gran % (36.0-66.0) % Eos # (Auto) (0-0.5) Absolute Lymphs (auto) (1.0-4.6) Absolute Monos (auto) (0.0-1.3) Lymphocytes % (24.0-44.0) % Monocytes % (0.0-12.0) % Eosinophils % (0.00-5.0) % Basophils % (0.0-0.4) % Absolute Granulocytes (1.4-6.9) Basophils # (0-0.4) PT (9.4-12.5) SECONDS INR (0.8-3.0) Sodium (137-145) mmol/L Potassium (3.5-5.1) mmol/L Chloride (98-107) mmol/L Carbon Dioxide (22-30) mmol/L Anion Gap (5-15) MEQ/L BUN (7-17) mg/dL Creatinine (0.52-1.04) mg/dL Estimated GFR ML/MIN Glucose (74-106) mg/dL POC Glucometer 192 H (74 to 106) mg/dL Lactic Acid (0.4-2.0) Calcium (8.4-10.2) mg/dL Magnesium (1.6-2.3) mg/dL Total Bilirubin (0.2-1.3) mg/dL AST (14-36) U/L ALT (0-35) U/L Alkaline Phosphatase (38-126) U/L Troponin I 0.027 (0.000-0.034) ng/mL NT-Pro-B Natriuret Pep (0-900) pg/mL Serum Total Protein (6.3-8.2) g/dL Albumin (3.5-5.0) g/dL Triglycerides 220 H (30-150) mg/dL Cholesterol 120 (50-200) mg/dL LDL Cholesterol 56 (30-100) mg/dL HDL Cholesterol 26 L (40-60) mg/dL Heart Disease Risk Ratio 4.6 Amylase (30-110) U/L Lipase (23-300) U/L Urinalys Dipstick Clnc Urine Color (YELLOW) Urine Appearance (CLEAR) Urine pH (5-6) Ur Specific [place] (1.005-1.025) POC Urine Protein Conf (Negative) Urine Ketones (NEGATIVE) Urine Nitrite (NEGATIVE) Urine Bilirubin (NEGATIVE) Urine Urobilinogen (0-1) mg/dL Urine Leukocytes (NEGATIVE) Urine WBC (Auto) (0-5) /HPF Urine RBC (Auto) (0-2) /HPF U Epithel Cells (Auto) (FEW) /HPF Urine Bacteria (Auto) (NEGATIVE) /HPF Urine RBC (0-5) Jens/ul Ur Culture Indicated? Urine Glucose (NEGATIVE) mg/dL Influenza Type A Ag (NEGATIVE) Influenza Type B Ag (NEGATIVE) RSV (PCR) (Negative) SARS-CoV-2 (PCR) (NEGATIVE) 09/13/21 09/13/21 Range/Units 09:00 11:34 WBC (4.0-10.5) K/mm3 RBC (4.1-5.4) M/mm3 Hgb (12.0-16.0) gm/dl Hct (35-47) % MCV (78-100) fl MCH (26-32) pg MCHC (32-36) g/dl RDW (11.5-14.0) % Plt Count (150-450) K/mm3 MPV (7.5-11.0) fl Gran % (36.0-66.0) % Eos # (Auto) (0-0.5) Absolute Lymphs (auto) (1.0-4.6) Absolute Monos (auto) (0.0-1.3) Lymphocytes % (24.0-44.0) % Monocytes % (0.0-12.0) % Eosinophils % (0.00-5.0) % Basophils % (0.0-0.4) % Absolute Granulocytes (1.4-6.9) Basophils # (0-0.4) PT (9.4-12.5) SECONDS INR (0.8-3.0) Sodium (137-145) mmol/L Potassium (3.5-5.1) mmol/L Chloride (98-107) mmol/L Carbon Dioxide (22-30) mmol/L Anion Gap (5-15) MEQ/L BUN (7-17) mg/dL Creatinine (0.52-1.04) mg/dL Estimated GFR ML/MIN Glucose (74-106) mg/dL POC Glucometer 247 H (74 to 106) mg/dL Lactic Acid (0.4-2.0) Calcium (8.4-10.2) mg/dL Magnesium (1.6-2.3) mg/dL Total Bilirubin (0.2-1.3) mg/dL AST (14-36) U/L ALT (0-35) U/L Alkaline Phosphatase (38-126) U/L Troponin I 0.029 (0.000-0.034) ng/mL NT-Pro-B Natriuret Pep (0-900) pg/mL Serum Total Protein (6.3-8.2) g/dL Albumin (3.5-5.0) g/dL Triglycerides (30-150) mg/dL Cholesterol (50-200) mg/dL LDL Cholesterol (30-100) mg/dL HDL Cholesterol (40-60) mg/dL Heart Disease Risk Ratio Amylase (30-110) U/L Lipase (23-300) U/L Urinalys Dipstick Clnc Urine Color (YELLOW) Urine Appearance (CLEAR) Urine pH (5-6) Ur Specific [place] (1.005-1.025) POC Urine Protein Conf (Negative) Urine Ketones (NEGATIVE) Urine Nitrite (NEGATIVE) Urine Bilirubin (NEGATIVE) Urine Urobilinogen (0-1) mg/dL Urine Leukocytes (NEGATIVE) Urine WBC (Auto) (0-5) /HPF Urine RBC (Auto) (0-2) /HPF U Epithel Cells (Auto) (FEW) /HPF Urine Bacteria (Auto) (NEGATIVE) /HPF Urine RBC (0-5) Jens/ul Ur Culture Indicated? Urine Glucose (NEGATIVE) mg/dL Influenza Type A Ag (NEGATIVE) Influenza Type B Ag (NEGATIVE) RSV (PCR) (Negative) SARS-CoV-2 (PCR) (NEGATIVE) Accuchecks Date 09/13/21 Date 09/13/21 Time 11:34 Time 07:10 - Radiology Impressions Radiology Exams & Impressions: Radiology Procedures Category Date Time Status CHEST 1 VIEW (PORTABLE) Stat Exams 09/12/21 20:43 Completed CHEST WITH CONTRAST [CT] Stat Exams 09/12/21 22:28 Completed - Other Procedures and Tests Respiratory Therapy 09/13/21 03:30 Oxygen Nasal Cannula 2 lpm 09/14/21 05:00 EKG ROUTINE 09/15/21 05:00 EKG ROUTINE Assessment/Plan (1) Chest pain Current Visit: Yes Status: Acute Qualifiers: Chest pain type: unspecified Qualified Code(s): R07.9 - Chest pain, unspecified Assessment & Plan: Acute on chronic. Troponins all wnl. EKG shows sinus bradycardia, RBBB, questionable LBBB, L axis deviation, no ST changes indicative of ischemia. Code(s): R07.9 - CHEST PAIN, UNSPECIFIED (2) Hypertension Current Visit: Yes Status: Chronic Qualifiers: Hypertension type: primary hypertension Qualified Code(s): I10 - Essential (primary) hypertension Code(s): I10 - ESSENTIAL (PRIMARY) HYPERTENSION (3) Diabetes type 2, uncontrolled Current Visit: No Status: Chronic Qualifiers: Glycemic state: with hyperglycemia Qualified Code(s): E11.65 - Type 2 diabetes mellitus with hyperglycemia Code(s): E11.65 - TYPE 2 DIABETES MELLITUS WITH HYPERGLYCEMIA Hospital Summary - Hospital Course Hospital Course: Pt is 70 yo female pt of Dr. Ernesto Cox with PMHx CAD, DM, HTN, and other comorbidities, admitted with CP to rule out MT. Her troponins were all in normal range. Her chest pain is decreased (pt notes she has chronic chest pain). She will be sent home today and will f/u outpatient with Dr. Cox and Dr. Tyson. - Vitals & Intake/Output Vital Signs: Vital Signs Temperature 97.3 F 09/13/21 11:54 Pulse Rate 54 L 09/13/21 11:54 Respiratory Rate 20 09/13/21 11:54 Blood Pressure 152/70 09/13/21 11:54 O2 Sat by Pulse Oximetry 100 09/13/21 11:54 Intake & Output: Intake & Output 09/11/21 09/12/21 09/13/21 09/14/21 11:59 11:59 11:59 11:59 Intake Total 1020 Balance 1020 Weight 95.3 kg - Lab Result Diagrams: 09/12/21 21:09 09/12/21 21:09 Lab Results-Last 24 Hrs: Lab Results-Last 24 Hours 09/12/21 09/12/21 09/12/21 Range/Units 21:09 21:09 21:09 WBC 6.2 (4.0-10.5) K/mm3 RBC 4.24 (4.1-5.4) M/mm3 Hgb 12.0 (12.0-16.0) gm/dl Hct 39.1 (35-47) % MCV 92.2 (78-100) fl MCH 28.3 (26-32) pg MCHC 30.7 L (32-36) g/dl RDW 18.9 H (11.5-14.0) % Plt Count 158 (150-450) K/mm3 MPV 11.9 H (7.5-11.0) fl Gran % 55.7 (36.0-66.0) % Eos # (Auto) 0.09 (0-0.5) Absolute Lymphs (auto) 2.09 (1.0-4.6) Absolute Monos (auto) 0.57 (0.0-1.3) Lymphocytes % 33.5 (24.0-44.0) % Monocytes % 9.1 (0.0-12.0) % Eosinophils % 1.4 (0.00-5.0) % Basophils % 0.3 (0.0-0.4) % Absolute Granulocytes 3.47 (1.4-6.9) Basophils # 0.02 (0-0.4) PT 12.3 (9.4-12.5) SECONDS INR 1.04 (0.8-3.0) Sodium 138 (137-145) mmol/L Potassium 4.2 (3.5-5.1) mmol/L Chloride 103 (98-107) mmol/L Carbon Dioxide 26 (22-30) mmol/L Anion Gap 13.0 (5-15) MEQ/L BUN 14 (7-17) mg/dL Creatinine 0.74 (0.52-1.04) mg/dL Estimated GFR > 60.0 ML/MIN Glucose 278 H (74-106) mg/dL POC Glucometer (74 to 106) mg/dL Lactic Acid (0.4-2.0) Calcium 9.2 (8.4-10.2) mg/dL Magnesium 1.7 (1.6-2.3) mg/dL Total Bilirubin 0.70 (0.2-1.3) mg/dL AST 27 (14-36) U/L ALT 25 (0-35) U/L Alkaline Phosphatase 81 (38-126) U/L Troponin I (0.000-0.034) ng/mL NT-Pro-B Natriuret Pep 120 (0-900) pg/mL Serum Total Protein 7.0 (6.3-8.2) g/dL Albumin 4.0 (3.5-5.0) g/dL Triglycerides (30-150) mg/dL Cholesterol (50-200) mg/dL LDL Cholesterol (30-100) mg/dL HDL Cholesterol (40-60) mg/dL Heart Disease Risk Ratio Amylase 53 (30-110) U/L Lipase 106 (23-300) U/L Urinalys Dipstick Clnc Urine Color (YELLOW) Urine Appearance (CLEAR) Urine pH (5-6) Ur Specific [place] (1.005-1.025) POC Urine Protein Conf (Negative) Urine Ketones (NEGATIVE) Urine Nitrite (NEGATIVE) Urine Bilirubin (NEGATIVE) Urine Urobilinogen (0-1) mg/dL Urine Leukocytes (NEGATIVE) Urine WBC (Auto) (0-5) /HPF Urine RBC (Auto) (0-2) /HPF U Epithel Cells (Auto) (FEW) /HPF Urine Bacteria (Auto) (NEGATIVE) /HPF Urine RBC (0-5) Jens/ul Ur Culture Indicated? Urine Glucose (NEGATIVE) mg/dL Influenza Type A Ag (NEGATIVE) Influenza Type B Ag (NEGATIVE) RSV (PCR) (Negative) SARS-CoV-2 (PCR) (NEGATIVE) 09/12/21 09/12/21 09/12/21 Range/Units 21:09 21:19 22:10 WBC (4.0-10.5) K/mm3 RBC (4.1-5.4) M/mm3 Hgb (12.0-16.0) gm/dl Hct (35-47) % MCV (78-100) fl MCH (26-32) pg MCHC (32-36) g/dl RDW (11.5-14.0) % Plt Count (150-450) K/mm3 MPV (7.5-11.0) fl Gran % (36.0-66.0) % Eos # (Auto) (0-0.5) Absolute Lymphs (auto) (1.0-4.6) Absolute Monos (auto) (0.0-1.3) Lymphocytes % (24.0-44.0) % Monocytes % (0.0-12.0) % Eosinophils % (0.00-5.0) % Basophils % (0.0-0.4) % Absolute Granulocytes (1.4-6.9) Basophils # (0-0.4) PT (9.4-12.5) SECONDS INR (0.8-3.0) Sodium (137-145) mmol/L Potassium (3.5-5.1) mmol/L Chloride (98-107) mmol/L Carbon Dioxide (22-30) mmol/L Anion Gap (5-15) MEQ/L BUN (7-17) mg/dL Creatinine (0.52-1.04) mg/dL Estimated GFR ML/MIN Glucose (74-106) mg/dL POC Glucometer (74 to 106) mg/dL Lactic Acid 1.3 (0.4-2.0) Calcium (8.4-10.2) mg/dL Magnesium (1.6-2.3) mg/dL Total Bilirubin (0.2-1.3) mg/dL AST (14-36) U/L ALT (0-35) U/L Alkaline Phosphatase (38-126) U/L Troponin I < 0.012 (0.000-0.034) ng/mL NT-Pro-B Natriuret Pep (0-900) pg/mL Serum Total Protein (6.3-8.2) g/dL Albumin (3.5-5.0) g/dL Triglycerides (30-150) mg/dL Cholesterol (50-200) mg/dL LDL Cholesterol (30-100) mg/dL HDL Cholesterol (40-60) mg/dL Heart Disease Risk Ratio Amylase (30-110) U/L Lipase (23-300) U/L Urinalys Dipstick Clnc MAIN LAB Urine Color YELLOW (YELLOW) Urine Appearance CLEAR (CLEAR) Urine pH 6.5 (5-6) Ur Specific [place] 1.020 (1.005-1.025) POC Urine Protein Conf TRACE (Negative) Urine Ketones NEGATIVE (NEGATIVE) Urine Nitrite NEGATIVE (NEGATIVE) Urine Bilirubin NEGATIVE (NEGATIVE) Urine Urobilinogen 0.2 (0-1) mg/dL Urine Leukocytes NEGATIVE (NEGATIVE) Urine WBC (Auto) 3-5 (0-5) /HPF Urine RBC (Auto) NONE (0-2) /HPF U Epithel Cells (Auto) RARE (FEW) /HPF Urine Bacteria (Auto) NONE SEEN (NEGATIVE) /HPF Urine RBC TRACE-INTACT (0-5) Jens/ul Ur Culture Indicated? YES Urine Glucose 250 (NEGATIVE) mg/dL Influenza Type A Ag (NEGATIVE) Influenza Type B Ag (NEGATIVE) RSV (PCR) (Negative) SARS-CoV-2 (PCR) (NEGATIVE) 09/12/21 09/13/21 09/13/21 Range/Units 23:30 00:20 03:14 WBC (4.0-10.5) K/mm3 RBC (4.1-5.4) M/mm3 Hgb (12.0-16.0) gm/dl Hct (35-47) % MCV (78-100) fl MCH (26-32) pg MCHC (32-36) g/dl RDW (11.5-14.0) % Plt Count (150-450) K/mm3 MPV (7.5-11.0) fl Gran % (36.0-66.0) % Eos # (Auto) (0-0.5) Absolute Lymphs (auto) (1.0-4.6) Absolute Monos (auto) (0.0-1.3) Lymphocytes % (24.0-44.0) % Monocytes % (0.0-12.0) % Eosinophils % (0.00-5.0) % Basophils % (0.0-0.4) % Absolute Granulocytes (1.4-6.9) Basophils # (0-0.4) PT (9.4-12.5) SECONDS INR (0.8-3.0) Sodium (137-145) mmol/L Potassium (3.5-5.1) mmol/L Chloride (98-107) mmol/L Carbon Dioxide (22-30) mmol/L Anion Gap (5-15) MEQ/L BUN (7-17) mg/dL Creatinine (0.52-1.04) mg/dL Estimated GFR ML/MIN Glucose (74-106) mg/dL POC Glucometer (74 to 106) mg/dL Lactic Acid (0.4-2.0) Calcium (8.4-10.2) mg/dL Magnesium (1.6-2.3) mg/dL Total Bilirubin (0.2-1.3) mg/dL AST (14-36) U/L ALT (0-35) U/L Alkaline Phosphatase (38-126) U/L Troponin I < 0.012 0.014 (0.000-0.034) ng/mL NT-Pro-B Natriuret Pep (0-900) pg/mL Serum Total Protein (6.3-8.2) g/dL Albumin (3.5-5.0) g/dL Triglycerides (30-150) mg/dL Cholesterol (50-200) mg/dL LDL Cholesterol (30-100) mg/dL HDL Cholesterol (40-60) mg/dL Heart Disease Risk Ratio Amylase (30-110) U/L Lipase (23-300) U/L Urinalys Dipstick Clnc Urine Color (YELLOW) Urine Appearance (CLEAR) Urine pH (5-6) Ur Specific [place] (1.005-1.025) POC Urine Protein Conf (Negative) Urine Ketones (NEGATIVE) Urine Nitrite (NEGATIVE) Urine Bilirubin (NEGATIVE) Urine Urobilinogen (0-1) mg/dL Urine Leukocytes (NEGATIVE) Urine WBC (Auto) (0-5) /HPF Urine RBC (Auto) (0-2) /HPF U Epithel Cells (Auto) (FEW) /HPF Urine Bacteria (Auto) (NEGATIVE) /HPF Urine RBC (0-5) Jens/ul Ur Culture Indicated? Urine Glucose (NEGATIVE) mg/dL Influenza Type A Ag NEGATIVE (NEGATIVE) Influenza Type B Ag NEGATIVE (NEGATIVE) RSV (PCR) NEGATIVE (Negative) SARS-CoV-2 (PCR) NEGATIVE (NEGATIVE) 09/13/21 09/13/21 09/13/21 Range/Units 06:10 06:10 07:10 WBC (4.0-10.5) K/mm3 RBC (4.1-5.4) M/mm3 Hgb (12.0-16.0) gm/dl Hct (35-47) % MCV (78-100) fl MCH (26-32) pg MCHC (32-36) g/dl RDW (11.5-14.0) % Plt Count (150-450) K/mm3 MPV (7.5-11.0) fl Gran % (36.0-66.0) % Eos # (Auto) (0-0.5) Absolute Lymphs (auto) (1.0-4.6) Absolute Monos (auto) (0.0-1.3) Lymphocytes % (24.0-44.0) % Monocytes % (0.0-12.0) % Eosinophils % (0.00-5.0) % Basophils % (0.0-0.4) % Absolute Granulocytes (1.4-6.9) Basophils # (0-0.4) PT (9.4-12.5) SECONDS INR (0.8-3.0) Sodium (137-145) mmol/L Potassium (3.5-5.1) mmol/L Chloride (98-107) mmol/L Carbon Dioxide (22-30) mmol/L Anion Gap (5-15) MEQ/L BUN (7-17) mg/dL Creatinine (0.52-1.04) mg/dL Estimated GFR ML/MIN Glucose (74-106) mg/dL POC Glucometer 192 H (74 to 106) mg/dL Lactic Acid (0.4-2.0) Calcium (8.4-10.2) mg/dL Magnesium (1.6-2.3) mg/dL Total Bilirubin (0.2-1.3) mg/dL AST (14-36) U/L ALT (0-35) U/L Alkaline Phosphatase (38-126) U/L Troponin I 0.027 (0.000-0.034) ng/mL NT-Pro-B Natriuret Pep (0-900) pg/mL Serum Total Protein (6.3-8.2) g/dL Albumin (3.5-5.0) g/dL Triglycerides 220 H (30-150) mg/dL Cholesterol 120 (50-200) mg/dL LDL Cholesterol 56 (30-100) mg/dL HDL Cholesterol 26 L (40-60) mg/dL Heart Disease Risk Ratio 4.6 Amylase (30-110) U/L Lipase (23-300) U/L Urinalys Dipstick Clnc Urine Color (YELLOW) Urine Appearance (CLEAR) Urine pH (5-6) Ur Specific [place] (1.005-1.025) POC Urine Protein Conf (Negative) Urine Ketones (NEGATIVE) Urine Nitrite (NEGATIVE) Urine Bilirubin (NEGATIVE) Urine Urobilinogen (0-1) mg/dL Urine Leukocytes (NEGATIVE) Urine WBC (Auto) (0-5) /HPF Urine RBC (Auto) (0-2) /HPF U Epithel Cells (Auto) (FEW) /HPF Urine Bacteria (Auto) (NEGATIVE) /HPF Urine RBC (0-5) Jens/ul Ur Culture Indicated? Urine Glucose (NEGATIVE) mg/dL Influenza Type A Ag (NEGATIVE) Influenza Type B Ag (NEGATIVE) RSV (PCR) (Negative) SARS-CoV-2 (PCR) (NEGATIVE) 09/13/21 09/13/21 Range/Units 09:00 11:34 WBC (4.0-10.5) K/mm3 RBC (4.1-5.4) M/mm3 Hgb (12.0-16.0) gm/dl Hct (35-47) % MCV (78-100) fl MCH (26-32) pg MCHC (32-36) g/dl RDW (11.5-14.0) % Plt Count (150-450) K/mm3 MPV (7.5-11.0) fl Gran % (36.0-66.0) % Eos # (Auto) (0-0.5) Absolute Lymphs (auto) (1.0-4.6) Absolute Monos (auto) (0.0-1.3) Lymphocytes % (24.0-44.0) % Monocytes % (0.0-12.0) % Eosinophils % (0.00-5.0) % Basophils % (0.0-0.4) % Absolute Granulocytes (1.4-6.9) Basophils # (0-0.4) PT (9.4-12.5) SECONDS INR (0.8-3.0) Sodium (137-145) mmol/L Potassium (3.5-5.1) mmol/L Chloride (98-107) mmol/L Carbon Dioxide (22-30) mmol/L Anion Gap (5-15) MEQ/L BUN (7-17) mg/dL Creatinine (0.52-1.04) mg/dL Estimated GFR ML/MIN Glucose (74-106) mg/dL POC Glucometer 247 H (74 to 106) mg/dL Lactic Acid (0.4-2.0) Calcium (8.4-10.2) mg/dL Magnesium (1.6-2.3) mg/dL Total Bilirubin (0.2-1.3) mg/dL AST (14-36) U/L ALT (0-35) U/L Alkaline Phosphatase (38-126) U/L Troponin I 0.029 (0.000-0.034) ng/mL NT-Pro-B Natriuret Pep (0-900) pg/mL Serum Total Protein (6.3-8.2) g/dL Albumin (3.5-5.0) g/dL Triglycerides (30-150) mg/dL Cholesterol (50-200) mg/dL LDL Cholesterol (30-100) mg/dL HDL Cholesterol (40-60) mg/dL Heart Disease Risk Ratio Amylase (30-110) U/L Lipase (23-300) U/L Urinalys Dipstick Clnc Urine Color (YELLOW) Urine Appearance (CLEAR) Urine pH (5-6) Ur Specific [place] (1.005-1.025) POC Urine Protein Conf (Negative) Urine Ketones (NEGATIVE) Urine Nitrite (NEGATIVE) Urine Bilirubin (NEGATIVE) Urine Urobilinogen (0-1) mg/dL Urine Leukocytes (NEGATIVE) Urine WBC (Auto) (0-5) /HPF Urine RBC (Auto) (0-2) /HPF U Epithel Cells (Auto) (FEW) /HPF Urine Bacteria (Auto) (NEGATIVE) /HPF Urine RBC (0-5) Jens/ul Ur Culture Indicated? Urine Glucose (NEGATIVE) mg/dL Influenza Type A Ag (NEGATIVE) Influenza Type B Ag (NEGATIVE) RSV (PCR) (Negative) SARS-CoV-2 (PCR) (NEGATIVE) Micro Results-Entire Visit: Accuchecks Date 09/13/21 Date 09/13/21 Time 11:34 Time 07:10 - Radiology Exams Ordered Rad Exams-Entire Visit: Radiology Procedures Category Date Time Status CHEST 1 VIEW (PORTABLE) Stat Exams 09/12/21 20:43 Completed CHEST WITH CONTRAST [CT] Stat Exams 09/12/21 22:28 Completed - Procedures and Test Procedures and Tests throughout Hospitalization: Therapy Orders & Screens 09/13/21 03:30 Oxygen Nasal Cannula 2 lpm Comment: Diagnosis: CP 09/13/21 05:00 EKG ROUTINE Comment: Diagnosis: CP 09/14/21 05:00 EKG ROUTINE Comment: Diagnosis: CP 09/15/21 05:00 EKG ROUTINE Comment: Diagnosis: CP - Discharge Disposition: Home, Self-Care Condition: Stable Prescriptions: No Action Lisinopril 5 mg [Zestril 5 MG] 2.5 mg PO DAILY Omeprazole 20 MG [Prilosec 20 mg] 20 mg PO DAILY Isosorbide Mononitrate 30 mg [Imdur 30 MG] 30 mg PO DAILY Famotidine 20 mg [Pepcid 20 MG] 20 mg PO BID Metformin HCl 500 mg PO BID Nitroglycerin 0.4 mg Tablet [Nitrostat 0.4 MG Tablet] 0.4 mg SL UD Glimepiride 4 mg [Amaryl 4 mg] 4 mg PO BID Atorvastatin Calcium [Lipitor] 40 mg PO DAILY Aspirin 81 mg PO DAILY Insulin Lispro [Humalog] 30 unit SQ TID Clopidogrel Bisulfate 75 mg [PLAVIX 75 MG Tablet] 75 mg PO DAILY Metoprolol Tartrate 50 mg [Lopressor 50 MG] 50 mg PO BID Insulin NPH Hum/Reg Insulin Hm [Relion Novolin 70-30 Flexpen] 55 units SQ BID clonazePAM [Clonazepam] 0.5 mg PO DAILY PRN PRN PRN Reason: Anxiety Desvenlafaxine [Desvenlafaxine ER] 50 mg PO DAILY Linaclotide [Linzess] 145 mcg PO DAILY PRN PRN Reason: Constipation Follow up with: MAYANK COX [Primary Care Provider] -
== END 2021-09-13 14:20 | disposition home or self-care (01) ==
LOC: ED 20:33 → MED SURG 09-13 01:47
PROVIDERS: ADMIT Family Medicine; ATTEND Family Medicine
DX: R07.9 Chest pain, unspecified (principal); I10 Essential (primary) hypertension; E11.65 Type 2 diabetes mellitus with hyperglycemia; I25.10 Atherosclerotic heart disease of native coronary artery without angina pectoris; I25.2 Old myocardial infarction; E78.5 Hyperlipidemia, unspecified; E03.9 Hypothyroidism, unspecified; Z79.899 Other long term (current) drug therapy; Z85.3 Personal history of malignant neoplasm of breast; Z85.118 Personal history of other malignant neoplasm of bronchus and lung
CPT/HCPCS: 0241U; 36415; 71045; 71260; 80053; 80061; 81015; 82150; 82947; 83605; 83690; 83721; 83735; 83880; 84484; 85025; 85610; 87086; 93005; 93268; 94760; 96372; 96374; 96375; 96376; 99285; 99291; G0378; J1650; J1815; J2405; J3010; A9270-GY

== ENCOUNTER 2021-10-06 22:30 | Emergency (ER) | payer MEDICARE ==
[2021-10-07 00:21] LABS: Absolute Neutrophil Ct (ANC) 3.86 (1.4-6.9); Basophil (Absolute #) 0.01 (0-0.4); Eosinophil (Absolute #) 0 (0-0.5); Hematocrit 44.8 % (35-47); Hemoglobin 14.1 gm/dl (12.0-16.0); Lymphocyte (Absolute #) 0.93 (1.0-4.6); Lymphocytes % 19.2 % (24.0-44.0); Mean Cell Volume 90.5 fl (78-100); Mean Corpuscular Hemoglobin 28.5 pg (26-32); Mean Corpuscular Hgb Concent. 31.5 g/dl (32-36); Mean Platelet Volume 12.7 fl (7.5-11.0); Monocyte (Absolute #) 0.05 (0.0-1.3); Neutrophil % 79.6 % (36.0-66.0); Platelet Count 148 K/mm3 (150-450); Red Blood Count 4.95 M/mm3 (4.1-5.4); Red Cell Distribution Width 17.5 % (11.5-14.0); White Blood Count 4.9 K/mm3 (4.0-10.5)
[2021-10-07 00:25] VITALS: O2SAT 98
[2021-10-07] MEDS ORDERED: NITRO-BID 2% UD PACKETS TOP ONE (00:29)
--- NOTE | 2021-10-07 00:29 | ERPHSYRPT ---
- History of Present Illness Time Seen by Provider: 10/06/21 23:15 Historian: patient Exam Limitations: no limitations Physician History: Patient is a 70-year-old female with a history of cardiac stents and sinus tachycardia requiring a cardiac ablation. Patient presents to our ED today with complaints of chest pain. Chest pain started while she was at home. Chest pain described as an ache that tends to radiate to her neck and down her left arm. Pain rated 5 out of 10. Pain associated with nausea and dizziness. No syncope. Symptoms have improved since arrival. Symptoms are mild to moderate in intensity. No specific worsening improving factors. Patient is a diabetic. Patient states her blood sugar at home was 325. Patient voices no other complaints or concerns at this time. Timing/Duration: today Activities at Onset: none Quality: aching Location: substernal Chest Pain Radiation: neck, arm Severity of Pain-Max: moderate Severity of Pain-Current: mild Associated Symptoms: nausea, dizziness Prior Chest Pain/Cardiac Workup: cardiac cath Nitro Today/Relief: no nitro taken today Aspirin Treatment Today: 81 mg x 1 Allergies/Adverse Reactions: hydromorphone [From Dilaudid] Allergy (Severe, Verified 10/07/21 00:57) sulfamethoxazole [From Sulfamethoxazole-Trimethoprim] Allergy (Intermediate, Verified 10/07/21 00:57) trimethoprim [From Sulfamethoxazole-Trimethoprim] Allergy (Intermediate, Verified 10/07/21 00:57) acetaminophen [From Darvocet-N 100] Allergy (Verified 10/07/21 00:57) "SHUTS DOWN MY SYSTEM" amoxicillin [From Augmentin] Allergy (Verified 10/07/21 00:57) clavulanic acid [From Augmentin] Allergy (Verified 10/07/21 00:57) codeine Allergy (Verified 10/07/21 00:57) "SHUTS MY SYSTEMS DOWN" nalbuphine HCl [From Nubain] Allergy (Verified 10/07/21 00:57) "SHUTS MY SYSTEM DOWN" propoxyphene napsylate [From Darvocet-N 100] Allergy (Verified 10/07/21 00:57) "SHUTS DOWN MY SYSTEM" gabapentin [From Neurontin] Adverse Reaction (Verified 10/07/21 00:57) surgical tape Allergy (Uncoded 10/07/21 00:57) Home Medications: Isosorbide Mononitrate 30 mg [Imdur 30 MG] 30 mg PO DAILY 03/20/13 [History] Lisinopril 5 mg [Zestril 5 MG] 2.5 mg PO DAILY 03/20/13 [History] Omeprazole 20 MG [Prilosec 20 mg] 20 mg PO DAILY 03/20/13 [History] Famotidine 20 mg [Pepcid 20 MG] 20 mg PO BID 11/22/17 [History] Glimepiride 4 mg [Amaryl 4 mg] 4 mg PO BID 11/22/17 [History] Metformin HCl 500 mg PO BID 11/22/17 [History] Nitroglycerin 0.4 mg Tablet [Nitrostat 0.4 MG Tablet] 0.4 mg SL UD 11/22/17 [History] Atorvastatin Calcium [Lipitor] 40 mg PO DAILY 07/24/19 [History] Aspirin 81 mg PO DAILY 10/29/20 [History] Clopidogrel Bisulfate 75 mg [PLAVIX 75 MG Tablet] 75 mg PO DAILY 10/29/20 [History] Insulin Lispro [Humalog] 30 unit SQ TID 10/29/20 [History] Desvenlafaxine [Desvenlafaxine ER] 50 mg PO DAILY 09/12/21 [History] Insulin NPH Hum/Reg Insulin Hm [Relion Novolin 70-30 Flexpen] 55 units SQ BID 09/12/21 [History] Metoprolol Tartrate 50 mg [Lopressor 50 MG] 50 mg PO BID 09/12/21 [History] clonazePAM [Clonazepam] 0.5 mg PO DAILY PRN PRN 09/12/21 [History] Linaclotide [Linzess] 145 mcg PO DAILY PRN 09/13/21 [History] Hx Tetanus, Diphtheria Vaccination/Date Given: Yes Hx Influenza Vaccination/Date Given: Yes Hx Pneumococcal Vaccination/Date Given: Yes Travel Risk - Vaccine Status Have you recieved a Covid-19 vaccination: Yes Ore [employer]her: Moderna - Vaccination Dates Date of 2cond Vaccination (if applicable): 07/28/20 - Review of Systems Constitutional: No Symptoms, No Fever, No Chills Eyes: No Symptoms Ears, Nose, & Throat: No Symptoms Respiratory: No Symptoms, No Cough, No Dyspnea Cardiac: No Symptoms, No Chest Pain, No Edema, No Syncope Abdominal/Gastrointestinal: No Symptoms, No Abdominal Pain, No Nausea, No Vomiting, No Diarrhea Genitourinary Symptoms: No Symptoms, No Dysuria Musculoskeletal: No Symptoms, No Back Pain, No Neck Pain Skin: No Symptoms, No Rash Neurological: No Symptoms, No Dizziness, No Focal Weakness, No Sensory Changes Psychological: No Symptoms Endocrine: No Symptoms Hematologic/Lymphatic: No Symptoms Immunological/Allergic: No Symptoms All Other Systems: Reviewed and Negative - Past Medical History Pertinent Past Medical History: Yes Neurological History: No Pertinent History ENT History: Cataracts Cardiac History: Coronary Artery Disease, High Cholesterol, Hypertension, Myocardial Infarction ([place]) Respiratory History: COPD, Lung Cancer, Sleep Apnea Endocrine Medical History: Diabetes Type II, Hypothyroidism Musculoskeletal History: Arthritis, Fibromyalgia GI Medical History: Diverticulitis, GERD, Hernia, Irritable Bowel History: No Pertinent History Psycho-Social History: Depression Female Reproductive Disorders: Breast Cancer Other Medical History: BACK SURGERY LAMINECTOMY L4-L5 1987. BILATERAL CARPAL TUNNEL SURGERY. THORACIC OUTLET SURGERY. PARTIAL COLECTOMY DUE TO DIVERTICULITIS - Past Surgical History Past Surgical History: Yes Neuro Surgical History: No Pertinent History Cardiac: No Pertinent History, Cardiac Catheterization, Cardiac Stent Respiratory: Lobectomy Gastrointestinal: Appendectomy, Cholecystectomy, Colon Resection, Hernia Repair Genitourinary: No Pertinent History Musculoskeletal: Other Female Surgical History: Hysterectomy, Other Other Surgical History: partial right mastectomy. carpal tunnel. EGD. Colonoscopy. - Social History Smoking Status: Former smoker Exposure to second hand smoke: No Drug Use: none Patient Lives Alone: No - Nursing Vital Signs Nursing Vital Signs: Initial Vital Signs O2 Sat by Pulse Oximetry 98 10/06/21 22:59 Pain Scale Pain Intensity 4 - Physical Exam General Appearance: no apparent distress, alert Eye Exam: PERRL/EOMI, eyes nml inspection Ears, Nose, Throat Exam: normal ENT inspection, TMs normal, pharynx normal, moist mucous membranes Neck Exam: normal inspection, non-tender, supple, full range of motion Respiratory Exam: normal breath sounds, lungs clear, airway intact, No respiratory distress Cardiovascular Exam: regular rate/rhythm, normal heart sounds, normal peripheral pulses Gastrointestinal/Abdomen Exam: soft, No tenderness, No mass Back Exam: normal inspection, No CVA tenderness, No vertebral tenderness Extremity Exam: normal inspection, normal range of motion Neurologic Exam: alert, oriented x 3, cooperative, normal mood/affect, sensation nml, No motor deficits Skin Exam: normal color, warm, dry Lymphatic Exam: No adenopathy SpO2 Interpretation: normal SpO2: 98 O2 Delivery: Room Air - Course Nursing assessment & vital signs reviewed: Yes EKG Interpreted by Me: RATE (138), Sinus Rhythm, NORMAL AXIS, NORMAL INTERVALS - Radiology Exams Chest X-ray Interpretation: Interpreted by me (Clear lungs. Normal cardiac silho uette. Intact bony thorax. Osteopenia) Ordered Tests: Active Orders 24 hr Category Date Time Status [employer] Director STAT Care 10/06/21 22:59 Active EKG-ER Only STAT Care 10/06/21 22:59 Active IV Insertion STAT Care 10/06/21 22:59 Active Pulse Oximetry (ED) STAT Care 10/06/21 22:59 Active CHEST 1 VIEW (PORTABLE) Stat Exams 10/06/21 22:59 Taken CBC W DIFF Stat Lab 10/06/21 23:55 Completed CMP Stat Lab 10/06/21 23:55 Completed PT INR [PROTIME WITH INR] Stat Lab 10/07/21 03:50 Completed PTT Stat Lab 10/07/21 03:50 Completed TROPONIN Q3H Lab 10/06/21 23:55 Completed TROPONIN Q3H Lab 10/07/21 02:08 Completed Transfer Order Routine Transfer 10/07/21 Ordered Medication Summary Generic Name Dose Route Start Last Admin Trade Name Freq PRN Reason Stop Dose Admin Heparin Sodium/Dextrose 25,000 units in 250 mls @ 10 mls/hr 10/07/21 04:30 10/07/21 04:07 Heparin 25,000 Units/D5w 250ml Premix IV 11/06/21 04:29 10 mls/hr .Q24H ERIC 10 mls/hr Administration Discontinued Medications Generic Name Dose Route Start Last Admin Trade Name Freq PRN Reason Stop Dose Admin Aspirin 243 mg 10/07/21 00:30 10/07/21 00:34 Aspirin 81 Mg Tab.Chew PO 10/07/21 00:31 243 mg STAT ONE Administration Heparin Sodium (Beef Lung) Confirm 10/07/21 03:42 Heparin Lock Flush Pf 500 Units/5 Ml Syringe Administered 10/07/21 03:43 Dose 500 units .ROUTE .STK-MED ONE Heparin Sodium (Beef Lung) 5,000 unit 10/07/21 04:01 10/07/21 04:06 Heparin 5000 Unit/0.5 Ml Syringe IV 10/07/21 04:02 5,000 unit STAT ONE Administration Heparin Sodium (Beef Lung) Confirm 10/07/21 04:05 Heparin 5000 Unit/0.5 Ml Syringe Administered 10/07/21 04:06 Dose 5,000 unit .ROUTE .STK-MED ONE Heparin Sodium/Dextrose Confirm 10/07/21 03:43 Heparin 25,000 Units/D5w 250ml Premix Administered 10/07/21 03:44 Dose 25,000 units in 250 mls @ ud IV .STK-MED ONE Nitroglycerin 1 gm 10/07/21 00:29 10/07/21 00:34 Nitroglycerin 1 Gm Packet TOP 10/07/21 00:30 1 gm STAT ONE Administration Nitroglycerin Confirm 10/07/21 00:33 Nitroglycerin 1 Gm Packet Administered 10/07/21 00:34 Dose 1 gm .ROUTE .STK-MED ONE Lab/Rad Data: Laboratory Result Diagrams 10/06/21 23:55 10/06/21 23:55 Laboratory Results 10/07/21 10/07/21 10/07/21 Range/Units 03:50 02:08 02:08 WBC (4.0-10.5) K/mm3 RBC (4.1-5.4) M/mm3 Hgb (12.0-16.0) gm/dl Hct (35-47) % MCV (78-100) fl MCH (26-32) pg MCHC (32-36) g/dl RDW (11.5-14.0) % Plt Count (150-450) K/mm3 MPV (7.5-11.0) fl Gran % (36.0-66.0) % Eos # (Auto) (0-0.5) Absolute Lymphs (auto) (1.0-4.6) Absolute Monos (auto) (0.0-1.3) Lymphocytes % (24.0-44.0) % Monocytes % (0.0-12.0) % Eosinophils % (0.00-5.0) % Basophils % (0.0-0.4) % Absolute Granulocytes (1.4-6.9) Basophils # (0-0.4) PT 12.6 H (9.4-12.5) SECONDS INR 1.07 (0.8-3.0) APTT 30.8 (25.1-36.5) SECONDS Sodium (137-145) mmol/L Potassium (3.5-5.1) mmol/L Chloride (98-107) mmol/L Carbon Dioxide (22-30) mmol/L Anion Gap (5-15) MEQ/L BUN (7-17) mg/dL Creatinine (0.52-1.04) mg/dL Estimated GFR ML/MIN Glucose (74-106) mg/dL Calcium (8.4-10.2) mg/dL Total Bilirubin (0.2-1.3) mg/dL AST (14-36) U/L ALT (0-35) U/L Alkaline Phosphatase (38-126) U/L Troponin I 0.052 H* (0.000-0.034) ng/mL Serum Total Protein (6.3-8.2) g/dL Albumin (3.5-5.0) g/dL Influenza Type A Ag NEGATIVE (NEGATIVE) Influenza Type B Ag NEGATIVE (NEGATIVE) RSV (PCR) NEGATIVE (Negative) SARS-CoV-2 (PCR) NEGATIVE (NEGATIVE) 10/06/21 10/06/21 10/06/21 Range/Units 23:55 23:55 23:55 WBC 4.9 (4.0-10.5) K/mm3 RBC 4.95 (4.1-5.4) M/mm3 Hgb 14.1 (12.0-16.0) gm/dl Hct 44.8 (35-47) % MCV 90.5 (78-100) fl MCH 28.5 (26-32) pg MCHC 31.5 L (32-36) g/dl RDW 17.5 H (11.5-14.0) % Plt Count 148 L (150-450) K/mm3 MPV 12.7 H (7.5-11.0) fl Gran % 79.6 H (36.0-66.0) % Eos # (Auto) 0 (0-0.5) Absolute Lymphs (auto) 0.93 L (1.0-4.6) Absolute Monos (auto) 0.05 (0.0-1.3) Lymphocytes % 19.2 L (24.0-44.0) % Monocytes % 1.0 (0.0-12.0) % Eosinophils % 0.0 (0.00-5.0) % Basophils % 0.2 (0.0-0.4) % Absolute Granulocytes 3.86 (1.4-6.9) Basophils # 0.01 (0-0.4) PT (9.4-12.5) SECONDS INR (0.8-3.0) APTT (25.1-36.5) SECONDS Sodium 140 (137-145) mmol/L Potassium 4.5 (3.5-5.1) mmol/L Chloride 100 (98-107) mmol/L Carbon Dioxide 27 (22-30) mmol/L Anion Gap 17.9 H (5-15) MEQ/L BUN 12 (7-17) mg/dL Creatinine 0.94 (0.52-1.04) mg/dL Estimated GFR > 60.0 ML/MIN Glucose 370 H (74-106) mg/dL Calcium 9.5 (8.4-10.2) mg/dL Total Bilirubin 0.90 (0.2-1.3) mg/dL AST 28 (14-36) U/L ALT 24 (0-35) U/L Alkaline Phosphatase 96 (38-126) U/L Troponin I < 0.012 (0.000-0.034) ng/mL Serum Total Protein 7.9 (6.3-8.2) g/dL Albumin 4.6 (3.5-5.0) g/dL Influenza Type A Ag (NEGATIVE) Influenza Type B Ag (NEGATIVE) RSV (PCR) (Negative) SARS-CoV-2 (PCR) (NEGATIVE) - Progress Progress: improved Air Movement: good Progress Note: We attempted to transfer patient to [facility] where her dispatcher chief oil, Dr. Tyson is on staff however they have no beds available. 10/07/21 01:41 Patient reassessed. Tachycardia resolved. Initial troponin negative. Second troponin positive. Heparin drip initiated. COVID test negative. Case discussed with Dr. Rodriguez who accepts admission to observation. 10/07/21 03:40 [facility] notified us and is ready to received patient. He canceled her admission here at [facility]. Patient request was to be transferred to [facility]. Portions of this note were created with voice recognition technology. There may be grammatical, spelling, punctuation or sound alike errors 10/07/21 05:23 Blood Culture(s) Obtained: No Antibiotics given: No Discussed with : Ulises Will see patient in: hospital (observation) Counseled pt/family regarding: lab results, diagnosis, rad results - Departure Departure Disposition: Transfer Clinical Impression: Chest pain, ACS (acute coronary syndrome), Sinus tachycardia, NSTEMI (non-ST elevated myocardial infarction) Condition: Stable Critical Care Time: No Referrals: MAYANK COX [Primary Care Provider] - Follow up/PCP as directed
[2021-10-07] MEDS ORDERED: BABY ASPIRIN 81 MG CHEW PO ONE (00:30)
[2021-10-07] MEDS ORDERED: NITRO-BID 2% UD PACKETS ONE (00:33)
[2021-10-07 00:56] LABS: ALBUMIN 4.6 g/dL (3.5-5.0); ALKALINE PHOSPHATASE 96 U/L (38-126); ANION GAP 17.9 MEQ/L (5-15); BLOOD UREA NITROGEN 12 mg/dL (7-17); CHLORIDE 100 mmol/L (98-107); Calcium 9.5 mg/dL (8.4-10.2); Carbon Dioxide 27 mmol/L (22-30); Creatinine 1 0.94 mg/dL (0.52-1.04); EST GLOMERULAR FILTRATION RATE > 60.0 ML/MIN; Glucose 370 mg/dL (74-106); Potassium 4.5 mmol/L (3.5-5.1); SGOT/AST 28 U/L (14-36); SGPT/ALT 24 U/L (0-35); SODIUM 140 mmol/L (137-145); Total Protein 7.9 g/dL (6.3-8.2)
[2021-10-07 02:47] LABS: INFLUENZA A NEGATIVE (NEGATIVE); INFLUENZA B NEGATIVE (NEGATIVE); RESPIRATORY SYNCTIAL VIRUS NEGATIVE (Negative); SARS-CoV-2 Xpert Express NEGATIVE (NEGATIVE)
[2021-10-07] MEDS ORDERED: Heparin 25,000 units/D5W 250ML PREMIX 25,000 UNITS/250 ML BAG IV ONE (03:43)
[2021-10-07] MEDS ORDERED: Heparin 5000 UNITS/0.5 ML (HIGH RISK MED) IV ONE (04:01)
[2021-10-07] MEDS ORDERED: Heparin 5000 UNITS/0.5 ML (HIGH RISK MED) ONE (04:05)
[2021-10-07 04:16] LABS: INR 1.07 (0.8-3.0); PROTIME 12.6 SECONDS (9.4-12.5)
[2021-10-07 04:18] LABS: PTT 30.8 SECONDS (25.1-36.5)
[2021-10-07] MEDS ORDERED: Heparin 25,000 units/D5W 250ML PREMIX 25,000 UNITS/250 ML BAG IV SCH (04:30)
[2021-10-07 05:27] VITALS: BP 186/85; PULSE 68
--- NOTE | 2021-10-07 09:04 | XRAY ---
Indication: Chest pain. Comparison: September 12, 2021. Portable chest unchanged again clear with chronic right hemidiaphragm elevation and right Port-A-Cath. Heart not enlarged. No new/acute abnormalities.
== END 2021-10-07 05:25 | disposition short-term general hospital (02) ==
LOC: ED 22:30
DX: I21.4 Non-ST elevation (NSTEMI) myocardial infarction (principal); I24.9 Acute ischemic heart disease, unspecified; R00.0 Tachycardia, unspecified; R07.9 Chest pain, unspecified; R11.0 Nausea; R42 Dizziness and giddiness; E78.5 Hyperlipidemia, unspecified; I10 Essential (primary) hypertension; J44.9 Chronic obstructive pulmonary disease, unspecified; E11.65 Type 2 diabetes mellitus with hyperglycemia; Z79.01 Long term (current) use of anticoagulants; Z79.4 Long term (current) use of insulin; Z79.899 Other long term (current) drug therapy
CPT/HCPCS: 0241U; 36000; 36415; 71045; 80053; 84484; 85025; 85610; 85730; 93005; 93041; 94760; 96374; 99285; J1642; J1644; A9270-GY

== ENCOUNTER 2022-08-21 17:38 | Observation (INO) | payer MEDICARE ==
--- NOTE | 2022-08-21 18:08 | ERPHSYRPT ---
<LINDA SANDERS - Last Filed: 08/21/22 18:52> - History of Present Illness Time Seen by Provider: 08/21/22 17:55 Historian: patient Exam Limitations: no limitations Patient Subjective Stated Complaint: C/O chest pain that started about 30 minutes prior to coming to the ER. States the pain awoke her from a sleep. Triage Nursing Assessment: Patient brought back to ER in a W/C. She is alert and oriented. She is wearing oxygen per n/c upon arrival; always wears this at home. No SOB noted. Skin tone normal. CALL WNL. No edema. Physician History: Patient is a 71-year-old white female who presents with a complaint of chest pain which started 30 minutes prior to arrival. The pain is sharp and pleuritic in nature and substernal in location. It does not radiate. She was awakened from sleep by her pain. She is on chronic O2 per nasal cannula and arrived on 2 L which is her standard at home. She also complained of some dizziness she has taken an 81 mg aspirin today and she took 2 nitroglycerin which did help somewhat. She rated her pain initially as 5 of 10 but by the end of our exam said she did not need any pain medicine. She has a history of 2 previous MIs and 2 stents and one ablation. Timing/Duration: today Activities at Onset: sleep Quality: sharpness, other (Pleuritic in nature) Location: substernal Chest Pain Radiation: no radiation Severity of Pain-Max: moderate Severity of Pain-Current: none Nitro Today/Relief: 0.4 mg x 2 Aspirin Treatment Today: 81 mg x 1 Allergies/Adverse Reactions: hydromorphone [From Dilaudid] Allergy (Severe, Verified 08/21/22 17:46) sulfamethoxazole [From Sulfamethoxazole-Trimethoprim] Allergy (Intermediate, Verified 08/21/22 17:46) trimethoprim [From Sulfamethoxazole-Trimethoprim] Allergy (Intermediate, Verified 08/21/22 17:46) acetaminophen [From Darvocet-N 100] Allergy (Verified 08/21/22 17:46) "SHUTS DOWN MY SYSTEM" amoxicillin [From Augmentin] Allergy (Verified 08/21/22 17:46) clavulanic acid [From Augmentin] Allergy (Verified 08/21/22 17:46) codeine Allergy (Verified 08/21/22 17:46) "SHUTS MY SYSTEMS DOWN" nalbuphine HCl [From Nubain] Allergy (Verified 08/21/22 17:46) "SHUTS MY SYSTEM DOWN" propoxyphene napsylate [From Darvocet-N 100] Allergy (Verified 08/21/22 17:46) "SHUTS DOWN MY SYSTEM" gabapentin [From Neurontin] Adverse Reaction (Verified 08/21/22 17:46) surgical tape Allergy (Uncoded 08/21/22 17:46) Home Medications: Omeprazole 20 MG [Prilosec 20 mg] 20 mg PO DAILY 03/20/13 [History] Glimepiride 4 mg [Amaryl 4 mg] 4 mg PO BID 11/22/17 [History] Metformin HCl 500 mg PO BID 11/22/17 [History] Nitroglycerin 0.4 mg Tablet [Nitrostat 0.4 MG Tablet] 0.4 mg SL UD 11/22/17 [History] Atorvastatin Calcium [Lipitor] 40 mg PO DAILY 07/24/19 [History] Aspirin 81 mg PO DAILY 10/29/20 [History] Clopidogrel Bisulfate [PLAVIX Tablet] 75 mg PO DAILY 10/29/20 [History] Insulin Lispro [Humalog] 30 unit SQ TID 10/29/20 [History] Desvenlafaxine [Desvenlafaxine ER] 50 mg PO DAILY 09/12/21 [History] Carvedilol 3.125 mg [Coreg 3.125 MG] 1 tab PO BID 08/21/22 [History] Docusate Sodium [Colace] 1 cap PO DAILY 08/21/22 [History] Fluoxetine HCl [Prozac] 1 cap PO DAILY 08/21/22 [History] Insulin NPH Human Recom [Novolin N] 60 unit SQ BID 08/21/22 [History] Meclizine HCl 25 mg [Antivert 25 mg] 1 tab PO TID 08/21/22 [History] Hx Tetanus, Diphtheria Vaccination/Date Given: Yes Hx Influenza Vaccination/Date Given: Yes Hx Pneumococcal Vaccination/Date Given: Yes Immunizations Up to Date: Yes Travel Risk - International Travel Have you traveled outside of the country in past 3 weeks: No - Coronavirus Screening Are you exhibiting any of the following symptoms?: No Close contact with a COVID-19 positive Pt in past 14-21 Days: No - Vaccine Status Have you recieved a Covid-19 vaccination: Yes [employer]: Moderna - Vaccination Dates Date of 2cond Vaccination (if applicable): 07/28/20 - Review of Systems Constitutional: No Fever, No Chills Eyes: No Symptoms Ears, Nose, & Throat: No Symptoms Respiratory: No Cough, No Dyspnea Cardiac: Chest Pain, No Edema, No Syncope Abdominal/Gastrointestinal: No Abdominal Pain, No Nausea, No Vomiting, No Diarrhea Genitourinary Symptoms: No Dysuria Musculoskeletal: No Back Pain, No Neck Pain Skin: No Rash Neurological: No Dizziness, No Focal Weakness, No Sensory Changes Psychological: No Symptoms Endocrine: No Symptoms All Other Systems: Reviewed and Negative - Past Medical History Pertinent Past Medical History: Yes Neurological History: No Pertinent History ENT History: Cataracts Cardiac History: Coronary Artery Disease, High Cholesterol, Hypertension, Myocardial Infarction ([place]) Respiratory History: COPD, Lung Cancer, Sleep Apnea Endocrine Medical History: Diabetes Type II, Hypothyroidism Musculoskeletal History: Arthritis, Fibromyalgia GI Medical History: Diverticulitis, GERD, Hernia, Irritable Bowel History: No Pertinent History Psycho-Social History: Depression Female Reproductive Disorders: Breast Cancer Other Medical History: BACK SURGERY LAMINECTOMY L4-L5 1987. BILATERAL CARPAL TUNNEL SURGERY. THORACIC OUTLET SURGERY. PARTIAL COLECTOMY DUE TO DIVERTICULITIS - Past Surgical History Past Surgical History: Yes Neuro Surgical History: No Pertinent History Cardiac: No Pertinent History, Cardiac Catheterization, Cardiac Stent Respiratory: Lobectomy Gastrointestinal: Appendectomy, Cholecystectomy, Colon Resection, Hernia Repair Genitourinary: No Pertinent History Musculoskeletal: Other Female Surgical History: Hysterectomy, Other Other Surgical History: BACK SURGERY LAMINECTOMY L4-L5 1987, BILATERAL CARPAL TUNNEL SURGERY, THORACIC OUTLET SURGERY, PARTIAL COLECTOMY DUE TO DIVERTICULITIS, partial right mastectomy. - Social History Smoking Status: Former smoker Exposure to second hand smoke: No Drug Use: none Patient Lives Alone: No - Physical Exam General Appearance: mild distress Eye Exam: PERRL/EOMI, eyes nml inspection Ears, Nose, Throat Exam: normal ENT inspection Neck Exam: normal inspection, non-tender, supple, full range of motion Respiratory Exam: normal breath sounds, lungs clear, No respiratory distress Cardiovascular Exam: regular rate/rhythm, normal heart sounds Gastrointestinal/Abdomen Exam: soft, No tenderness, No mass Back Exam: normal inspection, No CVA tenderness, No vertebral tenderness Extremity Exam: normal inspection, normal range of motion Neurologic Exam: alert, oriented x 3, cooperative, normal mood/affect, sensation nml, No motor deficits Skin Exam: normal color, warm, dry SpO2 Interpretation: O2 applied SpO2: 100 O2 Delivery: Nasal Cannula (2 L) - Course Nursing assessment & vital signs reviewed: Yes EKG Interpreted by Me: RATE (64), Sinus Rhythm, LAFB, Right Bundle Branch Block, Non-specific ST Changes - Progress Progress: unchanged Air Movement: fair Blood Culture(s) Obtained: No Antibiotics given: No Medical Desision Making - Diagnostic Testing Radiological Interpretation: Interpreted by me - Departure Departure Disposition: Home Clinical Impression: Chest pain, Diabetes type 2, uncontrolled, CAD (coronary artery disease) Condition: Stable Critical Care Time: No Referrals: MAYANK COX [ACTIVE STAFF] - Follow up/PCP as directed Instructions: Chest Pain (DC) <MARILYN ENNIS - Last Filed: 08/21/22 21:54> - Nursing Vital Signs Nursing Vital Signs: Initial Vital Signs Temperature 97.3 F 08/21/22 17:46 Pulse Rate 62 08/21/22 17:46 Respiratory Rate 18 08/21/22 17:46 Blood Pressure 156/75 08/21/22 17:46 O2 Sat by Pulse Oximetry 100 08/21/22 17:46 Pain Scale Pain Intensity 2 Ordered Tests: Active Orders 24 hr Category Date Time Status Bedrest with BRP/BSC ROUTINE Activity 08/21/22 21:42 Active Call Admit Doctor for Orders ROUTINE Care 08/21/22 21:41 Active Safety Instruction Police Officer STAT Care 08/21/22 17:56 Active Code Status Order ROUTINE Care 08/21/22 21:42 Active EKG-ER Only STAT Care 08/21/22 17:55 Active IV Care Q6H Care 08/21/22 21:42 Active IV Insertion STAT Care 08/21/22 17:55 Active Implement Chest Pain Pathway ROUTINE Care 08/21/22 21:42 Active Oxygen-ED Only Nasal Cannula 2 lpm Care 08/21/22 17:[address] in Observation ROUTINE Care 08/21/22 21:43 Active [place] Od[place], Apply ROUTINE Care 08/21/22 21:42 Active Telemetry q6h Care 08/21/22 21:41 Active Weight,Daily 0600 Care 08/21/22 21:42 Active Heart-Healthy Diet Diet 08/22/22 Breakfast Active CHEST 1 VIEW (PORTABLE) Stat Exams 08/21/22 17:56 Completed ECHO W/2D AND DOPPLER [US] Routine Exams 08/21/22 21:41 Ordered CBC W DIFF Stat Lab 08/21/22 18:14 Completed CMP Stat Lab 08/21/22 18:14 Completed D-DIMER QUANTITATIVE Stat Lab 08/21/22 18:14 Completed LIPASE Stat Lab 08/21/22 18:14 Completed LIPID PROFILE AM.LAB Lab 08/22/22 04:00 Ordered Lactic Acid Stat Lab 08/21/22 18:20 Completed MAGNESIUM Stat Lab 08/21/22 18:14 Completed NT PRO BNPII Stat Lab 08/21/22 18:14 Completed PROTIME WITH INR Stat Lab 08/21/22 18:14 Completed PTT Stat Lab 08/21/22 18:14 Completed TROPONIN Q4H Lab 08/21/22 18:14 Completed TROPONIN Q4H Lab 08/21/22 20:49 Completed TROPONIN Q4H Lab 08/22/22 02:00 Ordered UA W/RFX UR CULTURE Stat Lab 08/21/22 20:13 Ordered EKG Q8HX2,QAMX3,PRN RT 08/21/22 21:42 Active EKG STAT RT 08/21/22 19:22 Active Pulse Oximetry Q4H RT 08/21/22 21:42 Active Transfer Order Routine Transfer 08/21/22 Ordered Medication Summary Generic Name Dose Route Start Last Admin Trade Name Freq PRN Reason Stop Dose Admin Acetaminophen 650 mg 08/21/22 21:41 Acetaminophen 325 Mg Tablet PO 09/20/22 21:40 Q4H PRN PRN PAIN AND/OR FEVER Al Hydrox/Mg Hydrox/Simethicone 30 ml 08/21/22 21:41 Mag Hydrox/Al Hydrox/Simeth 30 Ml Udcup PO 09/20/22 21:40 Q4H PRN PRN INDIGESTION Enoxaparin Sodium 40 mg 08/22/22 10:00 Enoxaparin Sodium 40 Mg/0.4 Ml Syringe SQ 09/21/22 09:59 DAILY ERIC Famotidine 20 mg 08/21/22 22:00 Famotidine 20 Mg/1 Vial IV 09/20/22 21:59 Q12HT ERIC Sodium Chloride 1,000 mls @ 50 mls/hr 08/21/22 18:00 08/21/22 19:19 Sodium Chloride 0.9% 1000 Ml IV 09/20/22 17:59 50 mls/hr .Q20H ERIC Administration Magnesium Hydroxide 30 - 60 ml 08/21/22 21:41 Magnesium Hydroxide 30 Ml Udcup PO 09/20/22 21:40 QDP PRN CONSTIPATION Nitroglycerin 0.4 mg 08/21/22 21:41 Nitroglycerin 0.4 Mg Tablet Bottle SL 09/20/22 21:40 .Q5MIN PRN CHEST PAIN Ondansetron HCl 4 mg 08/21/22 21:41 Ondansetron Hcl 4 Mg/2 Ml Vial IV 09/20/22 21:40 Q4H PRN PRN NAUSEA/VOMITING Senna/Docusate Sodium 2 udtab 08/21/22 21:41 Senna/Docusate Sodium 1 Udtab Tablet PO 09/20/22 21:40 BID PRN PRN CONSTIPATION Discontinued Medications Generic Name Dose Route Start Last Admin Trade Name Freq PRN Reason Stop Dose Admin Morphine Sulfate 2 mg 08/21/22 19:22 08/21/22 19:26 Morphine Sulfate 2 Mg/Ml Inj IV 08/21/22 19:23 2 mg STAT ONE Administration Morphine Sulfate Confirm 08/21/22 19:25 Morphine Sulfate 2 Mg/Ml Inj Administered 08/21/22 19:26 Dose 2 mg .ROUTE .STK-MED ONE Lab/Rad Data: Laboratory Result Diagrams 08/21/22 18:14 08/21/22 18:14 Laboratory Results 08/21/22 08/21/22 08/21/22 Range/Units 20:49 19:59 18:20 WBC (4.0-10.5) x10^3/uL RBC (4.1-5.4) x10^6/uL Hgb (12.0-16.0) g/dL Hct (35-47) % MCV (78-100) fL MCH (26-32) pg MCHC (32-36) g/dL RDW (11.5-14.0) % Plt Count (150-450) x10^3/uL MPV (7.5-11.0) fL Gran % (36.0-66.0) % Immature Gran % (Auto) (0.00-0.4) % Nucleat RBC Rel Count (0.00-0.1) % Eos # (Auto) (0-0.5) x10^3/uL Immature Gran # (Auto) (0.00-0.03) x10^3u/L Absolute Lymphs (auto) (1.0-4.6) x10^3/uL Absolute Monos (auto) (0.0-1.3) x10^3/uL Absolute Nucleated RBC (0.00-0.01) x10^3u/L Lymphocytes % (24.0-44.0) % Monocytes % (0.0-12.0) % Eosinophils % (0.00-5.0) % Basophils % (0.0-0.4) % Absolute Granulocytes (1.4-6.9) x10^3/uL Basophils # (0-0.4) x10^3/uL PT (9.4-12.5) SECONDS INR (0.8-3.0) APTT (25.1-36.5) SECONDS D-Dimer (0.0-0.50) mg/L Sodium (137-145) mmol/L Potassium (3.5-5.1) mmol/L Chloride (98-107) mmol/L Carbon Dioxide (22-30) mmol/L Anion Gap (5-15) MEQ/L BUN (7-17) mg/dL Creatinine (0.52-1.04) mg/dL Estimated GFR ML/MIN Glucose (74-106) mg/dL Lactic Acid 1.4 (0.4-2.0) Calcium (8.4-10.2) mg/dL Magnesium (1.6-2.3) mg/dL Total Bilirubin (0.2-1.3) mg/dL AST (14-36) U/L ALT (0-35) U/L Alkaline Phosphatase (38-126) U/L Troponin I < 0.012 (0.000-0.034) ng/mL NT-Pro-B Natriuret Pep (<300) pg/mL Serum Total Protein (6.3-8.2) g/dL Albumin (3.5-5.0) g/dL Lipase (23-300) U/L Influenza Type A Ag NEGATIVE (NEGATIVE) Influenza Type B Ag NEGATIVE (NEGATIVE) RSV (PCR) NEGATIVE (NEGATIVE) SARS-CoV-2 (PCR) NEGATIVE (NEGATIVE) 08/21/22 08/21/22 08/21/22 Range/Units 18:14 18:14 18:14 WBC (4.0-10.5) x10^3/uL RBC (4.1-5.4) x10^6/uL Hgb (12.0-16.0) g/dL Hct (35-47) % MCV (78-100) fL MCH (26-32) pg MCHC (32-36) g/dL RDW (11.5-14.0) % Plt Count (150-450) x10^3/uL MPV (7.5-11.0) fL Gran % (36.0-66.0) % Immature Gran % (Auto) (0.00-0.4) % Nucleat RBC Rel Count (0.00-0.1) % Eos # (Auto) (0-0.5) x10^3/uL Immature Gran # (Auto) (0.00-0.03) x10^3u/L Absolute Lymphs (auto) (1.0-4.6) x10^3/uL Absolute Monos (auto) (0.0-1.3) x10^3/uL Absolute Nucleated RBC (0.00-0.01) x10^3u/L Lymphocytes % (24.0-44.0) % Monocytes % (0.0-12.0) % Eosinophils % (0.00-5.0) % Basophils % (0.0-0.4) % Absolute Granulocytes (1.4-6.9) x10^3/uL Basophils # (0-0.4) x10^3/uL PT 10.6 (9.4-12.5) SECONDS INR 0.97 (0.8-3.0) APTT 29.9 (25.1-36.5) SECONDS D-Dimer 0.50 (0.0-0.50) mg/L Sodium 143 (137-145) mmol/L Potassium 4.2 (3.5-5.1) mmol/L Chloride 102 (98-107) mmol/L Carbon Dioxide 29 (22-30) mmol/L Anion Gap 15.3 H (5-15) MEQ/L BUN 5 L (7-17) mg/dL Creatinine 0.57 (0.52-1.04) mg/dL Estimated GFR > 60.0 ML/MIN Glucose 111 H (74-106) mg/dL Lactic Acid (0.4-2.0) Calcium 8.6 (8.4-10.2) mg/dL Magnesium 1.7 (1.6-2.3) mg/dL Total Bilirubin 0.60 (0.2-1.3) mg/dL AST 31 (14-36) U/L ALT 33 (0-35) U/L Alkaline Phosphatase 72 (38-126) U/L Troponin I < 0.012 (0.000-0.034) ng/mL NT-Pro-B Natriuret Pep 89.3 (<300) pg/mL Serum Total Protein 7.1 (6.3-8.2) g/dL Albumin 4.0 (3.5-5.0) g/dL Lipase 117 (23-300) U/L Influenza Type A Ag (NEGATIVE) Influenza Type B Ag (NEGATIVE) RSV (PCR) (NEGATIVE) SARS-CoV-2 (PCR) (NEGATIVE) 08/21/22 Range/Units 18:14 WBC 6.3 (4.0-10.5) x10^3/uL RBC 4.26 (4.1-5.4) x10^6/uL Hgb 12.8 (12.0-16.0) g/dL Hct 40.3 (35-47) % MCV 94.6 (78-100) fL MCH 30.0 (26-32) pg MCHC 31.8 L (32-36) g/dL RDW 13.2 (11.5-14.0) % Plt Count 169 (150-450) x10^3/uL MPV 11.7 H (7.5-11.0) fL Gran % 45.7 (36.0-66.0) % Immature Gran % (Auto) 0.2 (0.00-0.4) % Nucleat RBC Rel Count 0.0 (0.00-0.1) % Eos # (Auto) 0.15 (0-0.5) x10^3/uL Immature Gran # (Auto) 0.01 (0.00-0.03) x10^3u/L Absolute Lymphs (auto) 2.71 (1.0-4.6) x10^3/uL Absolute Monos (auto) 0.53 (0.0-1.3) x10^3/uL Absolute Nucleated RBC 0.00 (0.00-0.01) x10^3u/L Lymphocytes % 42.7 (24.0-44.0) % Monocytes % 8.4 (0.0-12.0) % Eosinophils % 2.4 (0.00-5.0) % Basophils % 0.6 (0.0-0.4) % Absolute Granulocytes 2.90 (1.4-6.9) x10^3/uL Basophils # 0.04 (0-0.4) x10^3/uL PT (9.4-12.5) SECONDS INR (0.8-3.0) APTT (25.1-36.5) SECONDS D-Dimer (0.0-0.50) mg/L Sodium (137-145) mmol/L Potassium (3.5-5.1) mmol/L Chloride (98-107) mmol/L Carbon Dioxide (22-30) mmol/L Anion Gap (5-15) MEQ/L BUN (7-17) mg/dL Creatinine (0.52-1.04) mg/dL Estimated GFR ML/MIN Glucose (74-106) mg/dL Lactic Acid (0.4-2.0) Calcium (8.4-10.2) mg/dL Magnesium (1.6-2.3) mg/dL Total Bilirubin (0.2-1.3) mg/dL AST (14-36) U/L ALT (0-35) U/L Alkaline Phosphatase (38-126) U/L Troponin I (0.000-0.034) ng/mL NT-Pro-B Natriuret Pep (<300) pg/mL Serum Total Protein (6.3-8.2) g/dL Albumin (3.5-5.0) g/dL Lipase (23-300) U/L Influenza Type A Ag (NEGATIVE) Influenza Type B Ag (NEGATIVE) RSV (PCR) (NEGATIVE) SARS-CoV-2 (PCR) (NEGATIVE) - Progress Progress Note: 08/21/22 19:35 Patient complaining of increased CP, initial EKG and Troponin neg. Repeated EKG similar to previous. D-dimer neg, no need for CTA. Patient has a heart score of 7 and will benefit from observation for ACS r/o. Will discuss w/ hospitalist for admission. 08/21/22 19:52 Spoke w/ Dr. Marroquin, telehospitalist regarding admission, will wait until next troponin results to decide if we can admit or need to transfer. 08/21/22 21:48 2nd troponin neg, hospitalist accepts for observation. Discussed with Dr.: Other (Dr. Marroquin) Will see patient in: hospital (observation) Counseled pt/family regarding: lab results, diagnosis, rad results Medical Desision Making - Discussion of managment Care discussed with:: hospitalist Reviewed:: Test results, Need for additional workup Agreed on:: Treatment plan, place in obs Will see patient: in hospital - Diagnostic Testing Diagnostic test were ordered, analyzed, and reviewed by me: Yes - Risk of complications The pt has a high risk of morbidity or mortality based on: Decision regarding hospitilization or escalation of hosp level of care - Departure Departure Disposition: Observation
[2022-08-21 18:17] LABS: BASOPHIL % 0.6 % (0.0-0.4); Basophil (Absolute #) 0.04 x10^3/uL (0-0.4); Eosinophil % 2.4 % (0.00-5.0); Eosinophil (Absolute #) 0.15 x10^3/uL (0-0.5); Hematocrit 40.3 % (35-47); Hemoglobin 12.8 g/dL (12.0-16.0); IMMATURE GRAN # 0.01 x10^3u/L (0.00-0.03); IMMATURE GRAN % 0.2 % (0.00-0.4); Lymphocyte (Absolute #) 2.71 x10^3/uL (1.0-4.6); Lymphocytes % 42.7 % (24.0-44.0); Mean Cell Volume 94.6 fL (78-100); Mean Corpuscular Hgb Concent. 31.8 g/dL (32-36); Mean Platelet Volume 11.7 fL (7.5-11.0); Monocyte (Absolute #) 0.53 x10^3/uL (0.0-1.3); Monocytes % 8.4 % (0.0-12.0); Neutrophil % 45.7 % (36.0-66.0); Platelet Count 169 x10^3/uL (150-450); Red Blood Count 4.26 x10^6/uL (4.1-5.4); Red Cell Distribution Width 13.2 % (11.5-14.0); White Blood Count 6.3 x10^3/uL (4.0-10.5)
[2022-08-21 18:38] LABS: ALKALINE PHOSPHATASE 72 U/L (38-126); ANION GAP 15.3 MEQ/L (5-15); BLOOD UREA NITROGEN 5 mg/dL (7-17); CHLORIDE 102 mmol/L (98-107); Calcium 8.6 mg/dL (8.4-10.2); Carbon Dioxide 29 mmol/L (22-30); Creatinine 1 0.57 mg/dL (0.52-1.04); EST GLOMERULAR FILTRATION RATE > 60.0 ML/MIN; Glucose 111 mg/dL (74-106); LIPASE 117 U/L (23-300); MAGNESIUM 1.7 mg/dL (1.6-2.3); NT PRO BNPII 89.3 pg/mL (<300); Potassium 4.2 mmol/L (3.5-5.1); SGOT/AST 31 U/L (14-36); SGPT/ALT 33 U/L (0-35); SODIUM 143 mmol/L (137-145); Total Protein 7.1 g/dL (6.3-8.2)
[2022-08-21 18:49] LABS: D-DIMER QUANTITATIVE 0.5 mg/L (0.0-0.50); INR 0.97 (0.8-3.0); PROTIME 10.6 SECONDS (9.4-12.5); PTT 29.9 SECONDS (25.1-36.5)
[2022-08-21] MEDS: Sodium Chloride 0.9% 1000 ML 1,000 ML IV SCH ×2 (19:19→23:25)
[2022-08-21] MEDS ORDERED: MORPHINE SULFATE 2 MG INJ IV ONE (19:22)
[2022-08-21] MEDS ORDERED: MORPHINE SULFATE 2 MG INJ ONE (19:25)
--- NOTE | 2022-08-21 20:36 | XRAY ---
Indication: Chest pain. History lung cancer. Comparison: October 07, 2021 Portable chest remains inflated and clear with again incidental mild right hemidiaphragm elevation. Heart not enlarged again with right Port-A-Cath. Bony thorax intact again with osteopenia and mild degenerative changes. Impression: Continued nonacute chest with chronic features.
[2022-08-21 21:05] LABS: INFLUENZA A NEGATIVE (NEGATIVE); INFLUENZA B NEGATIVE (NEGATIVE); RESPIRATORY SYNCTIAL VIRUS NEGATIVE (NEGATIVE); SARS-CoV-2 Xpert Express NEGATIVE (NEGATIVE)
[2022-08-21] MEDS ORDERED: TYLENOL 325 MG PO PRN (21:41)
[2022-08-21] MEDS ORDERED: Senokot-S Tablet PO PRN (21:41)
[2022-08-21] MEDS ORDERED: Zofran 4 MG/2 ML VIAL IV PRN (21:41)
[2022-08-21] MEDS ORDERED: MAALOX ES 30 ML UNIT DOSE PO PRN (21:41)
[2022-08-21] MEDS ORDERED: MILK OF MAGNESIA 30 ML PO PRN (21:41)
[2022-08-21] MEDS ORDERED: Nitrostat 0.4 MG Tablet SL PRN (21:41)
[2022-08-21] MEDS: Pepcid 20 MG VIAL IV SCH (23:29)
[2022-08-22] MEDS ORDERED: Docusate Sodium 100 MG PO PRN (01:03)
--- NOTE | 2022-08-22 01:10 | PCM.HP ---
History of Present Illness - Chief Complaint Chief Complaint: Chest Pain Date: 08/22/22 History of Present Illness: This is a 71-year-old female admitted for evaluation of chest pain. She has past medical history of breast cancer s/p mastectomy, diverticulitis s/p partial colectomy, lung cancer s/p RLL lobectomy, GERD, IDDM, fibromyalgia, COPD 2L, ALTAF on CPAP 8cmH20, hyperlipidemia, coronary artery disease status post PCI most recently 10/18, hypertension. She presented to the ED this evening for evaluation of chest pain that started approximately 30 minutes before her arrival that awoke her from her sleep she reported the pain was sharp and substernal with no radiation. She reported taking an aspirin and 2 nitro which did help but when she walked to the bathroom pain re-occured. In the ER she reported her pain completely resolved. During my eval tonight she reports several seconds of sharp pain in chest but this was in a more lateral location in her left chest. She deneis any recent fever, chills, cough, n/v/d Her labs were significant for WBC of 6.3, hemoglobin 12.8, platelets 169, INR 1.97, creatinine 0.57, troponin negative at 18:14 and 20:49. Flu and RSV and COVID were negative. D-dimer 0.5. Chest x-ray no acute findings. - Review of Systems Cardiac: Chest Pain All Other Systems: Reviewed and Negative Medications & Allergies Home Medications: Home Medication List Omeprazole 20 MG [Prilosec 20 mg] 20 mg PO DAILY 03/20/13 [History Confirmed 08/21/22] Glimepiride 4 mg [Amaryl 4 mg] 4 mg PO BID 11/22/17 [History Confirmed 08/21/22] Metformin HCl 500 mg PO BID 11/22/17 [History Confirmed 08/21/22] Nitroglycerin 0.4 mg Tablet [Nitrostat 0.4 MG Tablet] 0.4 mg SL UD 11/22/17 [History Confirmed 08/21/22] Atorvastatin Calcium [Lipitor] 40 mg PO DAILY 07/24/19 [History Confirmed 08/21/22] Aspirin 81 mg PO DAILY 10/29/20 [History Confirmed 08/21/22] Clopidogrel Bisulfate [PLAVIX Tablet] 75 mg PO DAILY 10/29/20 [History Confirmed 08/21/22] Insulin Lispro [Humalog] 30 unit SQ TID 10/29/20 [History Confirmed 08/21/22] Desvenlafaxine [Desvenlafaxine ER] 50 mg PO DAILY 09/12/21 [History Confirmed 08/21/22] Carvedilol 3.125 mg [Coreg 3.125 MG] 1 tab PO BID 08/21/22 [History Confirmed 08/21/22] Docusate Sodium [Colace] 1 cap PO DAILY 08/21/22 [History Confirmed 08/21/22] Fluoxetine HCl [Prozac] 1 cap PO DAILY 08/21/22 [History Confirmed 08/21/22] Insulin NPH Human Recom [Novolin N] 60 unit SQ BID 08/21/22 [History Confirmed 08/21/22] Meclizine HCl 25 mg [Antivert 25 mg] 1 tab PO TID 08/21/22 [History Confirmed 08/21/22] Allergies/Adverse Reactions: Allergies Allergy/AdvReac Type Severity Reaction Status Date / Time hydromorphone [From Dilaudid] Allergy Severe Verified 08/21/22 17:46 sulfamethoxazole Allergy Intermediate Verified 08/21/22 17:46 [From Sulfamethoxazole-Trimethoprim] trimethoprim Allergy Intermediate Verified 08/21/22 17:46 [From Sulfamethoxazole-Trimethoprim] acetaminophen Allergy "SHUTS Verified 08/21/22 17:46 [From Darvocet-N 100] DOWN MY SYSTEM" amoxicillin [From Augmentin] Allergy Verified 08/21/22 17:46 clavulanic acid Allergy Verified 08/21/22 17:46 [From Augmentin] codeine Allergy "SHUTS MY Verified 08/21/22 17:46 SYSTEMS DOWN" nalbuphine HCl [From Nubain] Allergy "SHUTS MY Verified 08/21/22 17:46 SYSTEM DOWN" propoxyphene napsylate Allergy "SHUTS Verified 08/21/22 17:46 [From Darvocet-N 100] DOWN MY SYSTEM" gabapentin [From Neurontin] AdvReac Verified 08/21/22 17:46 surgical tape Allergy Uncoded 08/21/22 17:46 - Past Medical History Past Medical History: Yes Neurological History: No Pertinent History ENT History: Cataracts Cardiac History: Congestive Heart Failure, Hypertension, Myocardial Infarction ([place]) Respiratory History: CHF, COPD, Lung Cancer Endocrine Medical History: Diabetes Type II Musculoskelatal History: Arthritis, Fractures GI Medical History: Diverticulitis, Diverticulosis, Gallbladder Disease History: No Pertinent History Pyscho-Social History: No Pertinent History Reproductive Disorders: Breast Cancer, Fibroids Comment: BACK SURGERY LAMINECTOMY L4-L5 1987. BILATERAL CARPAL TUNNEL SURGERY. THORACIC OUTLET SURGERY. PARTIAL COLECTOMY DUE TO DIVERTICULITIS - Female History Are you now?: No (N/A) - Past Surgical History Past Surgical History: Yes Neuro Surgical History: No Pertinent History Cardiac History: Cardiac Stent Respiratory Surgery: Lobectomy GI Surgical History: Cholecystectomy, Colon Resection Genitourinary Surgical Hx: No Pertinent History Musculskeletal Surgical Hx: Other Female Surgical History: Hysterectomy, Mastectomy Other Surgical History: BACK SURGERY LAMINECTOMY L4-L5 1987, BILATERAL CARPAL TUNNEL SURGERY, THORACIC OUTLET SURGERY, PARTIAL COLECTOMY DUE TO DIVERTICULITIS, partial right mastectomy. - Social History Smoking Status: Former smoker How long have you smoked: 50 years Exposure to second hand smoke: No Alcohol: None Drug Use: none - Physical Exam Vital Signs: Vital Signs - 24 hr Temp Pulse Resp BP Pulse Ox 08/22/22 00:00 97.8 F 78 20 106/59 98 08/21/22 22:06 97.0 F 57 L 20 139/66 99 08/21/22 21:00 56 L 16 153/71 99 08/21/22 20:00 60 18 99 08/21/22 19:00 62 18 154/93 98 08/21/22 18:54 100 08/21/22 18:39 58 L 16 144/85 99 08/21/22 17:46 97.3 F 62 18 156/75 100 General Appearance: no apparent distress Neurologic Exam: alert, oriented x 3 Eye Exam: PERRL/EOMI Ears, Nose, Throat Exam: moist mucous membranes Neck Exam: normal inspection Respiratory Exam: normal breath sounds, lungs clear Cardiovascular Exam: regular rate/rhythm, normal heart sounds Gastrointestinal/Abdomen Exam: soft, normal bowel sounds, No tenderness Pelvic Exam: not done Extremity Exam: normal inspection, No swelling, No tenderness Skin Exam: normal color, warm, dry, No rash Results - Labs Lab/Micro Results: Lab Results-Last 24 Hours 08/21/22 08/21/22 08/21/22 Range/Units 18:14 18:14 18:14 WBC 6.3 (4.0-10.5) x10^3/uL RBC 4.26 (4.1-5.4) x10^6/uL Hgb 12.8 (12.0-16.0) g/dL Hct 40.3 (35-47) % MCV 94.6 (78-100) fL MCH 30.0 (26-32) pg MCHC 31.8 L (32-36) g/dL RDW 13.2 (11.5-14.0) % Plt Count 169 (150-450) x10^3/uL MPV 11.7 H (7.5-11.0) fL Gran % 45.7 (36.0-66.0) % Immature Gran % (Auto) 0.2 (0.00-0.4) % Nucleat RBC Rel Count 0.0 (0.00-0.1) % Eos # (Auto) 0.15 (0-0.5) x10^3/uL Immature Gran # (Auto) 0.01 (0.00-0.03) x10^3u/L Absolute Lymphs (auto) 2.71 (1.0-4.6) x10^3/uL Absolute Monos (auto) 0.53 (0.0-1.3) x10^3/uL Absolute Nucleated RBC 0.00 (0.00-0.01) x10^3u/L Lymphocytes % 42.7 (24.0-44.0) % Monocytes % 8.4 (0.0-12.0) % Eosinophils % 2.4 (0.00-5.0) % Basophils % 0.6 (0.0-0.4) % Absolute Granulocytes 2.90 (1.4-6.9) x10^3/uL Basophils # 0.04 (0-0.4) x10^3/uL PT 10.6 (9.4-12.5) SECONDS INR 0.97 (0.8-3.0) APTT 29.9 (25.1-36.5) SECONDS D-Dimer 0.50 (0.0-0.50) mg/L Sodium 143 (137-145) mmol/L Potassium 4.2 (3.5-5.1) mmol/L Chloride 102 (98-107) mmol/L Carbon Dioxide 29 (22-30) mmol/L Anion Gap 15.3 H (5-15) MEQ/L BUN 5 L (7-17) mg/dL Creatinine 0.57 (0.52-1.04) mg/dL Estimated GFR > 60.0 ML/MIN Glucose 111 H (74-106) mg/dL POC Glucometer (74 to 106) mg/dL Lactic Acid (0.4-2.0) Calcium 8.6 (8.4-10.2) mg/dL Magnesium 1.7 (1.6-2.3) mg/dL Total Bilirubin 0.60 (0.2-1.3) mg/dL AST 31 (14-36) U/L ALT 33 (0-35) U/L Alkaline Phosphatase 72 (38-126) U/L Troponin I (0.000-0.034) ng/mL NT-Pro-B Natriuret Pep 89.3 (<300) pg/mL Serum Total Protein 7.1 (6.3-8.2) g/dL Albumin 4.0 (3.5-5.0) g/dL Lipase 117 (23-300) U/L Influenza Type A Ag (NEGATIVE) Influenza Type B Ag (NEGATIVE) RSV (PCR) (NEGATIVE) SARS-CoV-2 (PCR) (NEGATIVE) 08/21/22 08/21/22 08/21/22 Range/Units 18:14 18:20 19:59 WBC (4.0-10.5) x10^3/uL RBC (4.1-5.4) x10^6/uL Hgb (12.0-16.0) g/dL Hct (35-47) % MCV (78-100) fL MCH (26-32) pg MCHC (32-36) g/dL RDW (11.5-14.0) % Plt Count (150-450) x10^3/uL MPV (7.5-11.0) fL Gran % (36.0-66.0) % Immature Gran % (Auto) (0.00-0.4) % Nucleat RBC Rel Count (0.00-0.1) % Eos # (Auto) (0-0.5) x10^3/uL Immature Gran # (Auto) (0.00-0.03) x10^3u/L Absolute Lymphs (auto) (1.0-4.6) x10^3/uL Absolute Monos (auto) (0.0-1.3) x10^3/uL Absolute Nucleated RBC (0.00-0.01) x10^3u/L Lymphocytes % (24.0-44.0) % Monocytes % (0.0-12.0) % Eosinophils % (0.00-5.0) % Basophils % (0.0-0.4) % Absolute Granulocytes (1.4-6.9) x10^3/uL Basophils # (0-0.4) x10^3/uL PT (9.4-12.5) SECONDS INR (0.8-3.0) APTT (25.1-36.5) SECONDS D-Dimer (0.0-0.50) mg/L Sodium (137-145) mmol/L Potassium (3.5-5.1) mmol/L Chloride (98-107) mmol/L Carbon Dioxide (22-30) mmol/L Anion Gap (5-15) MEQ/L BUN (7-17) mg/dL Creatinine (0.52-1.04) mg/dL Estimated GFR ML/MIN Glucose (74-106) mg/dL POC Glucometer (74 to 106) mg/dL Lactic Acid 1.4 (0.4-2.0) Calcium (8.4-10.2) mg/dL Magnesium (1.6-2.3) mg/dL Total Bilirubin (0.2-1.3) mg/dL AST (14-36) U/L ALT (0-35) U/L Alkaline Phosphatase (38-126) U/L Troponin I < 0.012 (0.000-0.034) ng/mL NT-Pro-B Natriuret Pep (<300) pg/mL Serum Total Protein (6.3-8.2) g/dL Albumin (3.5-5.0) g/dL Lipase (23-300) U/L Influenza Type A Ag NEGATIVE (NEGATIVE) Influenza Type B Ag NEGATIVE (NEGATIVE) RSV (PCR) NEGATIVE (NEGATIVE) SARS-CoV-2 (PCR) NEGATIVE (NEGATIVE) 08/21/22 08/21/22 Range/Units 20:49 22:21 WBC (4.0-10.5) x10^3/uL RBC (4.1-5.4) x10^6/uL Hgb (12.0-16.0) g/dL Hct (35-47) % MCV (78-100) fL MCH (26-32) pg MCHC (32-36) g/dL RDW (11.5-14.0) % Plt Count (150-450) x10^3/uL MPV (7.5-11.0) fL Gran % (36.0-66.0) % Immature Gran % (Auto) (0.00-0.4) % Nucleat RBC Rel Count (0.00-0.1) % Eos # (Auto) (0-0.5) x10^3/uL Immature Gran # (Auto) (0.00-0.03) x10^3u/L Absolute Lymphs (auto) (1.0-4.6) x10^3/uL Absolute Monos (auto) (0.0-1.3) x10^3/uL Absolute Nucleated RBC (0.00-0.01) x10^3u/L Lymphocytes % (24.0-44.0) % Monocytes % (0.0-12.0) % Eosinophils % (0.00-5.0) % Basophils % (0.0-0.4) % Absolute Granulocytes (1.4-6.9) x10^3/uL Basophils # (0-0.4) x10^3/uL PT (9.4-12.5) SECONDS INR (0.8-3.0) APTT (25.1-36.5) SECONDS D-Dimer (0.0-0.50) mg/L Sodium (137-145) mmol/L Potassium (3.5-5.1) mmol/L Chloride (98-107) mmol/L Carbon Dioxide (22-30) mmol/L Anion Gap (5-15) MEQ/L BUN (7-17) mg/dL Creatinine (0.52-1.04) mg/dL Estimated GFR ML/MIN Glucose (74-106) mg/dL POC Glucometer 51 L (74 to 106) mg/dL Lactic Acid (0.4-2.0) Calcium (8.4-10.2) mg/dL Magnesium (1.6-2.3) mg/dL Total Bilirubin (0.2-1.3) mg/dL AST (14-36) U/L ALT (0-35) U/L Alkaline Phosphatase (38-126) U/L Troponin I < 0.012 (0.000-0.034) ng/mL NT-Pro-B Natriuret Pep (<300) pg/mL Serum Total Protein (6.3-8.2) g/dL Albumin (3.5-5.0) g/dL Lipase (23-300) U/L Influenza Type A Ag (NEGATIVE) Influenza Type B Ag (NEGATIVE) RSV (PCR) (NEGATIVE) SARS-CoV-2 (PCR) (NEGATIVE) - Radiology Impressions Radiology Exams & Impressions: Radiology Procedures Category Date Time Status CHEST 1 VIEW (PORTABLE) Stat Exams 08/21/22 17:56 Completed ECHO W/2D AND DOPPLER [US] Routine Exams 08/21/22 22:07 Ordered - Other Procedures and Tests Respiratory Therapy 08/22/22 00:50 EKG ROUTINE 08/22/22 00:57 BiPap/CPAP QHS 08/22/22 00:59 Oxygen Nasal Cannula 2 lpm 08/22/22 05:00 EKG DAILY 08/23/22 05:00 EKG DAILY 08/24/22 05:00 EKG DAILY 08/25/22 05:00 EKG DAILY Assessment/Plan (1) Chest pain Current Visit: Yes Status: Acute Qualifiers: Code(s): R07.9 - CHEST PAIN, UNSPECIFIED (2) Diabetes type 2, uncontrolled Current Visit: Yes Status: Chronic Qualifiers: Assessment & Plan: #Chest pain, rule out cardiac etiology -Trend trops. Negative thus far. -Consider CT chest #H/O CAD s/p PCI x2 most recently september 2021 -Continue ASA, Plavis #Recent UTI s/p abx #COPD -Continue Oxygen. Not on inhalers #ALTAF -Continue CPAP #Fibromyalgia -Continue Pristiq, start Prozac when home dose obtained #DM: -Continue home insulin regimen #FEN: PO diet PPX: Lovenox Entire encounter performed via telemdicine Full Code Gomez Macias Code(s): E11.65 - TYPE 2 DIABETES MELLITUS WITH HYPERGLYCEMIA Telemedicine Encounter - Telemedicine Encounter Telemedicine Encounter: The entirety of this encounter was performed via Telemedicine"
[2022-08-22 05:38] LABS: Hematocrit 39.7 % (35-47); Hemoglobin 12.3 g/dL (12.0-16.0); Mean Cell Volume 95.4 fL (78-100); Mean Corpuscular Hemoglobin 29.6 pg (26-32); Mean Platelet Volume 11.8 fL (7.5-11.0); Platelet Count 152 x10^3/uL (150-450); Red Blood Count 4.16 x10^6/uL (4.1-5.4); Red Cell Distribution Width 13.3 % (11.5-14.0); White Blood Count 7.3 x10^3/uL (4.0-10.5)
[2022-08-22 06:05] LABS: ANION GAP 13.1 MEQ/L (5-15); BLOOD UREA NITROGEN 7 mg/dL (7-17); CHLORIDE 104 mmol/L (98-107); Calcium 8.8 mg/dL (8.4-10.2); Carbon Dioxide 27 mmol/L (22-30); Cholesterol 112 mg/dL (50-200); Creatinine 1 0.64 mg/dL (0.52-1.04); EST GLOMERULAR FILTRATION RATE > 60.0 ML/MIN; Glucose 138 mg/dL (74-106); HDL CHOLESTEROL 34 mg/dL (40-60); LDL, DIRECT 52 mg/dL (30-100); NT PRO BNPII 98.5 pg/mL (<300); Potassium 4.1 mmol/L (3.5-5.1); Risk Ratio 3.3; SODIUM 140 mmol/L (137-145); TRIGLYCERIDE 213 mg/dL (30-150)
[2022-08-22 06:14] LABS: Appearance Cloudy (Clear); Bilirubin Negative (Negative); Blood Negative (Negative); Glucose, Urine Negative (Negative); Ketones Negative (Negative); Leukocyte Esterase Moderate (Negative); Nitrite Negative (Negative); Protein,Urine Dip Negative (Negative); Specific Gravity <=1.005 (1.005-1.030); Urobilinogen 0.2 mg/dL (0.2)
[2022-08-22 06:18] LABS: Bacteria Few /HPF (None Seen); Epithelial Cells Many /HPF (None Seen); Hyaline Casts NONE SEEN /LPF (0-2); WBC >100 /HPF (0-5)
[2022-08-22 06:58] LABS: Budding Yeast Few /HPF (None Seen)
[2022-08-22 06:59] LABS: ADD URINE CULTURE? YES (NO)
[2022-08-22] MEDS ORDERED: AMARYL 4 MG PO SCH (08:00)
[2022-08-22] MEDS ORDERED: Novolin N SQ SCH (08:00)
[2022-08-22] MEDS ORDERED: Glucophage 500 MG PO SCH (08:00)
[2022-08-22] MEDS: HUMALOG SQ SCH ×2 (08:20→12:32)
[2022-08-22] MEDS: Pepcid 20 MG VIAL IV SCH (09:16)
[2022-08-22] MEDS ORDERED: Coreg 3.125 MG PO SCH (10:00)
[2022-08-22] MEDS ORDERED: Protonix 40MG Tablet PO SCH (10:00)
[2022-08-22] MEDS ORDERED: ECOTRIN 81 MG PO SCH (10:00)
[2022-08-22] MEDS ORDERED: PRISTIQ ER PO SCH (10:00)
[2022-08-22] MEDS ORDERED: PLAVIX Tablet PO SCH (10:00)
[2022-08-22] MEDS ORDERED: ENOXAPARIN SODIUM SQ SCH (10:00)
[2022-08-22 11:44] VITALS: BP 174/76; PULSE 63; O2SAT 97
[2022-08-22] MEDS ORDERED: ZOCOR 20MG PO SCH (13:00)
[2022-08-22] MEDS ORDERED: Docusate Sodium 100 MG PO SCH (13:00)
[2022-08-22] MEDS ORDERED: Prozac 20 MG PO SCH (13:00)
[2022-08-22] MEDS ORDERED: ANTIVERT 25 MG PO SCH (15:00)
[2022-08-23] MEDS ORDERED: LIPITOR 40MG PO SCH (10:00)
[2022-08-23] MEDS ORDERED: NON-FORMULARY ITEM (Fluoxetine Hcl [Prozac] 40 MG Capsule) PO SCH (10:00)
== END 2022-08-22 13:30 | disposition home or self-care (01) ==
LOC: ED 17:38 → MED SURG 22:06
PROVIDERS: ADMIT Internal Medicine; ATTEND Family Medicine
DX: R07.9 Chest pain, unspecified (principal); E11.65 Type 2 diabetes mellitus with hyperglycemia; J44.9 Chronic obstructive pulmonary disease, unspecified; E78.5 Hyperlipidemia, unspecified; I25.10 Atherosclerotic heart disease of native coronary artery without angina pectoris; I10 Essential (primary) hypertension; I25.2 Old myocardial infarction; Z99.81 Dependence on supplemental oxygen; Z85.3 Personal history of malignant neoplasm of breast; Z85.118 Personal history of other malignant neoplasm of bronchus and lung; Z79.01 Long term (current) use of anticoagulants; Z79.899 Other long term (current) drug therapy; Z20.828 Contact with and (suspected) exposure to other viral communicable diseases
CPT/HCPCS: 0241U; 36000; 36415; 71045; 80048; 80053; 80061; 81001; 82947; 83605; 83690; 83721; 83735; 83880; 84484; 85025; 85027; 85379; 85610; 85730; 87086; 93005; 93041; 93268; 94760; 96374; 99285; G0378; J1642; J1817; J2270; A9270-GY

== ENCOUNTER 2022-10-26 11:56 | Emergency (ER) | payer MEDICARE ==
--- NOTE | 2022-10-26 12:14 | ERPHSYRPT ---
- History of Present Illness Time Seen by Provider: 10/26/22 12:14 Source: patient, family Exam Limitations: no limitations Physician History: This is an obese 71-year-old white female who presents with multiple complaints including dizziness, chest pain, back pain, and weakness. Patient has had history of vertigo and takes meclizine for this. However in the last couple days patient states she has not taken her meclizine. She said her dizziness is the main complaint today and only once in the past as she had this severe and lasting this long. Patient has a history of gastroesophageal reflux disease, diabetes, hypertension and hyperlipidemia. She has coronary artery disease and has had a stent in place and is on Plavix. Her chest pain is a band across her anterior chest horizontally. She has no significant shortness of breath. She has no abdominal pain. She has not had a fever and she denies cough. Timing/Duration: day(s) (2) Severity: moderate Character of Deficits: none Deficits: cannot stand (Secondary to dizziness), cannot walk (Secondary to d izziness) Baseline/Normal Cognition: alert oriented x 3 Current Cognition: alert oriented x 3 Baseline Gait: walks w/o assistance Associated Symptoms: nausea, vomiting, weakness, chest pain, No slurred speech, No vision changes Allergies/Adverse Reactions: hydromorphone [From Dilaudid] Allergy (Severe, Verified 10/26/22 12:17) sulfamethoxazole [From Sulfamethoxazole-Trimethoprim] Allergy (Intermediate, Verified 10/26/22 12:17) trimethoprim [From Sulfamethoxazole-Trimethoprim] Allergy (Intermediate, Verified 10/26/22 12:17) acetaminophen [From Darvocet-N 100] Allergy (Verified 10/26/22 12:17) "SHUTS DOWN MY SYSTEM" amoxicillin [From Augmentin] Allergy (Verified 10/26/22 12:17) clavulanic acid [From Augmentin] Allergy (Verified 10/26/22 12:17) codeine Allergy (Verified 10/26/22 12:17) "SHUTS MY SYSTEMS DOWN" nalbuphine HCl [From Nubain] Allergy (Verified 10/26/22 12:17) "SHUTS MY SYSTEM DOWN" propoxyphene napsylate [From Darvocet-N 100] Allergy (Verified 10/26/22 12:17) "SHUTS DOWN MY SYSTEM" gabapentin [From Neurontin] Adverse Reaction (Verified 10/26/22 12:17) surgical tape Allergy (Uncoded 10/26/22 12:17) Home Medications: Omeprazole 20 MG [Prilosec 20 mg] 20 mg PO DAILY 03/20/13 [History] Glimepiride 4 mg [Amaryl 4 mg] 4 mg PO BID 11/22/17 [History] Metformin HCl 500 mg PO BID 11/22/17 [History] Nitroglycerin 0.4 mg Tablet [Nitrostat 0.4 MG Tablet] 0.4 mg SL UD 11/22/17 [History] Atorvastatin Calcium [Lipitor] 40 mg PO DAILY 07/24/19 [History] Aspirin 81 mg PO DAILY 10/29/20 [History] Clopidogrel Bisulfate [PLAVIX Tablet] 75 mg PO DAILY 10/29/20 [History] Insulin Lispro [Humalog] 30 unit SQ TID 10/29/20 [History] Desvenlafaxine [Desvenlafaxine ER] 50 mg PO DAILY 09/12/21 [History] Carvedilol 3.125 mg [Coreg 3.125 MG] 1 tab PO BID 08/21/22 [History] Docusate Sodium [Colace] 1 cap PO DAILY 08/21/22 [History] Fluoxetine HCl [Prozac] 1 cap PO DAILY 08/21/22 [History] Insulin NPH Human Recom [Novolin N] 60 unit SQ BID 08/21/22 [History] Meclizine HCl 25 mg [Antivert 25 mg] 1 tab PO TID 08/21/22 [History] Hx Tetanus, Diphtheria Vaccination/Date Given: Yes Hx Influenza Vaccination/Date Given: Yes Hx Pneumococcal Vaccination/Date Given: Yes Travel Risk - International Travel Have you traveled outside of the country in past 3 weeks: No - Coronavirus Screening Are you exhibiting any of the following symptoms?: No Close contact with a COVID-19 positive Pt in past 14-21 Days: No - Vaccine Status Have you recieved a Covid-19 vaccination: Yes 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 - Vaccination Dates Date of 2cond Vaccination (if applicable): 07/24/2020 - Review of Systems Constitutional: Weakness Eyes: No Symptoms Ears, Nose, & Throat: No Symptoms Respiratory: No Symptoms Cardiac: Chest Pain Abdominal/Gastrointestinal: Nausea, Vomiting, No Abdominal Pain Genitourinary Symptoms: No Symptoms Musculoskeletal: Back Pain Skin: No Symptoms Neurological: Dizziness Psychological: No Symptoms Endocrine: No Symptoms Hematologic/Lymphatic: No Symptoms Immunological/Allergic: No Symptoms All Other Systems: Reviewed and Negative - Past Medical History Pertinent Past Medical History: Yes Neurological History: No Pertinent History ENT History: Cataracts Cardiac History: Congestive Heart Failure, Hypertension, Myocardial Infarction ([place]) Respiratory History: CHF, COPD, Lung Cancer Endocrine Medical History: Diabetes Type II Musculoskeletal History: Arthritis, Fractures GI Medical History: Diverticulitis, Diverticulosis, Gallbladder Disease History: No Pertinent History Psycho-Social History: No Pertinent History Female Reproductive Disorders: Breast Cancer, Fibroids Other Medical History: BACK SURGERY LAMINECTOMY L4-L5 1987. BILATERAL CARPAL TUNNEL SURGERY. THORACIC OUTLET SURGERY. PARTIAL COLECTOMY DUE TO DIVERTICULITIS - Past Surgical History Past Surgical History: Yes Neuro Surgical History: No Pertinent History Cardiac: Cardiac Stent Respiratory: Lobectomy Gastrointestinal: Cholecystectomy, Colon Resection Genitourinary: No Pertinent History Musculoskeletal: Other Female Surgical History: Hysterectomy, Mastectomy Other Surgical History: BACK SURGERY LAMINECTOMY L4-L5 1987, BILATERAL CARPAL TUNNEL SURGERY, THORACIC OUTLET SURGERY, PARTIAL COLECTOMY DUE TO DIVERTICULITIS, partial right mastectomy. - Social History Smoking Status: Former smoker How long have you smoked: 50 years Exposure to second hand smoke: No Drug Use: none Patient Lives Alone: No - Nursing Vital Signs Nursing Vital Signs: Initial Vital Signs Temperature 97.2 F 10/26/22 12:26 Pulse Rate 61 10/26/22 12:26 Respiratory Rate 18 10/26/22 12:26 Blood Pressure 172/74 10/26/22 12:26 O2 Sat by Pulse Oximetry 97 10/26/22 12:26 Pain Scale Pain Intensity 0 - Jimmie Coma Scale Best Eye Response ([place]): (4) open spontaneously Best Verbal Response (Jimmie): (5) oriented Best Motor Response ([place]): (6) obeys commands Jimmie Total: 15 - Physical Exam General Appearance: no apparent distress, alert, anxiety, obese Eye Exam: bilateral eye: normal inspection, PERRL, EOMI Ears, Nose, Throat Exam: normal ENT inspection, moist mucous membranes Neck Exam: normal inspection, non-tender, supple, full range of motion Respiratory: normal breath sounds, chest tenderness, lungs clear, airway intact, No respiratory distress Cardiovascular: regular rate/rhythm, normal heart sounds, normal peripheral pulses Gastrointestinal: soft, normal bowel sounds, No tenderness Pelvic Exam: not done Rectal Exam: not done Back Exam: normal inspection, normal range of motion, No CVA tenderness, No vertebral tenderness Extremity Exam: normal inspection, normal range of motion, pelvis stable Mental Status: alert, 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 Computer readout says pacemaker spikes or artifact. EKG today is not different than the twelve-lead EKG that was performed on 08/21/2022.) Ordered Tests: Active Orders 24 hr Category Date Time Status EKG-ER Only STAT Care 10/26/22 12:36 Active IV Insertion STAT Care 10/26/22 12:36 Active HEAD WITHOUT CONTRAST [CT] Stat Exams 10/26/22 12:37 Completed CBC W DIFF Stat Lab 10/26/22 13:35 Completed CMP Stat Lab 10/26/22 12:36 Completed MAGNESIUM Stat Lab 10/26/22 12:36 Completed TROPONIN Q4H Lab 10/26/22 12:45 Completed TROPONIN Q4H Lab 10/26/22 16:45 Ordered TROPONIN Q4H Lab 10/26/22 20:45 Ordered UA W/RFX UR CULTURE Stat Lab 10/26/22 14:22 Completed Medication Summary Generic Name Dose Route Start Last Admin Trade Name Freq PRN Reason Stop Dose Admin Sodium Chloride 1,000 mls @ 100 mls/hr 10/26/22 12:45 10/26/22 12:40 Sodium Chloride 0.9% 1000 Ml IV 11/25/22 12:44 100 mls/hr .Q10H ERIC Administration Discontinued Medications Generic Name Dose Route Start Last Admin Trade Name Freq PRN Reason Stop Dose Admin Prochlorperazine Edisylate 5 mg 10/26/22 12:37 10/26/22 12:40 Prochlorperazine Edisylate 10 Mg/2 Ml Vial IV 10/26/22 12:38 5 mg STAT ONE Administration Prochlorperazine Edisylate Confirm 10/26/22 12:39 Prochlorperazine Edisylate 10 Mg/2 Ml Vial Administered 10/26/22 12:40 Dose 10 mg .ROUTE .[facility] ONE Prochlorperazine Edisylate 5 mg 10/26/22 14:26 10/26/22 14:30 Prochlorperazine Edisylate 10 Mg/2 Ml Vial IV 10/26/22 14:27 5 mg STAT ONE Administration Prochlorperazine Edisylate Confirm 10/26/22 14:28 Prochlorperazine Edisylate 10 Mg/2 Ml Vial Administered 10/26/22 14:29 Dose 10 mg .ROUTE .[facility] ONE Lab/Rad Data: Laboratory Result Diagrams 10/26/22 13:35 10/26/22 12:36 Laboratory Results 10/26/22 10/26/22 10/26/22 Range/Units 14:22 13:35 12:45 WBC 6.0 (4.0-10.5) x10^3/uL RBC 4.14 (4.1-5.4) x10^6/uL Hgb 12.0 (12.0-16.0) g/dL Hct 39.4 (35-47) % MCV 95.2 (78-100) fL MCH 29.0 (26-32) pg MCHC 30.5 L (32-36) g/dL RDW 14.0 (11.5-14.0) % Plt Count 179 (150-450) x10^3/uL MPV 11.2 H (7.5-11.0) fL Gran % 52.7 (36.0-66.0) % Immature Gran % (Auto) 0.2 (0.00-0.4) % Nucleat RBC Rel Count 0.0 (0.00-0.1) % Eos # (Auto) 0.11 (0-0.5) x10^3/uL Immature Gran # (Auto) 0.01 (0.00-0.03) x10^3u/L Absolute Lymphs (auto) 2.19 (1.0-4.6) x10^3/uL Absolute Monos (auto) 0.50 (0.0-1.3) x10^3/uL Absolute Nucleated RBC 0.00 (0.00-0.01) x10^3u/L Lymphocytes % 36.3 (24.0-44.0) % Monocytes % 8.3 (0.0-12.0) % Eosinophils % 1.8 (0.00-5.0) % Basophils % 0.7 (0.0-0.4) % Absolute Granulocytes 3.18 (1.4-6.9) x10^3/uL Basophils # 0.04 (0-0.4) x10^3/uL Sodium (137-145) mmol/L Potassium (3.5-5.1) mmol/L Chloride (98-107) mmol/L Carbon Dioxide (22-30) mmol/L Anion Gap (5-15) MEQ/L BUN (7-17) mg/dL Creatinine (0.52-1.04) mg/dL Estimated GFR ML/MIN Glucose (74-106) mg/dL Calcium (8.4-10.2) mg/dL Magnesium (1.6-2.3) mg/dL Total Bilirubin (0.2-1.3) mg/dL AST (14-36) U/L ALT (0-35) U/L Alkaline Phosphatase (38-126) U/L Troponin I < 0.012 (0.000-0.034) ng/mL Serum Total Protein (6.3-8.2) g/dL Albumin (3.5-5.0) g/dL Urine Color Yellow (Yellow) Urine Appearance Clear (Clear) Urine pH 6.5 (4.6-8.0) Ur Specific [place] 1.015 (1.005-1.030) Urine Protein Negative (Negative) Urine Glucose (UA) Negative (Negative) mg/dL Urine Ketones Negative (Negative) Urine Blood Negative (Negative) Urine Nitrite Negative (Negative) Urine Bilirubin Negative (Negative) Urine Urobilinogen 0.2 (0.2) mg/dL Ur Leukocyte Esterase Trace A (Negative) U Hyaline Cast (Auto) NONE SEEN (0-2) /LPF Urine Microscopic RBC 0-2 (0-5) /HPF Urine Microscopic WBC 3-5 (0-5) /HPF Ur Epithelial Cells Rare (None Seen) /HPF Urine Bacteria None Seen (None Seen) /HPF Urine Culture Reflexed NO (NO) 10/26/22 Range/Units 12:36 WBC (4.0-10.5) x10^3/uL RBC (4.1-5.4) x10^6/uL Hgb (12.0-16.0) g/dL Hct (35-47) % MCV (78-100) fL MCH (26-32) pg MCHC (32-36) g/dL RDW (11.5-14.0) % Plt Count (150-450) x10^3/uL MPV (7.5-11.0) fL Gran % (36.0-66.0) % Immature Gran % (Auto) (0.00-0.4) % Nucleat RBC Rel Count (0.00-0.1) % Eos # (Auto) (0-0.5) x10^3/uL Immature Gran # (Auto) (0.00-0.03) x10^3u/L Absolute Lymphs (auto) (1.0-4.6) x10^3/uL Absolute Monos (auto) (0.0-1.3) x10^3/uL Absolute Nucleated RBC (0.00-0.01) x10^3u/L Lymphocytes % (24.0-44.0) % Monocytes % (0.0-12.0) % Eosinophils % (0.00-5.0) % Basophils % (0.0-0.4) % Absolute Granulocytes (1.4-6.9) x10^3/uL Basophils # (0-0.4) x10^3/uL Sodium 141 (137-145) mmol/L Potassium 4.6 (3.5-5.1) mmol/L Chloride 103 (98-107) mmol/L Carbon Dioxide 27 (22-30) mmol/L Anion Gap 14.9 (5-15) MEQ/L BUN 12 (7-17) mg/dL Creatinine 0.56 (0.52-1.04) mg/dL Estimated GFR > 60.0 ML/MIN Glucose 208 H (74-106) mg/dL Calcium 9.1 (8.4-10.2) mg/dL Magnesium 1.9 (1.6-2.3) mg/dL Total Bilirubin 0.60 (0.2-1.3) mg/dL AST 27 (14-36) U/L ALT 26 (0-35) U/L Alkaline Phosphatase 66 (38-126) U/L Troponin I (0.000-0.034) ng/mL Serum Total Protein 7.3 (6.3-8.2) g/dL Albumin 4.0 (3.5-5.0) g/dL Urine Color (Yellow) Urine Appearance (Clear) Urine pH (4.6-8.0) Ur Specific [place] (1.005-1.030) Urine Protein (Negative) Urine Glucose (UA) (Negative) mg/dL Urine Ketones (Negative) Urine Blood (Negative) Urine Nitrite (Negative) Urine Bilirubin (Negative) Urine Urobilinogen (0.2) mg/dL Ur Leukocyte Esterase (Negative) U Hyaline Cast (Auto) (0-2) /LPF Urine Microscopic RBC (0-5) /HPF Urine Microscopic WBC (0-5) /HPF Ur Epithelial Cells (None Seen) /HPF Urine Bacteria (None Seen) /HPF Urine Culture Reflexed (NO) - Progress Progress: improved, re-examined Progress Note: 10/26/22 13:33 CT scan of the head without contrast shows a nonacute senile brain with remote bilateral basal ganglia lacunar infarcts. 10/26/22 13:34 This patient's medical issue is 1 of moderate complexity. Level of complexity and the work-up performed is based on the review of the patient's past medical history, review of the patient's medication list, review of the patient's drug allergy list, history present illness, and physical findings on examination. This patient work-up includes CT scan of the head without contrast, twelve-lead EKG, CBC, CMP, troponin, and urinalysis. We provided the patient with an intravenous line and low rate normal saline solution as well as intravenous Compazine 5 mg. We are awaiting the results of these studies. 10/26/22 15:00 Patient's symptoms have improved. Patient did not take her meclizine and did not take her blood pressure medicine this morning. We will give her a dose of labetalol intravenously here. We anticipate discharging her to home. She is feeling better. Her work-up is negative for any acute or emergent medical issue. Counseled pt/family regarding: lab results, diagnosis, need for follow-up, rad results Medical Desision Making - Independent Historian Additional History obtained from: Family (Sister) - Diagnostic Testing Diagnostic test were ordered, analyzed, and reviewed by me: Yes Radiological Interpretation: Reviewed by me, Teleradiologist Report - Departure Departure Disposition: Home Clinical Impression: Dizziness, Hypertension Condition: Stable Critical Care Time: No Referrals: EMRE MILLER [Primary Care Provider] - Follow up/PCP as directed Additional Instructions: Drink plenty of fluids. Take your meclizine daily as prescribed. Follow-up with your prescribing provider tomorrow by phone to make arranges for follow-up appointment in the next 3 days.
[2022-10-26] MEDS ORDERED: Compazine 10 MG/2 ML IV ONE ×2 (12:37→14:26)
[2022-10-26] MEDS ORDERED: Sodium Chloride 0.9% 1000 ML 1,000 ML ONE (12:39)
[2022-10-26] MEDS ORDERED: Compazine 10 MG/2 ML ONE ×2 (12:39→14:28)
[2022-10-26] MEDS ORDERED: Sodium Chloride 0.9% 1000 ML 1,000 ML IV SCH (12:45)
--- NOTE | 2022-10-26 13:26 | XRAY ---
Indication: Dizziness. Near-syncope. Multiple contiguous axial images obtained through the head without contrast. Comparison: None Age-appropriate global atrophy and minimal periventricular degenerative micro-ischemia. Remote lacunar infarct basal ganglia bilaterally. No acute intracranial hemorrhage, abnormal extra-axial fluid collection, or mass effect. Fourth ventricle is midline without hydrocephalus. Bony calvarium intact. Visualized paranasal sinuses and mastoid air cells are clear. Impression: Nonacute senile brain with remote bilateral basal ganglia lacunar infarcts.
[2022-10-26 13:40] LABS: Absolute Neutrophil Ct (ANC) 3.18 x10^3/uL (1.4-6.9); BASOPHIL % 0.7 % (0.0-0.4); Basophil (Absolute #) 0.04 x10^3/uL (0-0.4); Eosinophil % 1.8 % (0.00-5.0); Eosinophil (Absolute #) 0.11 x10^3/uL (0-0.5); Hematocrit 39.4 % (35-47); IMMATURE GRAN # 0.01 x10^3u/L (0.00-0.03); IMMATURE GRAN % 0.2 % (0.00-0.4); Lymphocyte (Absolute #) 2.19 x10^3/uL (1.0-4.6); Lymphocytes % 36.3 % (24.0-44.0); Mean Cell Volume 95.2 fL (78-100); Mean Corpuscular Hgb Concent. 30.5 g/dL (32-36); Mean Platelet Volume 11.2 fL (7.5-11.0); Monocytes % 8.3 % (0.0-12.0); Neutrophil % 52.7 % (36.0-66.0); Platelet Count 179 x10^3/uL (150-450); Red Blood Count 4.14 x10^6/uL (4.1-5.4)
[2022-10-26 13:58] LABS: ALKALINE PHOSPHATASE 66 U/L (38-126); ANION GAP 14.9 MEQ/L (5-15); BLOOD UREA NITROGEN 12 mg/dL (7-17); CHLORIDE 103 mmol/L (98-107); Calcium 9.1 mg/dL (8.4-10.2); Carbon Dioxide 27 mmol/L (22-30); Creatinine 1 0.56 mg/dL (0.52-1.04); EST GLOMERULAR FILTRATION RATE > 60.0 ML/MIN; Glucose 208 mg/dL (74-106); MAGNESIUM 1.9 mg/dL (1.6-2.3); Potassium 4.6 mmol/L (3.5-5.1); SGOT/AST 27 U/L (14-36); SGPT/ALT 26 U/L (0-35); SODIUM 141 mmol/L (137-145); Total Protein 7.3 g/dL (6.3-8.2)
[2022-10-26 14:37] LABS: Appearance Clear (Clear); Bacteria None Seen /HPF (None Seen); Bilirubin Negative (Negative); Blood Negative (Negative); Epithelial Cells Rare /HPF (None Seen); Glucose, Urine Negative (Negative); Hyaline Casts NONE SEEN /LPF (0-2); Ketones Negative (Negative); Leukocyte Esterase Trace (Negative); Nitrite Negative (Negative); Ph 6.5 (4.6-8.0); Protein,Urine Dip Negative (Negative); RBC 0-2 /HPF (0-5); Specific Gravity 1.015 (1.005-1.030); Urobilinogen 0.2 mg/dL (0.2)
[2022-10-26 14:39] LABS: ADD URINE CULTURE? NO (NO)
[2022-10-26] MEDS ORDERED: TRANDATE 20 MG/4 ML SYRINGE IV ONE ×2 (14:59→15:25)
[2022-10-26 15:45] VITALS: BP 170/87; PULSE 54; O2SAT 97
== END 2022-10-26 15:58 | disposition home or self-care (01) ==
LOC: ED 11:56
DX: R42 Dizziness and giddiness (principal); I11.0 Hypertensive heart disease with heart failure; I50.9 Heart failure, unspecified; R07.9 Chest pain, unspecified; M54.9 Dorsalgia, unspecified; R53.1 Weakness; E11.9 Type 2 diabetes mellitus without complications; E78.5 Hyperlipidemia, unspecified; Z79.02 Long term (current) use of antithrombotics/antiplatelets; Z79.84 Long term (current) use of oral hypoglycemic drugs; Z79.4 Long term (current) use of insulin; Z79.899 Other long term (current) drug therapy
CPT/HCPCS: 36000; 36415; 70450; 80053; 81001; 83735; 84484; 85025; 93005; 96374; 96375; 96376; 99284

== ENCOUNTER 2024-05-24 12:17 | Emergency (ER) | payer MEDICARE, OTHER ==
--- NOTE | 2024-05-24 12:25 | ERPHSYRPT ---
- History of Present Illness Time Seen by Provider: 05/24/24 12:25 Source: patient, family, EMS Exam Limitations: no limitations Patient Subjective Stated Complaint: pt c/o of left hip pain Triage Nursing Assessment: Pt was brought to the ER by EMS, hypertensive, rates pain as 10/10, pulses normal, skin n/w/d, denies injury, hx of sciatica, pt re ports this pain stays in her left hip, no difficulty breathing, doesn't appear to be in any distress Physician History: This is a 23-year-old white female patient who presents to the emergency department by the storeperson service because of severe left hip pain. Patient di d not suffer any acute fall or trauma. Patient has a history of sciatica. When I was performing my history and physical exam, the also stated that over the last few weeks the patient has had intermittent confusion as well as intermittent chest pain. Patient has multiple medical issues. She was brought to the emergency department secondary to left hip pain. She is currently not confused. She is currently not having any chest pain. Timing/Duration: day(s) (3) Context: other (No fall or trauma) Quality: sharpness, stabbing Hip Pain Location: hip (L) Severity of Pain-Max: moderate Severity of Pain-Current: moderate Modifying Factors: Improves With: movement Symptoms prior to fall: none Associated Symptoms: denies symptoms Allergies/Adverse Reactions: hydromorphone [From Dilaudid] Allergy (Severe, Verified 05/24/24 12:25) sulfamethoxazole [From Sulfamethoxazole-Trimethoprim] Allergy (Intermediate, Verified 05/24/24 12:25) trimethoprim [From Sulfamethoxazole-Trimethoprim] Allergy (Intermediate, Verified 05/24/24 12:25) acetaminophen [From Darvocet-N 100] Allergy (Verified 05/24/24 12:25) "SHUTS DOWN MY SYSTEM" amoxicillin [From Augmentin] Allergy (Verified 05/24/24 12:25) clavulanic acid [From Augmentin] Allergy (Verified 05/24/24 12:25) codeine Allergy (Verified 05/24/24 12:25) "SHUTS MY SYSTEMS DOWN" nalbuphine HCl [From Nubain] Allergy (Verified 05/24/24 12:25) "SHUTS MY SYSTEM DOWN" propoxyphene napsylate [From Darvocet-N 100] Allergy (Verified 05/24/24 12:25) "SHUTS DOWN MY SYSTEM" gabapentin [From Neurontin] Adverse Reaction (Verified 05/24/24 12:25) surgical tape Allergy (Uncoded 05/24/24 12:25) Home Medications: Omeprazole 20 MG [Prilosec 20 mg] 20 mg PO DAILY 03/20/13 [History] Metformin HCl 500 mg PO BID 11/22/17 [History] Nitroglycerin 0.4 mg Tablet [Nitrostat 0.4 MG Tablet] 0.4 mg SL UD 11/22/17 [History] Atorvastatin Calcium [Lipitor] 40 mg PO DAILY 07/24/19 [History] Aspirin 81 mg PO DAILY 10/29/20 [History] Clopidogrel Bisulfate [PLAVIX Tablet] 75 mg PO DAILY 10/29/20 [History] Desvenlafaxine [Desvenlafaxine ER] 50 mg PO DAILY 09/12/21 [History] Carvedilol 3.125 mg [Coreg 3.125 MG] 12.5 tab PO BID 08/21/22 [History] Docusate Sodium [Colace] 1 cap PO DAILY 08/21/22 [History] Fluoxetine HCl [Prozac] 1 cap PO DAILY 08/21/22 [History] Insulin NPH Human Recom [Novolin N] 20 unit SQ BID 08/21/22 [History] Budesonide/Glycopyr/Formoterol [Breztri Aerosphere Inhaler] 2 inh PO BID PRN 05/24/24 [History] Empagliflozin [Jardiance] 25 mg PO DAILY 05/24/24 [History] Famotidine 20 mg PO BID 05/24/24 [History] Ranolazine [Ranolazine ER] 500 mg PO BID 05/24/24 [History] Hx Tetanus, Diphtheria Vaccination/Date Given: Yes Hx Influenza Vaccination/Date Given: Yes Hx Pneumococcal Vaccination/Date Given: Yes Travel Risk - International Travel Have you traveled outside of the country in past 3 weeks: No - Emerging Infectious Disease Are you exhibiting symptoms associated with any current EIDs: No - Review of Systems Constitutional: No Symptoms Eyes: No Symptoms Ears, Nose, & Throat: No Symptoms Respiratory: No Symptoms Cardiac: No Symptoms Abdominal/Gastrointestinal: No Symptoms Genitourinary Symptoms: No Symptoms Musculoskeletal: Other (Left hip pain), No Fall Skin: No Symptoms Neurological: No Symptoms Psychological: No Symptoms Endocrine: No Symptoms Hematologic/Lymphatic: No Symptoms Immunological/Allergic: No Symptoms All Other Systems: Reviewed and Negative - Past Medical History Pertinent Past Medical History: Yes Neurological History: Other ENT History: Cataracts Cardiac History: Hypertension, Myocardial Infarction ([place]) Respiratory History: COPD Endocrine Medical History: Diabetes Type II Musculoskeletal History: Fibromyalgia, Osteoarthritis GI Medical History: Diverticulitis, Diverticulosis, Gallbladder Disease History: No Pertinent History Psycho-Social History: No Pertinent History Female Reproductive Disorders: Breast Cancer, Fibroids Other Medical History: TESTS SHOW A COUPLE OF STROKES. 3 STINTS, A CURRENT BLO CKAGE. - Past Surgical History Past Surgical History: Yes Neuro Surgical History: No Pertinent History Cardiac: Cardiac Stent Respiratory: Lobectomy Gastrointestinal: Cholecystectomy, Colon Resection Genitourinary: No Pertinent History Musculoskeletal: Other Female Surgical History: Hysterectomy, Mastectomy Other Surgical History: BACK SURGERY LAMINECTOMY L4-L5 1987, BILATERAL CARPAL TUNNEL SURGERY, THORACIC OUTLET SURGERY, PARTIAL COLECTOMY DUE TO DIVERTIC ULITIS, partial right mastectomy. - Social History Smoking Status: Former smoker How long have you smoked: 50 years Exposure to second hand smoke: No Drug Use: none Patient Lives Alone: No - Social Determinants of Health Will the patient participate in the screening: Yes Do you worry about a steady place to live?: No Do you have any problems with any of the following?: No known problems In the past 12 months,have you had to go without utilities?: No Transportation Issues: No Has anyone in your support network made you feel unsafe?: No Have you or anyone in your house had to go without enough: No - Nursing Vital Signs Nursing Vital Signs: Initial Vital Signs Temperature 96.4 F 05/24/24 12:19 Pulse Rate 69 05/24/24 12:19 Blood Pressure 179/82 05/24/24 12:19 O2 Sat by Pulse Oximetry 98 05/24/24 12:19 Pain Scale Pain Intensity 10 - Physical Exam General Appearance: no apparent distress, alert, anxiety Eye Exam: PERRL/EOMI, eyes nml inspection Ears, Nose, Throat Exam: normal ENT inspection, moist mucous membranes Neck Exam: normal inspection, non-tender, supple, full range of motion Respiratory Exam: normal breath sounds, lungs clear, airway intact, No chest tenderness, No respiratory distress Cardiovascular Exam: regular rate/rhythm, normal heart sounds, normal peripheral pulses Gastrointestinal Exam: soft, normal bowel sounds, No tenderness Pelvic Exam: not done Rectal Exam: not done Back Exam: normal inspection, normal range of motion, No CVA tenderness, No vertebral tenderness Extremity Exam: pelvis stable, tenderness (Left hip. However, the patient is laying on her left hip) Neurologic Exam: alert, oriented x 3, cooperative, director home II-XII nml as tested, sensation nml Skin Exam: normal color, warm, dry Lymphatic Exam: No adenopathy SpO2 Interpretation: normal SpO2: 98 O2 Delivery: Room Air - Course Nursing assessment & vital signs reviewed: Yes EKG Interpreted by Me: RATE (68), Sinus Rhythm, LAFB, NORMAL INTERVALS, NORMAL QRS, Right Bundle Branch Block, Other (No acute ischemia. QTc is 483) Ordered Tests: Active Orders 24 hr Category Date Time Status Railcar Switcher STAT Care 05/24/24 13:04 Active EKG-ER Only STAT Care 05/24/24 13:03 Active HEAD WITHOUT CONTRAST [CT] Stat Exams 05/24/24 13:03 Completed LOWER EXTREMITY WO CONTRAST [CT] Stat Exams 05/24/24 12:51 Completed CBC W DIFF Stat Lab 05/24/24 13:03 Completed MAG [MAGNESIUM] Stat Lab 05/24/24 13:42 Received TROPONIN Q4H Lab 05/24/24 17:15 Ordered TROPONIN Q4H Lab 05/24/24 21:15 Ordered Medication Summary Discontinued Medications Generic Name Dose Route Start Last Admin Trade Name Davidq PRN Reason Stop Dose Admin Methylprednisolone Sodium 0 mg 05/24/24 14:42 Succinate 125 mg/ Sterile IM 05/24/24 14:43 Water 2 ml STAT ONE Orphenadrine Citrate 60 mg 05/24/24 14:42 Orphenadrine Citrate 60 Mg/2 Ml Vial IM 05/24/24 14:43 STAT ONE Lab/Rad Data: Laboratory Result Diagrams 05/24/24 13:03 05/24/24 13:03 Laboratory Results 05/24/24 05/24/24 05/24/24 Range/Units 13:42 13:03 13:03 WBC 10.3 H (3.98-10.04) x10^3/uL RBC 4.90 (3.93-5.22) x10^6/uL Hgb 15.4 (11.2-15.7) g/dL Hct 47.4 H (34.1-44.9) % MCV 96.7 H (79.4-94.8) fL MCH 31.4 (25.6-32.2) pg MCHC 32.5 (32.2-35.5) g/dL RDW 13.7 (11.7-14.4) % Plt Count 172 L (182-369) x10^3/uL MPV 11.8 (9.4-12.3) fL Gran % 68.9 (34.0-71.1) % Immature Gran % (Auto) 0.2 (0.001-0.429) % Nucleat RBC Rel Count 0.0 (0.00-0.2) % Eos # (Auto) 0.05 (0.04-0.36) x10^3/uL Immature Gran # (Auto) 0.02 (0.001-0.031) x10^3u/L Absolute Lymphs (auto) 2.07 (1.18-3.74) x10^3/uL Absolute Monos (auto) 1.00 H (0.24-0.86) x10^3/uL Absolute Nucleated RBC 0.00 (0.00-0.012) x10^3u/L Lymphocytes % 20.2 (19.3-51.7) % Monocytes % 9.7 (4.7-12.5) % Eosinophils % 0.5 L (0.7-5.8) % Basophils % 0.5 (0.1-1.2) % Absolute Granulocytes 7.07 H (1.56-6.13) x10^3/uL Basophils # 0.05 (0.01-0.08) x10^3/uL Sodium Direct 138 (138-146) mmol/L Potassium 4.5 (3.5-4.9) mmol/L Chloride 102 (98-109) mmol/L Carbon Dioxide 25 (24-29) mmol/L Venous BUN 23 (8-26) mg/dL Creatinine 0.8 (0.6-1.3) mg/dL Glucose 113 H (70-105) mg/dL Ionized Calcium 1.26 (1.12-1.32) mmol/L Troponin 0.01 (0.00-0.03) ng/mL - Progress Progress: improved, pain not gone completely Progress Note: 05/24/24 13:05 My medical decision making and the assignment of moderate complexity to this patient's medical issue today is based on review of the patient's past medical history, review of the patient's medication list, reviewed patient drug allergy list, history present illness and physical findings on examination. The patient was brought into the emergency department secondary to severe left hip pain. However the stated that she has been intermittently confused and over the last several weeks has had episodes of left anterior, nonradiating chest pain. Patient has significant cardiac disease and we will obtain the CT scan of the left hip, CT scan of the head, twelve-lead EKG, CBC, BMP, magnesium level and troponin level. Differential diagnosis includes but is not limited to acute intracranial abnormality, myocardial infarction, electrolyte abnormalities, sciatica, left hip dislocation, left hip fracture 05/24/24 14:40 I interpreted the patient's laboratory data results. Based on the laboratory data results, the patient has no acute, emergent medical issues. The CT scan of the head without contrast was interpreted by the radiologist and I reviewed the impression. The impression states stable nonacute senile brain with remote bilateral basal ganglia lacunar infarcts. The CT scan of the left hip without contrast was interpreted by the radiologist and I reviewed the impression. The impression states stable osteopenia with degenerative changes. There are scattered arteriosclerotic disease present. No acute findings 05/24/24 14:48 This patient is allergic to hydromorphone and codeine. She typically just uses Tylenol for pain. We will remotely send a prescription for steroids and orphenadrine to her pharmacy. Counseled pt/family regarding: lab results, diagnosis, need for follow-up, rad results Medical Desision Making - Independent Historian Additional History obtained from: Spouse - Diagnostic Testing Diagnostic test were ordered, analyzed, and reviewed by me: Yes Radiological Interpretation: Reviewed by me, Teleradiologist Report - Risk of complications The pt has a mod risk of morbidity or mortality based on: Need for prescription drug management - Departure Departure Disposition: Home Clinical Impression: Left hip pain, Sciatica Condition: Stable Critical Care Time: No Referrals: LAYLA LEOS DO [Primary Care Provider] - Follow up/PCP as directed Additional Instructions: Drink plenty of fluids. Take your medication as prescribed. Call your primary care provider today, 05/24/2024, to make arranges for follow-up appointment to be seen in the next 3 to 5 days. Prescriptions: Prednisone 10 mg [Deltasone 10 mg] 10 mg PO TID #12 tablet Orphenadrine Citrate 100 mg [Norflex 100 MG Tablet] 100 mg PO BID #10 tab
[2024-05-24 13:57] LABS: Absolute Neutrophil Ct (ANC) 7.07 x10^3/uL (1.56-6.13); BASOPHIL % 0.5 % (0.1-1.2); Basophil (Absolute #) 0.05 x10^3/uL (0.01-0.08); Eosinophil % 0.5 % (0.7-5.8); Eosinophil (Absolute #) 0.05 x10^3/uL (0.04-0.36); Hematocrit 47.4 % (34.1-44.9); Hemoglobin 15.4 g/dL (11.2-15.7); IMMATURE GRAN # 0.02 x10^3u/L (0.001-0.031); IMMATURE GRAN % 0.2 % (0.001-0.429); Lymphocyte (Absolute #) 2.07 x10^3/uL (1.18-3.74); Lymphocytes % 20.2 % (19.3-51.7); Mean Cell Volume 96.7 fL (79.4-94.8); Mean Corpuscular Hemoglobin 31.4 pg (25.6-32.2); Mean Corpuscular Hgb Concent. 32.5 g/dL (32.2-35.5); Mean Platelet Volume 11.8 fL (9.4-12.3); Monocytes % 9.7 % (4.7-12.5); Neutrophil % 68.9 % (34.0-71.1); Platelet Count 172 x10^3/uL (182-369); Red Cell Distribution Width 13.7 % (11.7-14.4); White Blood Count 10.3 x10^3/uL (3.98-10.04)
[2024-05-24 14:11] LABS: ISTAT CREA 0.8 mg/dL (0.6-1.3); ISTAT K 4.5 mmol/L (3.5-4.9); ISTAT iCA 1.26 mmol/L (1.12-1.32)
--- NOTE | 2024-05-24 14:30 | XRAY ---
Indication: Intermittent confusion. Multiple contiguous axial images obtained through the head without contrast. Comparison: November 07, 2023 Again age-appropriate global atrophy, minimal periventricular degenerative micro-ischemia, and bilateral basal ganglia remote lacunar infarcts. No acute intracranial hemorrhage, abnormal extra-axial fluid collection, or mass effect. Fourth ventricle is midline without hydrocephalus. Cardona-white matter differentiation preserved. Bony calvarium intact. Visualized paranasal sinuses and mastoid air cells are clear. Impression: Stable nonacute senile brain with remote bilateral basal ganglia lacunar infarcts.
--- NOTE | 2024-05-24 14:34 | XRAY ---
Indication: Pain. Multiple contiguous axial images obtained through left hip. Sagittal and coronal reformatted images obtained. Comparison: Left hip radiograph November 12, 2021. Osseous structures remain demineralized. Stable degenerative chondrocalcinosis and superior acetabular spurring. No acute fracture, dislocation, or suspicious bony lesions. Again incidental degenerative changes both SI joints. Visualized noncontrasted soft tissues again demonstrates mild scattered vascular calcifications. No focal solid/cystic soft tissue mass or abnormal fluid collection. Visualized pelvic contents unremarkable. Impression: Stable osteopenia, degenerative changes, and scattered arteriosclerotic disease. No new/acute findings.
[2024-05-24 14:43] VITALS: TEMP 98.7
[2024-05-24] MEDS ORDERED: Sterile H2O 10 ml IJ ONE (14:54)
[2024-05-24] MEDS ORDERED: solu-MEDROL ONE (14:54)
[2024-05-24] MEDS ORDERED: Norflex 60 MG/2 ML ONE (14:54)
[2024-05-24] MEDS: Norflex 60 MG/2 ML IM ONE (14:56)
[2024-05-24] MEDS: solu-MEDROL 125 MG, Sterile H2O 10 ml 2 ML IM ONE (14:56)
[2024-05-24] MEDS ORDERED: ANTIVERT 25 MG ONE (15:23)
[2024-05-24] MEDS: ANTIVERT 25 MG PO ONE (15:23)
[2024-05-24 16:50] LABS: Appearance Clear (Clear); Bacteria Moderate /HPF (None Seen); Bilirubin Negative (Negative); Blood Negative (Negative); Epithelial Cells Moderate /HPF (None Seen); Glucose, Urine >=1000 mg/dL (Negative); Hyaline Casts NONE SEEN /LPF (0-2); Ketones 40 (Negative); Leukocyte Esterase Trace (Negative); Nitrite Negative (Negative); Ph 5.5 (4.6-8.0); Protein,Urine Dip Trace (Negative); Specific Gravity >=1.030 (1.005-1.030); WBC 21-50 /HPF (0-5)
[2024-05-24] MEDS: Levofloxacin 500 MG Tablet PO ONE (17:04)
[2024-05-24] MEDS ORDERED: Levofloxacin 500 MG Tablet ONE (17:04)
[2024-05-24] MEDS ORDERED: ZOFRAN ODT 4 MG ONE (17:28)
[2024-05-24] MEDS: ZOFRAN ODT 4 MG PO ONE (17:29)
[2024-05-24] MEDS: MORPHINE SULFATE 4 MG INJ IM ONE (17:29)
[2024-05-24] MEDS ORDERED: MORPHINE SULFATE 4 MG INJ ONE (17:29)
[2024-05-24 17:58] VITALS: BP 127/60; PULSE 76; RESP 15; O2SAT 96
== END 2024-05-24 17:53 | disposition home or self-care (01) ==
LOC: ED 12:17
DX: M25.552 Pain in left hip (principal); M54.30 Sciatica, unspecified side; E86.0 Dehydration; N39.0 Urinary tract infection, site not specified; R42 Dizziness and giddiness; Z79.899 Other long term (current) drug therapy; Z79.01 Long term (current) use of anticoagulants
CPT/HCPCS: 36415; 70450; 73700; 80047; 81001; 83735; 84484; 85025; 87086; 93005; 96372; 99284; 99285; J2270; J2360; J2919; Q0162; A9270-GY